=== PATIENT | male | born 1960 | race Caucasian/White ===

== ENCOUNTER 2018-11-17 23:31 | Inpatient (IN) | payer OTHER ==
[2018-11-17] MEDS ORDERED: ONDANSETRON ODT 8 MG TAB.RAPDIS PO STA (23:32)
[2018-11-17] MEDS ORDERED: HYDROmorphone 0.5 MG/0.5 ML SYRINGE IVP STA (23:32)
--- NOTE | 2018-11-17 23:41 | ED ---
Abdominal Pain HPI - General Stated Complaint: abd pain Time Seen by Provider: 11/17/18 23:32 - History of Present Illness Initial Comments: This patient's 58-year-old man brought by to be evaluated for right groin pain. The patient states that it had first come on approximately one week ago when he had also noticed some bulging in the right groin. He states that it became severe starting in the afternoon and he was not able tolerate any movement at all. Patient then came here, by ambulance for evaluation. He denies fever or chills. No change in urination. No vomiting. No change in bowel movements. MD Complaint: abdominal pain Onset/Timin -: week(s) Location: RLQ Radiation: none Severity: severe Quality: aching Consistency: constant Improves With: nothing Worsens With: nothing Associated Symptoms: denies other symptoms - Related Data Home Medications Medication Instructions Recorded Confirmed No Known Home Medications 11/17/18 11/17/18 Allergies Allergy/AdvReac Type Severity Reaction Status Date / Time No Known Allergies Allergy Verified 11/17/18 23:57 Review of Systems ROS Statement: Those systems with pertinent positive or pertinent negative responses have been documented in the HPI. ROS Other: All systems not noted in ROS Statement are negative. Constitutional: Denies: fever, chills Respiratory: Denies: cough, dyspnea Cardiovascular: Denies: chest pain, palpitations, edema Gastrointestinal: Reports: as per HPI, abdominal pain. Denies: vomiting, diarrhea, constipation, melena, hematochezia Genitourinary: Reports: as per HPI, testicular pain, testicular mass. Denies: urgency, dysuria, frequency, hematuria, discharge Musculoskeletal: Denies: back pain Skin: Denies: rash, lesions Neurological: Denies: headache General Exam General appearance: alert, in distress Head exam: Present: atraumatic, normocephalic Eye exam: Present: normal appearance. Absent: scleral icterus, conjunctival injection ENT exam: Present: normal oropharynx Neck exam: Present: normal inspection Respiratory exam: Present: normal lung sounds bilaterally. Absent: respiratory distress, wheezes, rales, rhonchi, stridor Cardiovascular Exam: Present: regular rate, normal rhythm, normal heart sounds. Absent: systolic murmur, diastolic murmur, rubs, gallop GI/Abdominal exam: Present: soft, hernia (There is a right inguinal hernia). Absent: distended, tenderness, guarding, rebound, rigid, mass exam: Present: other (There is an inguinal hernia into the right hemiscrotum.) Extremities exam: Present: normal inspection, normal capillary refill. Absent: pedal edema, calf tenderness Back exam: Present: normal inspection. Absent: CVA tenderness (R), CVA tenderness (L) Neurological exam: Present: alert Skin exam: Present: warm, dry, intact, normal color. Absent: rash Course Vital Signs 11/17/18 11/18/18 23:34 01:36 Temperature 99.2 F Pulse Rate 89 Respiratory 20 Rate Blood Pressure 141/86 O2 Sat by Pulse 100 Oximetry - Reevaluation(s) Reevaluation #1: 11/18/18 01:01 Case is discussed with Dr. Portillo, surgeon on-call. I discussed the history and physical, lab findings, CT result. Medical Decision Making - Medical Decision Making Patient's 58-year-old man presenting with right groin pain and swelling. The patient has obvious inguinal hernia. Case is discussed with Dr. Portillo. His treatment recommendations are incorporated. - Lab Data Result diagrams: 11/17/18 23:45 11/17/18 23:45 Lab Results 11/17/18 11/17/18 11/17/18 Range/Units 23:45 23:45 23:45 WBC 16.1 H (3.8-10.6) k/uL RBC 4.93 (4.30-5.90) m/uL Hgb 14.4 (13.0-17.5) gm/dL Hct 43.1 (39.0-53.0) % MCV 87.4 (80.0-100.0) fL MCH 29.2 (25.0-35.0) pg MCHC 33.4 (31.0-37.0) g/dL RDW 15.0 (11.5-15.5) % Plt Count 280 (150-450) k/uL Neutrophils % 86 % Lymphocytes % 9 % Monocytes % 3 % Eosinophils % 1 % Basophils % 0 % Neutrophils # 13.9 H (1.3-7.7) k/uL Lymphocytes # 1.4 (1.0-4.8) k/uL Monocytes # 0.5 (0-1.0) k/uL Eosinophils # 0.1 (0-0.7) k/uL Basophils # 0.0 (0-0.2) k/uL Sodium 136 L (137-145) mmol/L Potassium 3.5 (3.5-5.1) mmol/L Chloride 104 (98-107) mmol/L Carbon Dioxide 18 L (22-30) mmol/L Anion Gap 14 mmol/L BUN 18 (9-20) mg/dL Creatinine 1.02 (0.66-1.25) mg/dL Est GFR (CKD-EPI)AfAm >90 (>60 ml/min/1.73 sqM) Est GFR (CKD-EPI)NonAf 81 (>60 ml/min/1.73 sqM) Glucose 160 H (74-99) mg/dL Plasma Lactic Acid Melchor 5.8 H* (0.7-2.0) mmol/L Calcium 9.3 (8.4-10.2) mg/dL Total Bilirubin 0.4 (0.2-1.3) mg/dL AST 54 (17-59) U/L ALT 53 (21-72) U/L Alkaline Phosphatase 92 (38-126) U/L Total Protein 7.4 (6.3-8.2) g/dL Albumin 4.3 (3.5-5.0) g/dL Amylase 102 (30-110) U/L Lipase 120 (23-300) U/L Disposition Clinical Impression: Strangulated inguinal hernia Disposition: ADMITTED IP TO THIS [facility] Condition: Critical Is patient prescribed a controlled substance at d/c from ED?: No Referrals: None,Stated [Primary Care Provider] - 1-2 days
[2018-11-18 00:08] LABS: ALT 53 U/L (21-72); AST 54 U/L (17-59); African American GFR (CKD) >90 (>60 ml/min/1.73 sqM); Albumin 4.3 g/dL (3.5-5.0); Alkaline Phosphatase 92 U/L (38-126); Amylase 102 U/L (30-110); Anion Gap 14 mmol/L; Blood Urea Nitrogen 18 mg/dL (9-20); Calcium 9.3 mg/dL (8.4-10.2); Carbon Dioxide 18 mmol/L (22-30); Chloride 104 mmol/L (98-107); Glucose 160 mg/dL (74-99); Lipase 120 U/L (23-300); Potassium 3.5 mmol/L (3.5-5.1); Sodium 136 mmol/L (137-145); Total Bilirubin 0.4 mg/dL (0.2-1.3); Total Protein 7.4 g/dL (6.3-8.2)
[2018-11-18 00:09] LABS: Basophils % (A) 0 %; Eosinophils # (A) 0.1 k/uL (0-0.7); Eosinophils % (A) 1 %; HCT 43.1 % (39.0-53.0); HGB 14.4 gm/dL (13.0-17.5); Lymphocytes # (A) 1.4 k/uL (1.0-4.8); Lymphocytes % (A) 9 %; MCH 29.2 pg (25.0-35.0); MCHC 33.4 g/dL (31.0-37.0); MCV 87.4 fL (80.0-100.0); Mean Platelet Volume 7.4; Monocytes # (A) 0.5 k/uL (0-1.0); Monocytes % (A) 3 %; Neutrophils # (A) 13.9 k/uL (1.3-7.7); Neutrophils % (A) 86 %; Platelet Count 280 k/uL (150-450); RBC 4.93 m/uL (4.30-5.90); WBC 16.1 k/uL (3.8-10.6)
--- NOTE | 2018-11-18 00:53 | CT ---
History: ITS.REASON CT Reason: abdominal pain Exam: CT ABDOMEN + PELVIS With Contrast Technique more: CTDI is 8.6 mGy and DLP is 970.7 mGy-cm. Technique more: This CT exam was performed using one or more of the following dose reduction techniques: automated exposure control, adjustment of the mA and/or kV according to patient size, and/or use of iterative reconstruction technique. Comparison: None available FINDINGS: The lung bases are clear. Abdominal solid organs, gallbladder and abdominal aorta appear within limits. Right renal cyst. Moderate to large right inguinal hernia containing small bowel and fluid with stranding and edema. There is question of decreased to absent appearing enhancement of wall of bowel with in the hernia for example coronal 34 and axial 97 concerning for ischemia, vascular compromise. Short segment of small bowel within the right lower quadrant adjacent to the hernia with segments leading to the hernia mouth with appearance of bowel wall thickening and adjacent mesenteric stranding and edema for example coronal 32 through 41 which may be reactive or due to ischemia. Recommend surgical consult. Retrocecal appendix appears within limits. Diverticulosis. IMPRESSION: Moderate to large right inguinal hernia containing small bowel and fluid with stranding and edema. There is question of decreased to absent appearing enhancement of wall of bowel with in the hernia for example coronal 34 and axial 97 concerning for ischemia, vascular compromise. Short segment of small bowel within the right lower quadrant adjacent to the hernia with segments leading to the hernia mouth with appearance of bowel wall thickening and adjacent mesenteric stranding and edema for example coronal 32 through 41 which may be reactive or due to ischemia. Recommend surgical consult. <MYCVCSECTION> Critical Value Communications 11/18/18 00:53 Call Doctor Regarding Above results, called IMELAD Arredondo on 11/18 00:53 (-04:00)
[2018-11-18] MEDS ORDERED: NALOXONE 0.4 MG/ML 1 ML VIAL IV PRN (01:03)
[2018-11-18] MEDS ORDERED: HYDROmorphone 1 MG/ML 1 ML SYRINGE IVP STA (01:21)
[2018-11-18] MEDS: SODIUM CHLORIDE 0.9% 1,000 ML IV SCH ×3 (01:35→17:18)
[2018-11-18] MEDS ORDERED: SODIUM CHLORIDE 0.9% 1,000 ML IV ONE ×2 (01:45→02:56)
[2018-11-18] MEDS ORDERED: CEFEPIME 2 GM in SODIUM CHLORIDE 0.9% 100 ML IVPB ONE (03:00)
[2018-11-18 03:09] LABS: Appearance,Urine Clear (Clear); Bilirubin,Urine Negative (Negative); Blood,Urine Negative (Negative); Color,Urine Yellow; Glucose,Urine (UA) Negative (Negative); Ketones,Urine Trace (Negative); Leukocyte Esterase,Urine Negative (Negative); Nitrite,Urine Negative (Negative); PH, Urine 6.5 (5.0-8.0); Protein,Urine Negative (Negative); Specific Gravity,Urine 1.039 (1.001-1.035); Urobilinogen,Urine <2.0 mg/dL (<2.0)
[2018-11-18] MEDS: HYDROmorphone 1 MG/ML 1 ML SYRINGE IVP PRN ×4 (06:21→20:53)
[2018-11-18] MEDS: PANTOPRAZOLE 40 MG/10 ML VIAL IV SCH (09:27)
[2018-11-18] MEDS ORDERED: IV FLUID CONTINUATION 300 ML IV ONE (10:37)
[2018-11-18] MEDS ORDERED: ONDANSETRON 4 MG/2 ML VIAL IVP ONE (10:52)
[2018-11-18] MEDS ORDERED: DEXAMETHASONE SOD PHOS (MDV) 100 MG/10 ML VIAL IV ONE (10:53)
--- NOTE | 2018-11-18 11:38 | P.GSHP ---
History of Present Illness H&P Date: 11/18/18 Chief Complaint: Incarcerated right inguinal hernia This is a 58-year-old male who resented to the emergency room last night with right inguinal pain. Patient has a history of a right inguinal hernia for last month. Patient developed increasing pain. Patient had his hernia reduced by the emergency from last night. He states his pain is better. He states the mass in his groin is also improved. Past Medical History Past Medical History: No Reported History History of Any Multi-Drug Resistant Organisms: None Reported Additional Past Surgical History / Comment(s): Pt is unsure but thinks he may have had a colonoscopy many years ago. Past Anesthesia/Blood Transfusion Reactions: No Reported Reaction Smoking Status: Never smoker - Past Family History Father Family Medical History: Cancer, Musculoskeletal Disorder, Neurologic Disorder Additional Family Medical History / Comment(s): Father had melanoma and parkinson's dx. He is . Mother Family Medical History: No Reported History Additional Family Medical History / Comment(s): Mother is healthy Medications and Allergies Home Medications Medication Instructions Recorded Confirmed Type No Known Home Medications 11/17/18 11/17/18 History Allergies Allergy/AdvReac Type Severity Reaction Status Date / Time No Known Allergies Allergy Verified 11/17/18 23:57 Surgical - Exam Vital Signs Pulse Resp BP Pulse Ox 89 20 141/86 100 11/17/18 23:34 11/17/18 23:34 11/17/18 23:34 11/17/18 23:34 - General well developed, well nourished, no distress - Eyes PERRL - ENT normal pinna - Neck no masses - Respiratory normal expansion - Cardiovascular Rhythm: regular - Abdomen Abdomen: soft, non tender Hernia: inguinal (Reducible right inguinal hernia) Results - Labs 11/17/18 23:45 11/17/18 23:45 Abnormal Lab Results - Last 24 Hours (Table) 11/17/18 11/17/18 11/17/18 Range/Units 23:45 23:45 23:45 WBC 16.1 H (3.8-10.6) k/uL Neutrophils # 13.9 H (1.3-7.7) k/uL Sodium 136 L (137-145) mmol/L Carbon Dioxide 18 L (22-30) mmol/L Glucose 160 H (74-99) mg/dL Plasma Lactic Acid Melchor 5.8 H* (0.7-2.0) mmol/L Ur Specific N[place] (1.001-1.035) Urine Ketones (Negative) 11/18/18 Range/Units 03:00 WBC (3.8-10.6) k/uL Neutrophils # (1.3-7.7) k/uL Sodium (137-145) mmol/L Carbon Dioxide (22-30) mmol/L Glucose (74-99) mg/dL Plasma Lactic Acid Melchor (0.7-2.0) mmol/L Ur Specific [place] 1.039 H (1.001-1.035) Urine Ketones Trace H (Negative) Diabetes panel 11/17/18 Range/Units 23:45 Sodium 136 L (137-145) mmol/L Potassium 3.5 (3.5-5.1) mmol/L Chloride 104 (98-107) mmol/L Carbon Dioxide 18 L (22-30) mmol/L BUN 18 (9-20) mg/dL Creatinine 1.02 (0.66-1.25) mg/dL Glucose 160 H (74-99) mg/dL Calcium 9.3 (8.4-10.2) mg/dL AST 54 (17-59) U/L ALT 53 (21-72) U/L Alkaline Phosphatase 92 (38-126) U/L Total Protein 7.4 (6.3-8.2) g/dL Albumin 4.3 (3.5-5.0) g/dL Calcium panel 11/17/18 Range/Units 23:45 Calcium 9.3 (8.4-10.2) mg/dL Albumin 4.3 (3.5-5.0) g/dL Pituitary panel 11/17/18 Range/Units 23:45 Sodium 136 L (137-145) mmol/L Potassium 3.5 (3.5-5.1) mmol/L Chloride 104 (98-107) mmol/L Carbon Dioxide 18 L (22-30) mmol/L BUN 18 (9-20) mg/dL Creatinine 1.02 (0.66-1.25) mg/dL Glucose 160 H (74-99) mg/dL Calcium 9.3 (8.4-10.2) mg/dL Adrenal panel 11/17/18 Range/Units 23:45 Sodium 136 L (137-145) mmol/L Potassium 3.5 (3.5-5.1) mmol/L Chloride 104 (98-107) mmol/L Carbon Dioxide 18 L (22-30) mmol/L BUN 18 (9-20) mg/dL Creatinine 1.02 (0.66-1.25) mg/dL Glucose 160 H (74-99) mg/dL Calcium 9.3 (8.4-10.2) mg/dL Total Bilirubin 0.4 (0.2-1.3) mg/dL AST 54 (17-59) U/L ALT 53 (21-72) U/L Alkaline Phosphatase 92 (38-126) U/L Total Protein 7.4 (6.3-8.2) g/dL Albumin 4.3 (3.5-5.0) g/dL Assessment and Plan Assessment: Right inguinal hernia. Patient will undergo open repair.
[2018-11-18] MEDS ORDERED: ROCURONIUM BROMIDE 10 MG/ML 10 ML VIAL IV ONE (12:01)
[2018-11-18] MEDS ORDERED: GLYCOPYRROLATE 0.2 MG/ML 2 ML VIAL ONE (12:01)
[2018-11-18] MEDS ORDERED: MIDAZOLAM 2 MG/2 ML VIAL ONE (12:01)
[2018-11-18] MEDS ORDERED: LIDOCAINE 1% INJ 10MG/ML (20 ML MDV) ONE (12:01)
[2018-11-18] MEDS ORDERED: PROPOFOL 10 MG/ML 20 ML VIAL IV ONE (12:01)
[2018-11-18] MEDS ORDERED: SUCCINYLCHOLINE CHLORIDE 100 MG/5 ML SYR IV ONE (12:01)
[2018-11-18] MEDS ORDERED: fentaNYL (PF) 50 MCG/ML 2 ML AMP ONE (12:01)
[2018-11-18] MEDS ORDERED: NEOSTIGMINE 1 MG/ML 10 ML VIAL ONE (12:01)
[2018-11-18] MEDS ORDERED: LACTATED RINGERS 1,000 ML IV ONE (12:06)
[2018-11-18] MEDS ORDERED: HEPARIN SODIUM,PORCINE 5,000 UNIT/ML 1 ML VIAL SQ ONE (12:07)
[2018-11-18] MEDS ORDERED: BUPIVACAIN-EPI 0.25%-1:200,000 30 ML VIAL SQ ONE ×3 (12:07→12:48)
[2018-11-18] MEDS ORDERED: SODIUM CHLORIDE 0.9% 100 ML with ceFAZolin 2,000 MG IV ONE ×2 (12:20)
--- NOTE | 2018-11-18 12:59 | P.OP ---
Date of Procedure: 11/18/18 Preoperative Diagnosis: Right inguinal hernia Postoperative Diagnosis: Right inguinal hernia Procedure(s) Performed: (Of right inguinal hernia Anesthesia: NAKIA Surgeon: Florian Portillo Estimated Blood Loss (ml): 5 Pathology: other (Hernia sac) Condition: stable Disposition: PACU Description of Procedure: HDESCRIPTION OF PROCEDURE: The patient was placed in the supine position after receiving adequate anesthesia. Patient's right groin was prepped and draped in the usual sterile fashion. A standard hernia incision was made and the subcutaneous tissues were divided with electrocautery. The fascia of the external oblique was exposed. A ashley the fascia was made with #15 blade. The fascia was then opened with pair of Metzenbaum scissors. A Weitlaner retractor was placed in the wound and the cord structures were grasped and dissected free from the inguinal canal. A rubber Obdulio drain was placed around the cord structures. The hernial sac was seen on the anterior-medial portion of the cord and this was dissected free from the cord. The hernia sac was then invaginated to the peritoneal cavity. Using blunt finger dissection, the preperitoneal space was dissected and then the Prolene hernial mesh plug was placed into the prepared space. The inferior leaf was expanded. The superior leaf was secured to the pubic tubercle using 2-0 Prolene suture. The lateral portion of the superior leaf was incised and cords tied and secured to the transversalis fascia using 2-0 Prolene suture. Fascia of the external oblique was then closed using #0 Vicryl suture. The Nelson drain was removed. The Scarpas fascia was then closed with 3-0 Vicryl suture and skin was closed with enid. The patient tolerated the procedure well.
[2018-11-19] MEDS: SODIUM CHLORIDE 0.9% 1,000 ML IV SCH ×2 (00:20→08:37)
[2018-11-19] MEDS: HYDROmorphone 1 MG/ML 1 ML SYRINGE IVP PRN ×3 (00:20→10:28)
[2018-11-19 05:52] VITALS: BP 103/64; PULSE 75; TEMP 98.3
[2018-11-19] MEDS: PANTOPRAZOLE 40 MG/10 ML VIAL IV SCH (08:36)
--- NOTE | 2018-11-19 10:54 | P.DS ---
Providers Date of admission: 11/18/18 01:03 Expected date of discharge: 11/19/18 Attending physician: Florian Portillo Consults: 11/18/18 13:00 Consult Physician Routine Consulting Provider: Chris Hurtado Consult Reason/Comments: Medical management, new patient Do you want consulting provider notified?: Yes Primary care physician: Stated None Hospital Course: This is a 58-year-old male who was admitted to the hospital for an incarcerated right we'll hernia. Patient underwent open repair. Please see chart for details. On the day of discharge patient is doing well. Patient Condition at Discharge: Critical Plan - Discharge Summary Discharge Rx Participant: No New Discharge Prescriptions: New Docusate [Colace] 100 mg PO BID #20 capsule HYDROcodone/APAP 5-325MG [Southgate 5-325] 1 tab PO Q6HR PRN #10 tab PRN Reason: Pain Discharge Medication List Docusate [Colace] 100 mg PO BID #20 capsule 11/19/18 [Rx] HYDROcodone/APAP 5-325MG [Southgate 5-325] 1 tab PO Q6HR PRN #10 tab 11/19/18 [Rx] Follow up Appointment(s)/Referral(s): None,Stated [Primary Care Provider] - 1-2 days Florian Portillo MD [STAFF PHYSICIAN] - 1 Week
[2018-11-19 11:16] VITALS: RESP 18
[2018-11-20] MEDS ORDERED: PANTOPRAZOLE 40 MG TABLET PO SCH (09:00)
== END 2018-11-19 12:18 | disposition home or self-care (01) | DRG 352 ==
LOC: EC 23:31 → 3NMEDONC 11-18 01:03
PROVIDERS: ADMIT Surgery; ATTEND Surgery
PROC: 0YU50JZ Supplement Right Inguinal Region with Synthetic Substitute, Open Approach (ICD-10-PCS; principal; 2018-11-18 09:45)
DX: K40.30 Unilateral inguinal hernia, with obstruction, without gangrene, not specified as recurrent (principal); Z80.8 Family history of malignant neoplasm of other organs or systems; Z82.0 Family history of epilepsy and other diseases of the nervous system; Z82.69 Family history of other diseases of the musculoskeletal system and connective tissue
CPT/HCPCS: 36415; 74177; 80053; 81003; 82150; 83605; 83690; 85025; 88302; 96361; 96365; 96366; 96374; 96376; 99285

== ENCOUNTER 2022-02-07 11:06 | Inpatient (IN) | payer OTHER ==
--- NOTE | 2022-02-07 13:03 | XR ---
EXAMINATION TYPE: XR KUB DATE OF EXAM: 02/07/2022 COMPARISON: CT abdomen pelvis 11/17/2018. HISTORY: Abdominal pain TECHNIQUE: Single supine KUB image of the abdomen is obtained FINDINGS: Small bowel demonstrates no evidence for dilatation or air fluid levels. Gas and fecal material is seen in non-distended colon. This is most pronounced in the cecum. No convincing evidence for pneumoperitoneum. Pelvic phleboliths. The lung bases are clear. The osseous structures are intact. IMPRESSION: Overall nonobstructive bowel gas pattern.
[2022-02-07] MEDS ORDERED: PANTOPRAZOLE 40 MG/10 ML VIAL IVP STA (13:06)
[2022-02-07] MEDS ORDERED: SODIUM CHLORIDE 0.9% 1,000 ML IV STA ×2 (13:06→15:46)
--- NOTE | 2022-02-07 13:14 | ED ---
General Adult HPI - General Chief complaint: Abdominal Pain Stated complaint: blood in stool Time Seen by Provider: 02/07/22 12:58 Source: patient, family, RN notes reviewed Mode of arrival: ambulatory Limitations: no limitations - History of Present Illness Initial comments: Patient is a pleasant 61-year-old male presenting to the emergency Department with abdominal discomfort and diarrhea. Onset of symptoms was around a week ago. Patient is having around 4 episodes today. There is some blood mixed in with stool. Patient is concerned he has hemorrhoids. Patient has lower abdominal discomfort rated 6/10. No history of similar symptoms previously. Patient does feel somewhat fatigued. No dyspnea. No nausea vomiting. No fever. - Related Data Home Medications Medication Instructions Recorded Confirmed Multivitamins, Thera [Multivitamin 1 tab PO DAILY 02/07/22 02/07/22 (formulary)] Allergies Allergy/AdvReac Type Severity Reaction Status Date / Time No Known Allergies Allergy Verified 02/07/22 14:49 Review of Systems ROS Statement: Those systems with pertinent positive or pertinent negative responses have been documented in the HPI. ROS Other: All systems not noted in ROS Statement are negative. Constitutional: Denies: fever Eyes: Denies: eye pain ENT: Denies: ear pain Respiratory: Denies: cough Cardiovascular: Denies: chest pain Endocrine: Reports: fatigue Gastrointestinal: Reports: abdominal pain, diarrhea, hematochezia. Denies: nausea, vomiting Genitourinary: Denies: dysuria Musculoskeletal: Denies: back pain Skin: Denies: rash Neurological: Denies: weakness Past Medical History Past Medical History: No Reported History History of Any Multi-Drug Resistant Organisms: None Reported Additional Past Surgical History / Comment(s): Pt is unsure but thinks he may have had a colonoscopy many years ago. Past Anesthesia/Blood Transfusion Reactions: No Reported Reaction Past Psychological History: No Psychological Hx Reported Past Alcohol Use History: Rare Past Drug Use History: None Reported - Past Family History Father Family Medical History: Cancer, Musculoskeletal Disorder, Neurologic Disorder Additional Family Medical History / Comment(s): Father had melanoma and parkinson's dx. He is . Mother Family Medical History: No Reported History Additional Family Medical History / Comment(s): Mother is healthy General Exam Limitations: no limitations General appearance: alert, in no apparent distress Head exam: Present: normocephalic Eye exam: Present: normal appearance Neck exam: Present: normal inspection Respiratory exam: Present: normal lung sounds bilaterally Cardiovascular Exam: Present: tachycardia GI/Abdominal exam: Present: soft, tenderness (Mild lower abdominal tenderness to palpation), normal bowel sounds. Absent: distended, guarding, rebound, rigid, pulsatile mass Rectal exam: Present: normal inspection Extremities exam: Present: normal inspection Neurological exam: Present: alert Psychiatric exam: Present: normal affect, normal mood Skin exam: Present: normal color Course Vital Signs 02/07/22 11:27 Temperature 99.1 F Pulse Rate 115 H Respiratory 18 Rate Blood Pressure 91/65 O2 Sat by Pulse 96 Oximetry - Reevaluation(s) Reevaluation #1: 02/07/22 15:50 There is concern for sepsis diagnosed at 1540. Blood culture and lactic acid and IV antibiotics of all been ordered. EKG Findings - EKG Comments: EKG Findings:: Sinus tachycardia 102. CT 120.. 94. QT 378. QTC 436. Left axis. PVC present. Normal QRS. Nonspecific ST-T. Medical Decision Making - Medical Decision Making Patient reevaluated. Patient and family updated. Case was discussed with Dr. Elaine, who will admit covering hospital call. Potassium replaced - Lab Data Result diagrams: 02/07/22 13:08 02/07/22 13:08 Lab Results 02/07/22 02/07/22 02/07/22 Range/Units 13:08 13:08 13:08 WBC 18.6 H (3.8-10.6) k/uL RBC 4.87 (4.30-5.90) m/uL Hgb 13.3 (13.0-17.5) gm/dL Hct 40.6 (39.0-53.0) % MCV 83.4 (80.0-100.0) fL MCH 27.3 (25.0-35.0) pg MCHC 32.7 (31.0-37.0) g/dL RDW 15.0 (11.5-15.5) % Plt Count 699 H (150-450) k/uL MPV 7.3 Neutrophils % (Manual) 79 % Band Neuts % (Manual) 5 % Lymphocytes % (Manual) 11 % Monocytes % (Manual) 5 % Neutrophils # (Manual) 15.60 H (1.3-7.7) k/uL Lymphocytes # (Manual) 2.05 (1.0-4.8) k/uL Monocytes # (Manual) 0.93 (0-1.0) k/uL Nucleated RBCs 0 (0-0) /100 WBC Manual Slide Review Performed Poikilocytosis Slight PT 11.4 (9.0-12.0) sec INR 1.1 (<1.2) APTT 25.5 (22.0-30.0) sec Sodium 134 L (137-145) mmol/L Potassium 2.7 L* (3.5-5.1) mmol/L Chloride 96 L (98-107) mmol/L Carbon Dioxide 22 (22-30) mmol/L Anion Gap 16 mmol/L BUN 13 (9-20) mg/dL Creatinine 1.15 (0.66-1.25) mg/dL Est GFR (CKD-EPI)AfAm 80 (>60 ml/min/1.73 sqM) Est GFR (CKD-EPI)NonAf 69 (>60 ml/min/1.73 sqM) Glucose 127 H (74-99) mg/dL Calcium 7.8 L (8.4-10.2) mg/dL Total Bilirubin 1.0 (0.2-1.3) mg/dL AST 29 (17-59) U/L ALT 21 (4-49) U/L Alkaline Phosphatase 106 (38-126) U/L Total Protein 6.8 (6.3-8.2) g/dL Albumin 3.1 L (3.5-5.0) g/dL Amylase 50 (30-110) U/L Lipase 118 (23-300) U/L Stool Occult Blood (Negative) 02/07/22 Range/Units 13:08 WBC (3.8-10.6) k/uL RBC (4.30-5.90) m/uL Hgb (13.0-17.5) gm/dL Hct (39.0-53.0) % MCV (80.0-100.0) fL MCH (25.0-35.0) pg MCHC (31.0-37.0) g/dL RDW (11.5-15.5) % Plt Count (150-450) k/uL MPV Neutrophils % (Manual) % Band Neuts % (Manual) % Lymphocytes % (Manual) % Monocytes % (Manual) % Neutrophils # (Manual) (1.3-7.7) k/uL Lymphocytes # (Manual) (1.0-4.8) k/uL Monocytes # (Manual) (0-1.0) k/uL Nucleated RBCs (0-0) /100 WBC Manual Slide Review Poikilocytosis PT (9.0-12.0) sec INR (<1.2) APTT (22.0-30.0) sec Sodium (137-145) mmol/L Potassium (3.5-5.1) mmol/L Chloride (98-107) mmol/L Carbon Dioxide (22-30) mmol/L Anion Gap mmol/L BUN (9-20) mg/dL Creatinine (0.66-1.25) mg/dL Est GFR (CKD-EPI)AfAm (>60 ml/min/1.73 sqM) Est GFR (CKD-EPI)NonAf (>60 ml/min/1.73 sqM) Glucose (74-99) mg/dL Calcium (8.4-10.2) mg/dL Total Bilirubin (0.2-1.3) mg/dL AST (17-59) U/L ALT (4-49) U/L Alkaline Phosphatase (38-126) U/L Total Protein (6.3-8.2) g/dL Albumin (3.5-5.0) g/dL Amylase (30-110) U/L Lipase (23-300) U/L Stool Occult Blood Positive (Negative) - Radiology Data Radiology results: report reviewed (Computed tomography scan of the abdomen pelvis shows long segment of wall thickening and inflammation involving sigmoid, descending and transverse colon with diverticulitis not excluded.), image reviewed (KUB reveals no acute process) Critical Care Time Critical Care Time: Yes Total Critical Care Time: 32 Disposition Clinical Impression: Diverticulitis, Acute colitis Disposition: ADMITTED IP TO THIS [facility] Is patient prescribed a controlled substance at d/c from ED?: No Referrals: None,Stated [REFERRING] - 1-2 days Time of Disposition: 15:51
[2022-02-07 13:38] LABS: Albumin 3.1 g/dL (3.5-5.0); Calcium 7.8 mg/dL (8.4-10.2); Total Protein 6.8 g/dL (6.3-8.2)
[2022-02-07 13:41] LABS: HCT 40.6 % (39.0-53.0); HGB 13.3 gm/dL (13.0-17.5); INR 1.1 (<1.2); MCH 27.3 pg (25.0-35.0); MCHC 32.7 g/dL (31.0-37.0); MCV 83.4 fL (80.0-100.0); Mean Platelet Volume 7.3; Partial Thromboplastin Time 25.5 sec (22.0-30.0); Platelet Count 699 k/uL (150-450); Poikilocytosis Slight; Prothrombin Time 11.4 sec (9.0-12.0); RBC 4.87 m/uL (4.30-5.90); WBC 18.6 k/uL (3.8-10.6)
[2022-02-07 13:43] LABS: Potassium 2.7 mmol/L (3.5-5.1)
[2022-02-07] MEDS ORDERED: POTASSIUM CHLORIDE 20 MEQ in WATER FOR INJECTION 1 100ML.BAG IVPB STA (13:47)
[2022-02-07] MEDS ORDERED: POTASSIUM CHLORIDE ER 20 MEQ TAB.ER PO STA (13:47)
[2022-02-07 14:06] LABS: Band Neutrophils % 5 %; Lymphocytes # (M) 2.05 k/uL (1.0-4.8); Monocytes # (M) 0.93 k/uL (0-1.0); Neutrophils % (M) 79 %; Nucleated Red Blood Cells 0 /100 WBC (0-0); Total Cells Counted 100
--- NOTE | 2022-02-07 14:11 | CT ---
EXAMINATION TYPE: CT abdomen pelvis w con CT DLP: 998.2 mGycm, Automated exposure control for dose reduction was used. DATE OF EXAM: 02/07/2022 2:02 PM COMPARISON: CT abdomen pelvis most recent from 11/17/2018 . CLINICAL INDICATION:Male, 61 years old with history of abdominal pain; Left lower abdominal pain TECHNIQUE: Standard CT of the abdomen and pelvis following the administration of 100 cc of Isovue 3 00 IV contrast material. Coronal and sagittal reformats were performed. FINDINGS: LOWER CHEST: Unremarkable ABDOMEN LIVER: Stable subcentimeter scattered hypoattenuating foci which are too small to characterize. GALLBLADDER AND BILE DUCTS: Unremarkable. PANCREAS: Unremarkable. SPLEEN: Unremarkable. ADRENAL GLANDS: Unremarkable. KIDNEYS AND URETERS: No evidence of hydronephrosis or renal calculus. The kidneys enhance symmetrical ly. Stable right renal cyst. PELVIS BLADDER: Unremarkable REPRODUCTIVE: Unremarkable. ABDOMEN & PELVIS STOMACH AND BOWEL: Small hiatal hernia, duodenum is unremarkable. The appendix is within normal limit s. Long segment circumferential wall thickening of the sigmoid, descending, and transverse colon. The re is subtle surrounding inflammatory changes with additional colonic diverticulosis of the sigmoid c olon. No pericolic abscess. No evidence of bowel obstruction. No pneumatosis or portal venous gas. PERITONEUM: No evidence of pneumoperitoneum or free fluid. VASCULATURE: No evidence of aortic aneurysm. MUSCULOSKELETAL: No acute osseous abnormalities LYMPH NODES: A few mildly prominent mesenteric lymph nodes in the in the lower abdomen, likely reacti ve. SOFT TISSUE/ABDOMINAL WALL: Post surgical changes of right inguinal hernia repair. Patulous left ingu inal ring. Small fat filled umbilical hernia. IMPRESSION: Long segment circumferential wall thickening and inflammatory changes involving the sigmoid, descendi ng, and transverse colon with additional diverticulosis of the sigmoid colon. Findings suggest nonspe cific colitis from an infectious/inflammatory process with diverticulitis not excluded. No pericoloni c abscess.
[2022-02-07] MEDS ORDERED: LEVOFLOXACIN 750MG-D5W PMX 750 MG in DEXTROSE/WATER 1 150ML.BAG IVPB STA (15:46)
[2022-02-07] MEDS ORDERED: ACETAMINOPHEN TAB 325 MG TAB PO PRN (15:51)
[2022-02-07] MEDS ORDERED: NALOXONE 0.4 MG/ML 1 ML VIAL IV PRN (15:51)
[2022-02-07] MEDS: metroNIDAZOLE-NS PMX 500 MG in SALINE 1 100ML.BAG IVPB SCH ×2 (17:53→21:06)
[2022-02-07] MEDS: SODIUM CHLORIDE 0.9% 1,000 ML IV SCH (17:53)
[2022-02-07] MEDS: HYDROmorphone 0.5 MG/0.5 ML SYRINGE IVP PRN (21:15)
[2022-02-07] MEDS ORDERED: SODIUM CHLORIDE 0.9% 500 ML 500 ML IV ONE (21:20)
[2022-02-08] MEDS: SODIUM CHLORIDE 0.9% 1,000 ML IV SCH ×2 (00:53→10:59)
--- NOTE | 2022-02-08 03:15 | HP ---
HISTORY AND PHYSICAL CHIEF COMPLAINT: Lower abdominal pain and bleeding. HISTORY OF PRESENT ILLNESS: This 61-year-old gentleman with a past medical history of no significant medical issues. He was living in [place], the patient has recently moved to the area and was supposed to see Dr. Zaldivar. The patient complains of lower abdominal discomfort and bleeding per rectum. Patient had hemorrhoids. CT scan showed large segmental circumferential thickening, inflammatory changes involving the sigmoid, descending and transverse colon, and the patient was admitted for further evaluation treatment. There is no history of any fever, rigors, or chills at this time. PAST MEDICAL HISTORY: No history of any cardiovascular illness. MEDICATIONS: Prior to admission, multivitamins. ALLERGIES: None. FAMILY HISTORY: No history of heart disease or strokes in family. Family history of neurological disorder. SOCIAL HISTORY: No history of smoking. REVIEW OF SYSTEMS: A 14-point review is negative as mentioned earlier. PHYSICAL EXAMINATION: VITAL SIGNS: Pulse is 98, blood pressure 98/62, and respirations 18. HEENT: Conjunctivae normal. NECK: No jugular venous distention. CARDIOVASCULAR: No murmurs. RESPIRATIONS: Diminished at the basis. No rhonchi, no crackles. ABDOMEN: Soft, mild diffuse tenderness in the lower part. LEGS: No edema. NERVOUS SYSTEM: No focal deficits. SKIN: No rash. JOINTS: No active deformity. LABS: WBC 18.2, other labs are noted. ASSESSMENT: 1. Abdominal pain, possible acute colitis. 2. Increased WBC. 3. Rectal bleeding. RECOMMENDATIONS: This 61-year-old gentleman presented with multiple complex medical issues. The patient initiated on empiric antibiotics, Levaquin, Flagyl, and we will obtain Infectious Disease consultations and guarded prognosis. Further recommendations will follow. See orders for details. MMODL / IJN: [id number] /
[2022-02-08] MEDS: metroNIDAZOLE-NS PMX 500 MG in SALINE 1 100ML.BAG IVPB SCH ×4 (04:04→21:38)
[2022-02-08] MEDS: PANTOPRAZOLE 40 MG/10 ML VIAL IV SCH (07:34)
[2022-02-08] MEDS: HYDROmorphone 0.5 MG/0.5 ML SYRINGE IVP PRN ×5 (07:35→21:39)
[2022-02-08 08:54] LABS: HCT 28.5 % (39.6-50.0); MCH 27.9 pg (27.0-32.0); MCHC 35.1 g/dL (32.0-37.0); MCV 79.6 fL (80.0-97.0); Mean Platelet Volume 8.6 fL (9.5-12.2); NRBC Per 100 WBC 0 /100 WBCS (0.0-0.0); Platelet Count 449 X 10*3/uL (140-440); RBC 3.58 X 10*6/uL (4.40-5.60); RDW 15.3 % (11.5-14.5); WBC 12.01 X 10*3/uL (4.50-10.00)
[2022-02-08 09:38] LABS: African American GFR (CKD) 107.2 (60.0-200.0); Anion Gap 10.9 mmol/L (10.00-18.00); BUN/Creat Ratio 11.11 Ratio (12.00-20.00); Calcium 6.8 mg/dL (8.7-10.3); Carbon Dioxide 23.1 mmol/L (20.0-27.5); Non-African American GFR(CKD) 92.5 (60.0-200.0); Potassium 2.6 mmol/L (3.5-5.5)
[2022-02-08] MEDS ORDERED: Potassium Replacement Protocol 1 EACH MISC MISCELLANE PRN ×2 (09:43→15:39)
[2022-02-08] MEDS: POTASSIUM CHLORIDE ER 20 MEQ TAB.ER PO SCH ×6 (09:51→18:41)
[2022-02-08 10:09] LABS: Basophils # (A) 0.07 X 10*3/uL (0.00-0.10); Basophils % (A) 0.6 %; Eosinophils # (A) 0.07 X 10*3/uL (0.04-0.35); Eosinophils % (A) 0.6 %; Immature Grans, Automated 1.2 %; Lymphocytes # (A) 1.23 X 10*3/uL (0.90-5.00); Lymphocytes % (A) 10.2 %; Monocytes # (A) 1.17 X 10*3/uL (0.20-1.00); Monocytes % (A) 9.7 %; Neutrophils # (A) 9.32 X 10*3/uL (1.80-7.70); Neutrophils % (A) 77.7 %
--- NOTE | 2022-02-08 15:33 | P.PN ---
Subjective Progress Note Date: 02/08/22 This is a 61-year-old male who was recently admitted with abdominal pain and bleeding per rectum with a history of hemorrhoids although CT was done showing a large segmental circumferential thickening with inflammatory changes involving the sigmoid, descending and transverse colon and is being closely monitored. Infectious disease and general surgery consulted and patient was maintained on Flagyl and Levaquin and is being transitioned to IV ceftriaxone along with Flagyl and IV hydration. Patient continues with elevated WBC of 12.01 and hemoglobin is stable at 10.0. Sodium is 134 and potassium critically low at 2.6 today. Will replace per protocol and will also add potassium to the IV. C. dif f testing was negative. Patient being treated for colitis and is maintained on clear liquids. Patient reports he continues to have diarrhea and multiple episodes although less frequent today. Stool cultures also ordered and pending at this time. Recommend follow-up potassium level in the evening and we'll continue to replace. Patient is currently afebrile denies chest pain or shortness of breath. Patient denies nausea or vomiting and is tolerating the clear liquids. Patient reports anything he eats is passing through him within the next few hours. Review of systems: Constitutional: No reports of fatigue, fever, or chills Cardiovascular: No reports of chest pain or palpitations Respiratory: No reports of shortness of breath or cough GI: No reports of nausea, no reports of of vomiting, reports continued diarrhea and loose stools : No reports of dysuria or retention Neurovascular: No reports of generalized weakness All medications have been reviewed Active Medications Acetaminophen (Acetaminophen Tab 325 Mg Tab) 650 mg PO Q6HR PRN PRN Reason: Mild Pain or Fever > 100.5 Hydromorphone HCl (Hydromorphone 1 Mg/Ml 1 Ml Syringe) 1 mg IVP Q3HR PRN PRN Reason: Severe Pain (Scale 7 to 10) Hydromorphone HCl (Hydromorphone 0.5 Mg/0.5 Ml Syringe) 0.5 mg IVP Q3HR PRN PRN Reason: Moderate Pain (Scale 4 to 6) Last Admin: 02/08/22 14:27 Dose: 0.5 mg Metronidazole 500 mg/ IV (Solution) 100 mls @ 100 mls/hr IVPB Q6H [facility]; Protocol Last Admin: 02/08/22 09:45 Dose: 100 mls/hr Potassium Chloride/Sodium Chloride (Ns-Kcl 20 Meq/L Iv Solution) 1,000 mls @ 130 mls/hr IV .[id number] [facility] Ceftriaxone Sodium 2 gm/ (Sodium Chloride) 50 mls @ 100 mls/hr IVPB Q24HR [facility]; Protocol Miscellaneous Information (Potassium Replacement Protocol 1 Each Misc) 1 each MISCELLANE DAILY PRN; Protocol PRN Reason: Per Protocol Naloxone HCl (Naloxone 0.4 Mg/Ml 1 Ml Vial) 0.2 mg IV Q2M PRN PRN Reason: Opioid Reversal Pantoprazole Sodium (Pantoprazole 40 Mg/10 Ml Vial) 40 mg IV DAILY [facility] Last Admin: 02/08/22 07:34 Dose: 40 mg PHYSICAL EXAMINATION: GENERAL: The patient is alert and oriented x4, Well developed, well nourished. HEENT: Pupils are round and equally reacting to light. EOMI. no scleral icterus. No conjunctival pallor. Normocephalic, atraumatic. No pharyngeal erythema. No thyromegaly. CARDIOVASCULAR: S1 and S2 muffled PULMONARY: diminished breath sounds bilaterally with no wheezing or rhonchi noted. ABDOMEN: soft. Mildly tender on exam. obese. non-distended, normoactive bowel sounds. No palpable organomegaly. MUSCULOSKELETAL: No joint swelling or deformity. EXTREMITIES: No cyanosis, clubbing, or pedal edema. NEUROLOGICAL: Gross neurological examination did not reveal any focal deficits. SKIN: No rashes. Assessment: Abdominal pain with diarrhea, acute colitis Leukocytosis secondary to above Rectal bleeding secondary to hemorrhoids and continued diarrhea GI prophylaxis DVT prophylaxis Full code Plan: Recommend continue with IV hydration and clear liquids Patient is maintained on IV antibiotics and being transitioned to ceftriaxone and will continue Flagyl with infectious disease following Stool culture ordered and pending at this time Potassium critically low at 2.6 and being replaced per protocol and will add potassium to the IV fluids and follow-up with evening labs General surgery consulted and pending Recommend repeat labs in the a.m. The impression and plan of care has been dictated by Razia Myrick, nurse practitioner as directed. Dr. Clemencia MD I have performed a history and examination and MDM of this patient, discussed the same with the dictator, and agree with the dictator's assessment and plan as written ,documented as a scribe. Based on total visit time, I have performed more than 50% of the visit. Any additional findings or plans will be noted. Objective - Vital Signs Vital signs: Vital Signs Temp 99.3 F 02/08/22 04:18 Pulse 92 02/08/22 04:18 Resp 15 02/08/22 04:18 BP 132/78 02/08/22 04:18 Pulse Ox 94 L 02/08/22 04:18 FiO2 Intake & Output 02/07/22 02/08/22 02/08/22 18:59 06:59 18:59 Weight 90.718 kg Other: Voiding Method Toilet # Voids 1 - Labs CBC & Chem 7: 02/08/22 05:59 02/08/22 05:59 Labs: Abnormal Lab Results - Last 24 Hours (Table) 02/07/22 02/07/22 02/07/22 Range/Units 13:08 13:08 16:00 WBC 18.6 H (3.8-10.6) k/uL RBC (4.40-5.60) X 10*6/uL Hgb (13.0-17.0) g/dL Hct (39.6-50.0) % MCV (80.0-97.0) fL RDW (11.5-14.5) % Plt Count 699 H (150-450) k/uL MPV (9.5-12.2) fL Neutrophils # (Manual) 15.60 H (1.3-7.7) k/uL Sodium 134 L (137-145) mmol/L Potassium 2.7 L* (3.5-5.1) mmol/L Chloride 96 L (98-107) mmol/L BUN/Creatinine Ratio (12.00-20.00) Ratio Glucose 127 H (74-99) mg/dL Plasma Lactic Acid Melchor 2.5 H* (0.7-2.0) mmol/L Calcium 7.8 L (8.4-10.2) mg/dL Albumin 3.1 L (3.5-5.0) g/dL 02/07/22 02/08/22 02/08/22 Range/Units 19:32 05:59 05:59 WBC 12.01 H (3.8-10.6) k/uL RBC 3.58 L (4.40-5.60) X 10*6/uL Hgb 10.0 L (13.0-17.0) g/dL Hct 28.5 L (39.6-50.0) % MCV 79.6 L (80.0-97.0) fL RDW 15.3 H (11.5-14.5) % Plt Count 449 H (150-450) k/uL MPV 8.6 L (9.5-12.2) fL Neutrophils # (Manual) (1.3-7.7) k/uL Sodium 134 L (137-145) mmol/L Potassium 2.6 L* (3.5-5.1) mmol/L Chloride (98-107) mmol/L BUN/Creatinine Ratio 11.11 L (12.00-20.00) Ratio Glucose 114 H (74-99) mg/dL Plasma Lactic Acid Melchor 2.7 H* (0.7-2.0) mmol/L Calcium 6.8 L (8.4-10.2) mg/dL Albumin (3.5-5.0) g/dL
[2022-02-08] MEDS ORDERED: LEVOFLOXACIN 750MG-D5W PMX 750 MG in DEXTROSE/WATER 1 150ML.BAG IVPB SCH (16:00)
--- NOTE | 2022-02-08 16:02 | P.GSCN ---
History of Present Illness Consult date: 02/08/22 Reason for Consult: Colitis History of present illness: 61-year-old male presents to the ER with GI bleed and crampy abdominal pain. CAT scan shows colitis extending from the hepatic flexure to the rectum. No history of similar events. Last colonoscopy 4 years ago. Patient says he has had hemorrhoidal bleeding with a small area of soreness in the perianal region for the last week or 2. And over the last 2-3 days says he noticed mucousy stools with diarrhea and somewhat darker-colored blood. No history of known colitis. No recent travel. No recent antibiotics. C. diff is negative. Stool cultures are pending. Lactic acid has been slightly elevated. White blood cell count was elevated along with bandemia. White blood cell count today 12 from 18. Review of Systems The patient denies any acute changes in vision or hearing, no dysphagia or odynophagia, no chest pain or shortness of breath, no dysuria or hematuria, no headache, no runny nose, no melena, no unexplained weight loss Past Medical History Past Medical History: No Reported History History of Any Multi-Drug Resistant Organisms: None Reported Past Surgical History: Hernia Repair Additional Past Surgical History / Comment(s): Pt is unsure but thinks he may have had a colonoscopy many years ago. Past Anesthesia/Blood Transfusion Reactions: No Reported Reaction Past Psychological History: No Psychological Hx Reported Additional Psychological History / Comment(s): Pt resides with his significant other. He is independent. Smoking Status: Never smoker Past Alcohol Use History: Rare Past Drug Use History: None Reported - Past Family History Father Family Medical History: Cancer, Musculoskeletal Disorder, Neurologic Disorder Additional Family Medical History / Comment(s): Father had melanoma and parkinson's dx. He is . Mother Family Medical History: No Reported History Additional Family Medical History / Comment(s): Mother is healthy Medications and Allergies Home Medications Medication Instructions Recorded Confirmed Type Multivitamins, Thera [Multivitamin 1 tab PO DAILY 02/07/22 02/07/22 History (formulary)] Allergies Allergy/AdvReac Type Severity Reaction Status Date / Time No Known Allergies Allergy Verified 02/07/22 14:49 Surgical - Exam Vital Signs Temp Pulse Resp BP Pulse Ox 99.1 F 115 H 18 91/65 96 02/07/22 11:27 02/07/22 11:27 02/07/22 11:27 02/07/22 11:27 02/07/22 11:27 Physical exam: General: Well-developed, well-nourished HEENT: Normocephalic, sclerae nonicteric Abdomen: Mild left lower quadrant tenderness, nondistended Extremities: No edema Neuro: Alert and oriented Results - Labs 02/08/22 05:59 02/08/22 14:57 Abnormal Lab Results - Last 24 Hours (Table) 02/07/22 02/07/22 02/08/22 Range/Units 16:00 19:32 05:59 WBC 12.01 H (4.50-10.00) X 10*3/uL RBC 3.58 L (4.40-5.60) X 10*6/uL Hgb 10.0 L (13.0-17.0) g/dL Hct 28.5 L (39.6-50.0) % MCV 79.6 L (80.0-97.0) fL RDW 15.3 H (11.5-14.5) % Plt Count 449 H (140-440) X 10*3/uL Plt Count Comment INCREASED A MPV 8.6 L (9.5-12.2) fL Immature Gran # 0.15 H (0.00-0.04) X 10*3/uL Neutrophils # 9.32 H (1.80-7.70) X 10*3/uL Monocytes # 1.17 H (0.20-1.00) X 10*3/uL Sodium (135-145) mmol/L Potassium (3.5-5.5) mmol/L BUN/Creatinine Ratio (12.00-20.00) Ratio Glucose (70-110) mg/dL Plasma Lactic Acid Melchor 2.5 H* 2.7 H* (0.7-2.0) mmol/L Calcium (8.7-10.3) mg/dL 02/08/22 02/08/22 Range/Units 05:59 14:57 WBC (4.50-10.00) X 10*3/uL RBC (4.40-5.60) X 10*6/uL Hgb (13.0-17.0) g/dL Hct (39.6-50.0) % MCV (80.0-97.0) fL RDW (11.5-14.5) % Plt Count (140-440) X 10*3/uL Plt Count Comment MPV (9.5-12.2) fL Immature Gran # (0.00-0.04) X 10*3/uL Neutrophils # (1.80-7.70) X 10*3/uL Monocytes # (0.20-1.00) X 10*3/uL Sodium 134 L (135-145) mmol/L Potassium 2.6 L* 2.4 L* (3.5-5.5) mmol/L BUN/Creatinine Ratio 11.11 L (12.00-20.00) Ratio Glucose 114 H (70-110) mg/dL Plasma Lactic Acid Melchor (0.7-2.0) mmol/L Calcium 6.8 L (8.7-10.3) mg/dL Diabetes panel 02/08/22 02/08/22 Range/Units 05:59 14:57 Sodium 134 L (135-145) mmol/L Potassium 2.6 L* 2.4 L* (3.5-5.5) mmol/L Chloride 100 (96-109) mmol/L Carbon Dioxide 23.1 (20.0-27.5) mmol/L BUN 10.0 (9.0-27.0) mg/dL Creatinine 0.9 (0.6-1.5) mg/dL Glucose 114 H (70-110) mg/dL Calcium 6.8 L (8.7-10.3) mg/dL Calcium panel 02/08/22 Range/Units 05:59 Calcium 6.8 L (8.7-10.3) mg/dL Pituitary panel 02/08/22 02/08/22 Range/Units 05:59 14:57 Sodium 134 L (135-145) mmol/L Potassium 2.6 L* 2.4 L* (3.5-5.5) mmol/L Chloride 100 (96-109) mmol/L Carbon Dioxide 23.1 (20.0-27.5) mmol/L BUN 10.0 (9.0-27.0) mg/dL Creatinine 0.9 (0.6-1.5) mg/dL Glucose 114 H (70-110) mg/dL Calcium 6.8 L (8.7-10.3) mg/dL Adrenal panel 02/08/22 02/08/22 Range/Units 05:59 14:57 Sodium 134 L (135-145) mmol/L Potassium 2.6 L* 2.4 L* (3.5-5.5) mmol/L Chloride 100 (96-109) mmol/L Carbon Dioxide 23.1 (20.0-27.5) mmol/L BUN 10.0 (9.0-27.0) mg/dL Creatinine 0.9 (0.6-1.5) mg/dL Glucose 114 H (70-110) mg/dL Calcium 6.8 L (8.7-10.3) mg/dL Assessment and Plan (1) Acute colitis Narrative/Plan: 61-year-old male with diffuse colitis. CAT scan findings are not consistent with diverticulitis nor is the patient's history. Continue antibiotics. Await stool cultures. Patient will require colonoscopy possibly performed as outpatient. Continue clear liquids for now. Will follow. Current Visit: Yes Status: Acute Code(s): K52.9 - NONINFECTIVE GASTROENTERITIS AND COLITIS, UNSPECIFIED SNOMED Code(s): 84802349
[2022-02-08] MEDS: 0.9% NACL WITH KCL 20 MEQ/L 1,000 ML IV SCH ×2 (16:18→23:28)
--- NOTE | 2022-02-08 23:08 | P.CONS ---
History of Present Illness - Reason for Consult Consult date: 02/08/22 Colitis Requesting physician: Johnson Elaine - Chief Complaint Diarrhea 1 week - History of Present Illness Patient is a 61-year-old male with no significant past medical history presenting to the hospital with diarrhea and crampy abdominal pain in this patient symptom has been going on for about a week however has regular worse over the last 1 day patient apparently did have a chronic constipation and has been using high-fiber diet recently however no other change in his bowel habits or dietary habits patient denies having any fever or any chills however he did have a low-grade fever on presentation to the hospital and the patient did have a white count of 18.6 with a left shift kidney function was normal lactate was mildly elevated amylase and lipase were normal stool for occult blood was positive stool for C. difficile was negative patient did have a CT of abdominal pelvis Long segment wall thickening and inflammatory changes involving the sigmoid descending and transverse colon nonspecific colitis patient was started on Levaquin and Flagyl infectious disease was consulted for further management of antibiotic therapy Review of Systems Positive point has been mentioned in the HPI rest of the systems are negative Past Medical History Past Medical History: No Reported History History of Any Multi-Drug Resistant Organisms: None Reported Past Surgical History: Hernia Repair Additional Past Surgical History / Comment(s): Pt is unsure but thinks he may have had a colonoscopy many years ago. Past Anesthesia/Blood Transfusion Reactions: No Reported Reaction Past Psychological History: No Psychological Hx Reported Additional Psychological History / Comment(s): Pt resides with his significant other. He is independent. Smoking Status: Never smoker Past Alcohol Use History: Rare Past Drug Use History: None Reported - Past Family History Father Family Medical History: Cancer, Musculoskeletal Disorder, Neurologic Disorder Additional Family Medical History / Comment(s): Father had melanoma and parkinson's dx. He is . Mother Family Medical History: No Reported History Additional Family Medical History / Comment(s): Mother is healthy Medications and Allergies Home Medications Medication Instructions Recorded Confirmed Type Multivitamins, Thera [Multivitamin 1 tab PO DAILY 02/07/22 02/07/22 History (formulary)] Allergies Allergy/AdvReac Type Severity Reaction Status Date / Time No Known Allergies Allergy Verified 02/07/22 14:49 Physical Exam Vitals: Vital Signs Temp Pulse Pulse Resp BP BP Pulse Ox 02/08/22 04:18 99.3 F 92 15 132/78 94 L 02/07/22 19:07 98.4 F 105 H 15 143/86 99 02/07/22 17:56 99.3 F 112 H 17 136/84 99 02/07/22 17:00 98 18 98/64 98 Intake and Output 02/07/22 02/08/22 02/08/22 22:59 06:59 14:59 Other: Voiding Method Toilet # Voids 1 Weight 90.718 kg GENERAL DESCRIPTION: Middle-aged male lying in bed, no distress. No tachypnea or accessory muscle of respiration use. HEENT: Shows Pallor , no scleral icterus. Oral mucous membrane is dry. No pharyngeal erythema or thrush NECK: Trachea central, no thyromegaly. LUNGS: Unlabored breathing. Clear to auscultation anteriorly. No wheeze or crackle. HEART: S1, S2, regular rate and rhythm. No loud murmur ABDOMEN: Soft, mildly abdominal distention and tenderness , no guarding or rigidity, no organomegaly EXTREMITIES: No edema of feet. SKIN: No rash, no masses palpable. NEUROLOGICAL: The patient is awake, alert, oriented x3, mood and affect normal. Results CBC & Chem 7: 02/08/22 05:59 02/08/22 14:57 Labs: Abnormal Lab Results - Last 24 Hours (Table) 02/07/22 02/07/22 02/07/22 Range/Units 13:08 13:08 16:00 WBC 18.6 H (3.8-10.6) k/uL RBC (4.40-5.60) X 10*6/uL Hgb (13.0-17.0) g/dL Hct (39.6-50.0) % MCV (80.0-97.0) fL RDW (11.5-14.5) % Plt Count 699 H (150-450) k/uL Plt Count Comment MPV (9.5-12.2) fL Immature Gran # (0.00-0.04) X 10*3/uL Neutrophils # (1.80-7.70) X 10*3/uL Neutrophils # (Manual) 15.60 H (1.3-7.7) k/uL Monocytes # (0.20-1.00) X 10*3/uL Sodium 134 L (137-145) mmol/L Potassium 2.7 L* (3.5-5.1) mmol/L Chloride 96 L (98-107) mmol/L BUN/Creatinine Ratio (12.00-20.00) Ratio Glucose 127 H (74-99) mg/dL Plasma Lactic Acid Melchor 2.5 H* (0.7-2.0) mmol/L Calcium 7.8 L (8.4-10.2) mg/dL Albumin 3.1 L (3.5-5.0) g/dL 02/07/22 02/08/22 02/08/22 Range/Units 19:32 05:59 05:59 WBC 12.01 H (3.8-10.6) k/uL RBC 3.58 L (4.40-5.60) X 10*6/uL Hgb 10.0 L (13.0-17.0) g/dL Hct 28.5 L (39.6-50.0) % MCV 79.6 L (80.0-97.0) fL RDW 15.3 H (11.5-14.5) % Plt Count 449 H (150-450) k/uL Plt Count Comment INCREASED A MPV 8.6 L (9.5-12.2) fL Immature Gran # 0.15 H (0.00-0.04) X 10*3/uL Neutrophils # 9.32 H (1.80-7.70) X 10*3/uL Neutrophils # (Manual) (1.3-7.7) k/uL Monocytes # 1.17 H (0.20-1.00) X 10*3/uL Sodium 134 L (137-145) mmol/L Potassium 2.6 L* (3.5-5.1) mmol/L Chloride (98-107) mmol/L BUN/Creatinine Ratio 11.11 L (12.00-20.00) Ratio Glucose 114 H (74-99) mg/dL Plasma Lactic Acid Melchor 2.7 H* (0.7-2.0) mmol/L Calcium 6.8 L (8.4-10.2) mg/dL Albumin (3.5-5.0) g/dL Assessment and Plan (1) Acute colitis Current Visit: Yes Status: Acute Code(s): K52.9 - NONINFECTIVE GASTROENTERITIS AND COLITIS, UNSPECIFIED SNOMED Code(s): 62563443 Plan: 1patient presented to hospital with diarrhea and crampy abdominal pain in this patient with a low-grade fever also have elevated white count with a CT abdominal pelvis suggestive of a long segment of colitis with a question of infectious versus noninfectious etiology patient did not have any recent antibiotic exposure and stool for C. difficile negative. 2we will check a stool culture. 3we will discontinue Levaquin start the patient on Rocephin continue with the Flagyl. 4avoid antimotility agents may need Questran if diarrhea persist. We will follow on clinical condition and cultures to further adjust medication if needed Thank you for this consultation will follow this patient along with you Time with Patient: Greater than 30
[2022-02-09] MEDS: HYDROmorphone 0.5 MG/0.5 ML SYRINGE IVP PRN ×6 (01:53→19:45)
[2022-02-09] MEDS: metroNIDAZOLE-NS PMX 500 MG in SALINE 1 100ML.BAG IVPB SCH ×4 (03:39→22:40)
[2022-02-09] MEDS: PANTOPRAZOLE 40 MG/10 ML VIAL IV SCH (08:41)
[2022-02-09 08:50] LABS: African American GFR (CKD) >90 (>60 ml/min/1.73 sqM); Anion Gap 7 mmol/L; Blood Urea Nitrogen 8 mg/dL (9-20); Calcium 6.6 mg/dL (8.4-10.2); Carbon Dioxide 23 mmol/L (22-30); Chloride 104 mmol/L (98-107); Glucose 99 mg/dL (74-99); Magnesium 1.8 mg/dL (1.6-2.3); Non-African American GFR(CKD) >90 (>60 ml/min/1.73 sqM); Potassium 3.4 mmol/L (3.5-5.1); Sodium 134 mmol/L (137-145)
[2022-02-09] MEDS ORDERED: POTASSIUM CHLORIDE ER 20 MEQ TAB.ER PO STA (10:14)
[2022-02-09] MEDS ORDERED: Magnesium Replacement Protocol 1 EACH MISC MISCELLANE PRN (10:14)
--- NOTE | 2022-02-09 10:17 | P.PN ---
Subjective Progress Note Date: 02/09/22 This is a 61-year-old male who was recently admitted with abdominal pain and bleeding per rectum with a history of hemorrhoids although CT was done showing a large segmental circumferential thickening with inflammatory changes involving the sigmoid, descending and transverse colon and is being closely monitored. Infectious disease and general surgery consulted and patient was maintained on Flagyl and Levaquin and is being transitioned to IV ceftriaxone along with Flagyl and IV hydration. Patient continues with elevated WBC of 12.01 and hemoglobin is stable at 10.0. Sodium is 134 and potassium critically low at 2.6 today. Will replace per protocol and will also add potassium to the IV. C. diff testing was negative. Patient being treated for colitis and is maintained on clear liquids. Patient reports he continues to have diarrhea and multiple episodes although less frequent today. Stool cultures also ordered and pending at this time. Recommend follow-up potassium level in the evening and we'll continue to replace. Patient is currently afebrile denies chest pain or shortness of breath. Patient denies nausea or vomiting and is tolerating the clear liquids. Patient reports anything he eats is passing through him within the next few hours. 02/09/2022 Patient is evaluated today resting in bed. He reports 2 episode of bright red rectal bleeding this morning with stool mixed in. He has some lower abdominal cramping today. He does have hemorrhoids. General surgery is following and recommending colonoscopy pending clinical course possibly outpatient. Patient is also being followed by infectious disease he continues on antibiotics in the form of IV ceftriaxone and IV metronidazole. Labs today showing sodium at 134, potassium 3.4, BUN 8, creatinine 0.85, calcium 6.6, magnesium 1.8. C.Dif is negative. He will receive electrolyte replacement. Blood pressure stable today 137/87. Review of systems: Constitutional: No reports of fatigue, fever, or chills Cardiovascular: No reports of chest pain or palpitations Respiratory: No reports of shortness of breath or cough GI: No reports of nausea, no reports of of vomiting, reports continued diarrhea and loose stools : No reports of dysuria or retention Neurovascular: No reports of generalized weakness All medications have been reviewed PHYSICAL EXAMINATION: GENERAL: The patient is alert and oriented x4, Well developed, well nourished. HEENT: Pupils are round and equally reacting to light. EOMI. no scleral icterus. No conjunctival pallor. Normocephalic, atraumatic. No pharyngeal erythema. No thyromegaly. CARDIOVASCULAR: S1 and S2 muffled PULMONARY: diminished breath sounds bilaterally with no wheezing or rhonchi noted. ABDOMEN: soft. Mildly tender on exam. obese. non-distended, normoactive bowel sounds. No palpable organomegaly. MUSCULOSKELETAL: No joint swelling or deformity. EXTREMITIES: No cyanosis, clubbing, or pedal edema. NEUROLOGICAL: Gross neurological examination did not reveal any focal deficits. SKIN: No rashes. Assessment: Abdominal pain with diarrhea, acute colitis Leukocytosis secondary to above Rectal bleeding secondary to hemorrhoids and continued diarrhea Hypokalemia from continued diarrhea Hypomagnesemia from continued diarrhea Hyponatremia from poor oral intake GI prophylaxis DVT prophylaxis Full code Plan: Continue clear liquid diet Continue IV ceftriaxone, IV metronidazole with infectious disease consultation Stool culture ordered and pending at this time Potassium has improved to 3.4 will continue IV fluids and also replace electrolytes today General surgery consulted Repeat labs in AM The impression and plan of care has been dictated by Melyssa Wood, Nurse Practitioner as directed. Dr. Clemencia MD I have performed a history and physical examination and medical decision making of this patient, discussed the same with the dictator, and agree with the dictators assessment and plan as written, documented as a scribe. Based on total visit time, I have performed more than 50% of this visit. Objective - Vital Signs Vital signs: Vital Signs Temp 98.0 F 02/09/22 05:00 Pulse 92 02/09/22 05:00 Resp 20 02/09/22 05:00 BP 137/87 02/09/22 05:00 Pulse Ox 95 02/09/22 05:00 FiO2 Intake & Output 02/08/22 02/09/22 02/09/22 18:59 06:59 18:59 Intake Total 1560 Balance 1560 Intake: Intake, IV Titration 1560 Amount Sodium Chloride 0.9% 1, 1560 000 ml @ 130 mls/hr IV . Q7H42M [facility] Rx#:[id number] Other: Voiding Method Toilet # Voids 2 2 1 # Bowel Movements 2 - Labs CBC & Chem 7: 02/08/22 05:59 02/09/22 07:03 Labs: Abnormal Lab Results - Last 24 Hours (Table) 09/07/3102/08/22 02/08/22 Range/Units 05:59 14:57 23:08 Plt Count Comment INCREASED A Immature Gran # 0.15 H (0.00-0.04) X 10*3/uL Neutrophils # 9.32 H (1.80-7.70) X 10*3/uL Monocytes # 1.17 H (0.20-1.00) X 10*3/uL Sodium (137-145) mmol/L Potassium 2.4 L* 3.2 L (3.5-5.1) mmol/L BUN (9-20) mg/dL Calcium (8.4-10.2) mg/dL 02/09/22 Range/Units 07:03 Plt Count Comment Immature Gran # (0.00-0.04) X 10*3/uL Neutrophils # (1.80-7.70) X 10*3/uL Monocytes # (0.20-1.00) X 10*3/uL Sodium 134 L (137-145) mmol/L Potassium 3.4 L (3.5-5.1) mmol/L BUN 8 L (9-20) mg/dL Calcium 6.6 L (8.4-10.2) mg/dL Microbiology - Last 24 Hours (Table) 02/08/22 13:35 Stool Culture - Preliminary Stool 02/07/22 16:22 Blood Culture - Preliminary Blood No Growth after 24 hours 02/07/22 16:00 Blood Culture - Preliminary Blood No Growth after 24 hours Assessment and Plan Time with Patient: Less than 30
[2022-02-09] MEDS: 0.9% NACL WITH KCL 20 MEQ/L 1,000 ML IV SCH ×3 (11:07→18:13)
[2022-02-09] MEDS: MAGNESIUM SULFATE-D5W PMX 1 GM in DEXTROSE/WATER 1 100ML.BAG IVPB SCH ×2 (11:11→12:42)
[2022-02-09] MEDS ORDERED: POTASSIUM CHLORIDE ER 20 MEQ TAB.ER PO ONE (11:30)
--- NOTE | 2022-02-09 11:42 | P.PN ---
Subjective Progress Note Date: 02/09/22 Principal diagnosis: Colitis Patient had some loose bloody stools overnight. Mild crampy pain at times. Morning labs are pending at this time. Cultures are negative thus far. He is afebrile. Vitals are stable. Objective - Vital Signs Vital signs: Vital Signs Temp 98.0 F 02/09/22 05:00 Pulse 92 02/09/22 05:00 Resp 20 02/09/22 05:00 BP 137/87 02/09/22 05:00 Pulse Ox 95 02/09/22 05:00 FiO2 Intake & Output 02/08/22 02/09/22 02/09/22 18:59 06:59 18:59 Intake Total 1560 Balance 1560 Intake: Intake, IV Titration 1560 Amount Sodium Chloride 0.9% 1, 1560 000 ml @ 130 mls/hr IV . Q7H42M [facility] Rx#:[id number] Other: Voiding Method Toilet # Voids 2 2 1 # Bowel Movements 2 - Exam Abdomen: Soft, nondistended, mild tenderness - Labs CBC & Chem 7: 02/08/22 05:59 02/09/22 07:03 Labs: Abnormal Lab Results - Last 24 Hours (Table) 02/08/22 02/08/22 02/09/22 Range/Units 14:57 23:08 07:03 Sodium 134 L (137-145) mmol/L Potassium 2.4 L* 3.2 L 3.4 L (3.5-5.1) mmol/L BUN 8 L (9-20) mg/dL Calcium 6.6 L (8.4-10.2) mg/dL Microbiology - Last 24 Hours (Table) 02/08/22 13:35 Stool Culture - Preliminary Stool 02/07/22 16:22 Blood Culture - Preliminary Blood No Growth after 24 hours 02/07/22 16:00 Blood Culture - Preliminary Blood No Growth after 24 hours Assessment and Plan (1) Acute colitis Narrative/Plan: Patient is seems to be doing about the same. Continue clear liquid diet. Follow stool cultures. Continue antibiotics. Check morning labs. Current Visit: Yes Status: Acute Code(s): K52.9 - NONINFECTIVE GASTROENTERITIS AND COLITIS, UNSPECIFIED SNOMED Code(s): 48076589
[2022-02-09 11:45] LABS: HCT 29.4 % (39.6-50.0); HGB 9.7 g/dL (13.0-17.0); MCH 27.4 pg (27.0-32.0); MCV 83.1 fL (80.0-97.0); Mean Platelet Volume 8.5 fL (9.5-12.2); NRBC Per 100 WBC 0 /100 WBCS (0.0-0.0); Platelet Count 462 X 10*3/uL (140-440); RBC 3.54 X 10*6/uL (4.40-5.60); WBC 13.54 X 10*3/uL (4.50-10.00)
[2022-02-09 12:18] LABS: Acanthocytes 2+; Basophils % (A) 0.7 %; Eosinophils # (A) 0.12 X 10*3/uL (0.04-0.35); Eosinophils % (A) 0.9 %; Lymphocytes # (A) 1.06 X 10*3/uL (0.90-5.00); Lymphocytes % (A) 7.8 %; Monocytes # (A) 0.98 X 10*3/uL (0.20-1.00); Monocytes % (A) 7.2 %; Neutrophils # (A) 11.14 X 10*3/uL (1.80-7.70); Neutrophils % (A) 82.4 %; Rouleaux PRESENT
[2022-02-09] MEDS: HYDROmorphone 1 MG/ML 1 ML SYRINGE IVP PRN (22:41)
[2022-02-10] MEDS: HYDROmorphone 1 MG/ML 1 ML SYRINGE IVP PRN ×7 (01:47→23:38)
[2022-02-10] MEDS: 0.9% NACL WITH KCL 20 MEQ/L 1,000 ML IV SCH ×3 (01:58→20:36)
[2022-02-10] MEDS: metroNIDAZOLE-NS PMX 500 MG in SALINE 1 100ML.BAG IVPB SCH ×4 (03:56→21:42)
[2022-02-10] MEDS: PANTOPRAZOLE 40 MG/10 ML VIAL IV SCH (08:59)
[2022-02-10 09:18] LABS: HCT 27.9 % (39.6-50.0); HGB 9.2 g/dL (13.0-17.0); MCH 27.7 pg (27.0-32.0); Mean Platelet Volume 8.8 fL (9.5-12.2); NRBC Per 100 WBC 0 /100 WBCS (0.0-0.0); Platelet Count 461 X 10*3/uL (140-440); RBC 3.32 X 10*6/uL (4.40-5.60); RDW 16.7 % (11.5-14.5); WBC 11.27 X 10*3/uL (4.50-10.00)
--- NOTE | 2022-02-10 09:58 | P.PN ---
Subjective Progress Note Date: 02/10/22 Principal diagnosis: Colitis Patient heals somewhat better today. Less abdominal cramps. Has had 5 bowel movements since yesterday that were slightly bloody-appearing. Hemoglobin is stable at 9.2 and white blood cell count is improved 11.2. Mild tachycardia earlier this morning. No fevers. Objective - Vital Signs Vital signs: Vital Signs Temp 98.5 F 02/10/22 04:30 Pulse 107 H 02/10/22 04:30 Resp 20 02/10/22 04:30 BP 134/82 02/10/22 04:30 Pulse Ox 95 02/10/22 04:30 FiO2 Intake & Output 02/09/22 02/10/22 02/10/22 18:59 06:59 18:59 Intake Total 1560 Balance 1560 Intake: Intake, IV Titration 1560 Amount 0.9% NaCl with KCl 20 Meq 1560 /l 1,000 ml @ 130 mls/hr IV .Q7H42M ON LICENSE OF [facility] Rx#: [id number] Other: Voiding Method Toilet Toilet # Voids 2 2 - Exam Abdomen: Soft, nondistended, mild tenderness - Labs CBC & Chem 7: 02/10/22 05:32 02/09/22 07:03 Labs: Abnormal Lab Results - Last 24 Hours (Table) 02/09/22 02/10/22 Range/Units 07:03 05:32 WBC 13.54 H 11.27 H (4.50-10.00) X 10*3/uL RBC 3.54 L 3.32 L (4.40-5.60) X 10*6/uL Hgb 9.7 L 9.2 L (13.0-17.0) g/dL Hct 29.4 L 27.9 L (39.6-50.0) % RDW 16.0 H 16.7 H (11.5-14.5) % Plt Count 462 H 461 H (140-440) X 10*3/uL Plt Count Comment INCREASED A MPV 8.5 L 8.8 L (9.5-12.2) fL Immature Gran # 0.14 H (0.00-0.04) X 10*3/uL Neutrophils # 11.14 H (1.80-7.70) X 10*3/uL Microbiology - Last 24 Hours (Table) 02/07/22 16:00 Blood Culture - Preliminary Blood No Growth after 48 hours 02/07/22 16:22 Blood Culture - Preliminary Blood No Growth after 48 hours Assessment and Plan (1) Acute colitis Narrative/Plan: Overall patient slowly improving. Continue antibiotics. Follow stool cultures which are still negative. If symptoms do not improve Will plan colonoscopy. Current Visit: Yes Status: Acute Code(s): K52.9 - NONINFECTIVE GASTROENTERITIS AND COLITIS, UNSPECIFIED SNOMED Code(s): 64617486
[2022-02-10 10:54] LABS: Basophils # (M) 0 X 10*3/uL (0.00-0.10); Eosinophils # (M) 0.23 X 10*3/uL (0.04-0.35); Lymphocytes # (M) 1.01 X 10*3/uL (0.90-5.00); Metamyelocytes % 1 % (0-0); Monocytes # (M) 0.45 X 10*3/uL (0.20-1.00); Neutrophils # (M) 9.47 X 10*3/uL (2.00-8.90); Neutrophils % (M) 84 %
[2022-02-10 12:29] LABS: Magnesium 2.3 mg/dL (1.5-2.4)
[2022-02-10 13:14] LABS: African American GFR (CKD) 106.2 (60.0-200.0); Albumin/Globulin Ratio 0.83 (1.60-3.17); Anion Gap 7.6 mmol/L (10.00-18.00); BUN/Creat Ratio 8.64 Ratio (12.00-20.00); Blood Urea Nitrogen 7.8 mg/dL (9.0-27.0); Calcium 6.9 mg/dL (8.7-10.3); Carbon Dioxide 21.8 mmol/L (20.0-27.5); Globulin 2.4 g/dL (1.6-3.3); Non-African American GFR(CKD) 91.6 (60.0-200.0); Total Bilirubin 0.3 mg/dL (0.30-1.20); Total Protein 4.4 g/dL (6.2-8.2)
--- NOTE | 2022-02-10 21:19 | P.PN ---
Subjective Progress Note Date: 02/09/22 Principal diagnosis: Diarrhea/colitis Patient is a 61-year-old male presenting to the hospital with diarrhea and crampy abdominal pain symptoms have been going on for about a week before presentation hospital [facility] abdominal pannus with a long segment wall thickening and inflammatory changes concerning for colitis stool for C. diff was negative. On today's evaluation that is 02/09/2022, the patient denies having any fever or any chills patient is complaining of crampy abdominal pain and diarrhea and did have some blood stained stool no joaquina bleeding. Denies having any chest pain shortness of breath or cough Objective - Vital Signs Vital signs: Vital Signs Temp 98.3 F 02/09/22 11:54 Pulse 96 02/09/22 11:54 Resp 20 02/09/22 11:54 BP 125/80 02/09/22 11:54 Pulse Ox 95 02/09/22 11:54 FiO2 Intake & Output 02/08/22 02/09/22 02/09/22 18:59 06:59 18:59 Intake Total 1560 Balance 1560 Intake: Intake, IV Titration 1560 Amount Sodium Chloride 0.9% 1, 1560 000 ml @ 130 mls/hr IV . Q7H42M [facility] Rx#:[id number] Other: Voiding Method Toilet Toilet # Voids 2 2 1 # Bowel Movements 2 - Exam GENERAL DESCRIPTION: An elderly male lying in bed in no distress RESPIRATORY SYSTEM: Unlabored breathing , decreased breath sounds at bases HEART: S1 S2 regular rate and rhythm , ABDOMEN: Soft , mild distention and tenderness EXTREMITIES: No edema feet - Labs CBC & Chem 7: 02/10/22 05:32 02/10/22 05:32 Labs: Abnormal Lab Results - Last 24 Hours (Table) 02/08/22 02/08/22 02/09/22 Range/Units 14:57 23:08 07:03 WBC 13.54 H (4.50-10.00) X 10*3/uL RBC 3.54 L (4.40-5.60) X 10*6/uL Hgb 9.7 L (13.0-17.0) g/dL Hct 29.4 L (39.6-50.0) % RDW 16.0 H (11.5-14.5) % Plt Count 462 H (140-440) X 10*3/uL Plt Count Comment INCREASED A MPV 8.5 L (9.5-12.2) fL Immature Gran # 0.14 H (0.00-0.04) X 10*3/uL Neutrophils # 11.14 H (1.80-7.70) X 10*3/uL Sodium (137-145) mmol/L Potassium 2.4 L* 3.2 L (3.5-5.1) mmol/L BUN (9-20) mg/dL Calcium (8.4-10.2) mg/dL 02/09/22 Range/Units 07:03 WBC (4.50-10.00) X 10*3/uL RBC (4.40-5.60) X 10*6/uL Hgb (13.0-17.0) g/dL Hct (39.6-50.0) % RDW (11.5-14.5) % Plt Count (140-440) X 10*3/uL Plt Count Comment MPV (9.5-12.2) fL Immature Gran # (0.00-0.04) X 10*3/uL Neutrophils # (1.80-7.70) X 10*3/uL Sodium 134 L (137-145) mmol/L Potassium 3.4 L (3.5-5.1) mmol/L BUN 8 L (9-20) mg/dL Calcium 6.6 L (8.4-10.2) mg/dL Microbiology - Last 24 Hours (Table) 02/08/22 13:35 Stool Culture - Preliminary Stool 02/07/22 16:22 Blood Culture - Preliminary Blood No Growth after 24 hours 02/07/22 16:00 Blood Culture - Preliminary Blood No Growth after 24 hours Assessment and Plan (1) Acute colitis Current Visit: Yes Status: Acute Code(s): K52.9 - NONINFECTIVE GASTROENTERITIS AND COLITIS, UNSPECIFIED SNOMED Code(s): 35314246 Plan: 1patient presented to hospital with diarrhea and crampy abdominal pain in this patient with a low-grade fever also have elevated white count with a CT a bdominal pelvis suggestive of a long segment of colitis with a question of infectious versus noninfectious etiology patient did not have any recent antibiotic exposure and stool for C. difficile negative. 2 stool culture are currently pending. 3patient to continue with Rocephin and Flagyl. Time with Patient: Less than 30
--- NOTE | 2022-02-10 21:21 | P.PN ---
Subjective Progress Note Date: 02/10/22 Principal diagnosis: Diarrhea/colitis Patient is a 61-year-old male presenting to the hospital with diarrhea and crampy abdominal pain symptoms have been going on for about a week before presentation hospital cedar abdominal pannus with a long segment wall thickening and inflammatory changes concerning for colitis stool for C. diff was negative. On today's evaluation that is 02/10/2022, the patient remains to be afebrile, patient has been complaining of crampy abdominal pain and diarrhea which are blood stained and has about 5-6 episodes per day, patient denies having any nausea vomiting, the patient denies having any chest pain shortness of breath or cough Objective - Vital Signs Vital signs: Vital Signs Temp 98.6 F 02/10/22 11:22 Pulse 100 02/10/22 11:22 Resp 18 02/10/22 11:22 BP 118/76 02/10/22 11:22 Pulse Ox 94 L 02/10/22 11:22 FiO2 Intake & Output 02/09/22 02/10/22 02/10/22 18:59 06:59 18:59 Intake Total 1560 1710 Balance 1560 1710 Intake: Intake, IV Titration 1560 1710 Amount 0.9% NaCl with KCl 20 Meq 1560 1560 /l 1,000 ml @ 130 mls/hr IV .Q7H42M [facility] Rx#: [id number] cefTRIAXone 2 gm In 50 Sodium Chloride 0.9% 50 ml @ 100 mls/hr IVPB Q24HR [facility] Rx#:[id number] metroNIDAZOLE-NS PMX 500 100 mg In Saline 1 100ml.bag @ 100 mls/hr IVPB Q6H [facility] Rx#:[id number] Other: Voiding Method Toilet Toilet # Voids 2 2 - Exam GENERAL DESCRIPTION: An elderly male lying in bed in no distress RESPIRATORY SYSTEM: Unlabored breathing , decreased breath sounds at bases HEART: S1 S2 regular rate and rhythm , ABDOMEN: Soft , mild distention and tenderness EXTREMITIES: No edema feet - Labs CBC & Chem 7: 02/10/22 05:32 02/10/22 05:32 Labs: Abnormal Lab Results - Last 24 Hours (Table) 02/10/22 02/10/22 Range/Units 05:32 05:32 WBC 11.27 H (4.50-10.00) X 10*3/uL RBC 3.32 L (4.40-5.60) X 10*6/uL Hgb 9.2 L (13.0-17.0) g/dL Hct 27.9 L (39.6-50.0) % RDW 16.7 H (11.5-14.5) % Plt Count 461 H (140-440) X 10*3/uL Plt Count Comment INCREASED A MPV 8.8 L (9.5-12.2) fL Metamyelocytes % 1 H (0-0) % Neutrophils # (Manual) 9.47 H (2.00-8.90) X 10*3/uL Anion Gap 7.60 L (10.00-18.00) mmol/L BUN 7.8 L (9.0-27.0) mg/dL BUN/Creatinine Ratio 8.64 L (12.00-20.00) Ratio Glucose 113 H (70-110) mg/dL Calcium 6.9 L (8.7-10.3) mg/dL Total Protein 4.4 L (6.2-8.2) g/dL Albumin 2.0 L (3.8-4.9) g/dL Albumin/Globulin Ratio 0.83 L (1.60-3.17) g/dL Microbiology - Last 24 Hours (Table) 02/07/22 16:00 Blood Culture - Preliminary Blood No Growth after 48 hours 02/07/22 16:22 Blood Culture - Preliminary Blood No Growth after 48 hours Assessment and Plan (1) Acute colitis Current Visit: Yes Status: Acute Code(s): K52.9 - NONINFECTIVE GASTROENTERITIS AND COLITIS, UNSPECIFIED SNOMED Code(s): 66106120 Plan: 1patient presented to hospital with diarrhea and crampy abdominal pain in this patient with a low-grade fever also have elevated white count with a CT abdominal pelvis suggestive of a long segment of colitis with a question of infectious versus noninfectious etiology patient did not have any recent antibiotic exposure and stool for C. difficile negative. 2 stool culture are still pending as of 02/10/2022 3patient to continue with Rocephin and Flagyl , will add Questran for symptomatic relief and may benefit from colonoscopy will discuss with the surgery. Time with Patient: Less than 30
[2022-02-10] MEDS: CHOLESTYRAMINE (WITH SUGAR) 4 GM PACKET PO SCH (21:42)
--- NOTE | 2022-02-10 22:45 | P.PN ---
Subjective Progress Note Date: 02/10/22 This is a 61-year-old male who was recently admitted with abdominal pain and bleeding per rectum with a history of hemorrhoids although CT was done showing a large segmental circumferential thickening with inflammatory changes involving the sigmoid, descending and transverse colon and is being closely monitored. Infectious disease and general surgery consulted and patient was maintained on Flagyl and Levaquin and is being transitioned to IV ceftriaxone along with Flagyl and IV hydration. Patient continues with elevated WBC of 12.01 and hemoglobin is stable at 10.0. Sodium is 134 and potassium critically low at 2.6 today. Will replace per protocol and will also add potassium to the IV. C. diff testing was negative. Patient being treated for colitis and is maintained on clear liquids. Patient reports he continues to have diarrhea and multiple episodes although less frequent today. Stool cultures also ordered and pending at this time. Recommend follow-up potassium level in the evening and we'll continue to replace. Patient is currently afebrile denies chest pain or shortness of breath. Patient denies nausea or vomiting and is tolerating the clear liquids. Patient reports anything he eats is passing through him within the next few hours. 02/09/2022 Patient is evaluated today resting in bed. He reports 2 episode of bright red rectal bleeding this morning with stool mixed in. He has some lower abdominal cramping today. He does have hemorrhoids. General surgery is following and recommending colonoscopy pending clinical course possibly outpatient. Patient is also being followed by infectious disease he continues on antibiotics in the form of IV ceftriaxone and IV metronidazole. Labs today showing sodium at 134, potassium 3.4, BUN 8, creatinine 0.85, calcium 6.6, magnesium 1.8. C.Dif is negative. He will receive electrolyte replacement. Blood pressure stable today 137/87. 02/10/2022 Patient is resting in bed today. He reports being up to the bathroom every 2 hours last night, mainly he did not want to have any stool incontinence. He remains on clear liquid diet, and IV hydration with normal saline/20 meq potassium at 130 mls per hour. He reports mostly clear stool mixed with bright red blood. He denies abdominal pain but does have some cramping prior to having a BM. Continues on IV ceftriaxone and also IV metronidazole. Blood culture remains negative, stool culture is currently pending. White count today 11.27, hgb 9.2. Labs have improved today sodium is 137, potassium 4.0, magnesium 2.3, calcium 6.9 corrected to 8.5. Afebrile, mild tachycardia low 100s, blood pressurue 118/79. General surgery and infectious disease are following. Possible colonoscopy pending clinical course. Review of systems: Constitutional: No reports of fatigue, fever, or chills Cardiovascular: No reports of chest pain or palpitations Respiratory: No reports of shortness of breath or cough GI: No reports of nausea, no reports of of vomiting, reports continued diarrhea and loose stools/bloody looking : No reports of dysuria or retention Neurovascular: No reports of generalized weakness All medications have been reviewed PHYSICAL EXAMINATION: GENERAL: The patient is alert and oriented x4, Well developed, well nourished. HEENT: Pupils are round and equally reacting to light. EOMI. no scleral icterus. No conjunctival pallor. Normocephalic, atraumatic. No pharyngeal erythema. No thyromegaly. CARDIOVASCULAR: S1 and S2 muffled PULMONARY: diminished breath sounds bilaterally with no wheezing or rhonchi noted. ABDOMEN: soft. Mildly tender on exam. obese. non-distended, normoactive bowel sounds. No palpable organomegaly. MUSCULOSKELETAL: No joint swelling or deformity. EXTREMITIES: No cyanosis, clubbing, or pedal edema. NEUROLOGICAL: Gross neurological examination did not reveal any focal deficits. SKIN: No rashes. Assessment: Abdominal pain with diarrhea, acute colitis Leukocytosis secondary to above Rectal bleeding secondary to hemorrhoids and continued diarrhea Rule out GI bleed Hypokalemia from continued diarrhea, improved Hypomagnesemia from continued diarrhea, improved Hyponatremia from poor oral intake, improved with IV fluids GI prophylaxis DVT prophylaxis Full code Plan: Continue clear liquid diet Continue IV ceftriaxone, IV metronidazole with infectious disease consultation Stool culture ordered and pending at this time Monitor electrolytes and continue with IV fluids General surgery consulted possible colonoscopy pending clinical course The impression and plan of care has been dictated by Melyssa Wood Nurse Practitioner as directed. Dr. Clemencia MD I have performed a history and physical examination and medical decision making of this patient, discussed the same with the dictator, and agree with the dictators assessment and plan as written, documented as a scribe. Based on total visit time, I have performed more than 50% of this visit. Objective - Vital Signs Vital signs: Vital Signs Temp 98.4 F 02/10/22 18:01 Pulse 108 H 02/10/22 18:01 Resp 18 02/10/22 18:01 BP 131/84 02/10/22 18:01 Pulse Ox 96 02/10/22 18:01 FiO2 Intake & Output 02/10/22 02/10/22 02/11/22 06:59 18:59 06:59 Intake Total 1560 1710 Balance 1560 1710 Intake: Intake, IV Titration 1560 1710 Amount 0.9% NaCl with KCl 20 Meq 1560 1560 /l 1,000 ml @ 130 mls/hr IV .Q7H42M [facility] Rx#: [id number] cefTRIAXone 2 gm In 50 Sodium Chloride 0.9% 50 ml @ 100 mls/hr IVPB Q24HR [facility] Rx#:[id number] metroNIDAZOLE-NS PMX 500 100 mg In Saline 1 100ml.bag @ 100 mls/hr IVPB Q6H [facility] Rx#:[id number] Other: Voiding Method Toilet Toilet # Voids 2 - Labs CBC & Chem 7: 02/10/22 05:32 02/10/22 05:32 Labs: Abnormal Lab Results - Last 24 Hours (Table) 02/10/22 02/10/22 Range/Units 05:32 05:32 WBC 11.27 H (4.50-10.00) X 10*3/uL RBC 3.32 L (4.40-5.60) X 10*6/uL Hgb 9.2 L (13.0-17.0) g/dL Hct 27.9 L (39.6-50.0) % RDW 16.7 H (11.5-14.5) % Plt Count 461 H (140-440) X 10*3/uL Plt Count Comment INCREASED A MPV 8.8 L (9.5-12.2) fL Metamyelocytes % 1 H (0-0) % Neutrophils # (Manual) 9.47 H (2.00-8.90) X 10*3/uL Anion Gap 7.60 L (10.00-18.00) mmol/L BUN 7.8 L (9.0-27.0) mg/dL BUN/Creatinine Ratio 8.64 L (12.00-20.00) Ratio Glucose 113 H (70-110) mg/dL Calcium 6.9 L (8.7-10.3) mg/dL Total Protein 4.4 L (6.2-8.2) g/dL Albumin 2.0 L (3.8-4.9) g/dL Albumin/Globulin Ratio 0.83 L (1.60-3.17) g/dL Microbiology - Last 24 Hours (Table) 02/07/22 16:22 Blood Culture - Preliminary Blood No Growth after 72 hours 02/07/22 16:00 Blood Culture - Preliminary Blood No Growth after 72 hours Assessment and Plan Time with Patient: Less than 30
[2022-02-11] MEDS: HYDROmorphone 1 MG/ML 1 ML SYRINGE IVP PRN ×7 (02:25→23:13)
[2022-02-11] MEDS: metroNIDAZOLE-NS PMX 500 MG in SALINE 1 100ML.BAG IVPB SCH ×4 (04:03→21:41)
[2022-02-11] MEDS: 0.9% NACL WITH KCL 20 MEQ/L 1,000 ML IV SCH ×2 (04:04→10:19)
[2022-02-11] MEDS ORDERED: PEG 3350 (236 GM/BTL) + LYTES 4,000 ML BOTTLE PO ONE (10:18)
[2022-02-11] MEDS: CHOLESTYRAMINE (WITH SUGAR) 4 GM PACKET PO SCH ×2 (10:19→20:05)
[2022-02-11] MEDS: PANTOPRAZOLE 40 MG/10 ML VIAL IV SCH (10:19)
--- NOTE | 2022-02-11 10:20 | P.PN ---
Subjective Progress Note Date: 02/11/22 Principal diagnosis: Colitis Patient was mildly tachycardic last night. Still having some bloody stools. Abdominal cramps and better. Hemoglobin 9.2. Cultures are negative still thus far. Objective - Vital Signs Vital signs: Vital Signs Temp 98.5 F 02/11/22 04:49 Pulse 101 H 02/11/22 04:49 Resp 18 02/11/22 04:49 BP 121/82 02/11/22 04:49 Pulse Ox 92 L 02/11/22 04:49 FiO2 Intake & Output 02/10/22 02/11/22 02/11/22 18:59 06:59 18:59 Intake Total 1710 1560 Balance 1710 1560 Intake: Intake, IV Titration 1710 1560 Amount 0.9% NaCl with KCl 20 Meq 1560 1560 /l 1,000 ml @ 130 mls/hr IV .Q7H42M [facility] Rx#: [id number] cefTRIAXone 2 gm In 50 Sodium Chloride 0.9% 50 ml @ 100 mls/hr IVPB Q24HR [facility] Rx#:[id number] metroNIDAZOLE-NS PMX 500 100 mg In Saline 1 100ml.bag @ 100 mls/hr IVPB Q6H [facility] Rx#:[id number] Other: Voiding Method Toilet - Exam Abdomen: Soft, mild distention, mild diffuse tenderness - Labs CBC & Chem 7: 02/10/22 05:32 02/10/22 05:32 Labs: Abnormal Lab Results - Last 24 Hours (Table) 02/10/22 02/10/22 Range/Units 05:32 05:32 Plt Count Comment INCREASED A Metamyelocytes % 1 H (0-0) % Neutrophils # (Manual) 9.47 H (2.00-8.90) X 10*3/uL Anion Gap 7.60 L (10.00-18.00) mmol/L BUN 7.8 L (9.0-27.0) mg/dL BUN/Creatinine Ratio 8.64 L (12.00-20.00) Ratio Glucose 113 H (70-110) mg/dL Calcium 6.9 L (8.7-10.3) mg/dL Total Protein 4.4 L (6.2-8.2) g/dL Albumin 2.0 L (3.8-4.9) g/dL Albumin/Globulin Ratio 0.83 L (1.60-3.17) g/dL Microbiology - Last 24 Hours (Table) 02/08/22 13:35 Stool Culture - Preliminary Stool 02/07/22 16:22 Blood Culture - Preliminary Blood No Growth after 72 hours 02/07/22 16:00 Blood Culture - Preliminary Blood No Growth after 72 hours Assessment and Plan (1) Acute colitis Narrative/Plan: Patient slowly improving. Still having bloody stools. Given the persistent bleeding Will proceed with colonoscopy to obtain biopsies tomorrow. Patient is agreeable. Continue antibiotics. Current Visit: Yes Status: Acute Code(s): K52.9 - NONINFECTIVE GASTR OENTERITIS AND COLITIS, UNSPECIFIED SNOMED Code(s): 50854773
--- NOTE | 2022-02-11 10:56 | XR ---
EXAMINATION TYPE: XR chest 2V DATE OF EXAM: 02/11/2022 10:00 AM COMPARISON: KUB 02/07/2022 TECHNIQUE: XR chest 2V Frontal and lateral views of the chest. CLINICAL INDICATION:Male, 61 years old with history of hypoxia; FINDINGS: Lungs/Pleura: No pneumothorax. Left lower lobe patchy airspace opacities. Possible small left pleural effusion. Pulmonary vascularity: Unremarkable. Heart/mediastinum: Cardiomediastinal silhouette is unremarkable. Musculoskeletal: No acute osseous pathology. IMPRESSION: 1. Left lower lobe patchy airspace opacities which may represent atelectasis versus pneumonia. 2. Possible small left pleural effusion.
[2022-02-11] MEDS: AMPICILLIN-SULBACTAM 3 GM in SODIUM CHLORIDE 0.9% 100 ML IVPB SCH ×3 (12:46→23:13)
--- NOTE | 2022-02-11 14:38 | P.PN ---
Subjective Progress Note Date: 02/11/22 This is a 61-year-old male who was recently admitted with abdominal pain and bleeding per rectum with a history of hemorrhoids although CT was done showing a large segmental circumferential thickening with inflammatory changes involving the sigmoid, descending and transverse colon and is being closely monitored. Infectious disease and general surgery consulted and patient was maintained on Flagyl and Levaquin and is being transitioned to IV ceftriaxone along with Flagyl and IV hydration. Patient continues with elevated WBC of 12.01 and hemoglobin is stable at 10.0. Sodium is 134 and potassium critically low at 2.6 today. Will replace per protocol and will also add potassium to the IV. C. diff testing was negative. Patient being treated for colitis and is maintained on clear liquids. Patient reports he continues to have diarrhea and multiple episodes although less frequent today. Stool cultures also ordered and pending at this time. Recommend follow-up potassium level in the evening and we'll continue to replace. Patient is currently afebrile denies chest pain or shortness of breath. Patient denies nausea or vomiting and is tolerating the clear liquids. Patient reports anything he eats is passing through him within the next few hours. 02/09/2022 Patient is evaluated today resting in bed. He reports 2 episode of bright red rectal bleeding this morning with stool mixed in. He has some lower abdominal cramping today. He does have hemorrhoids. General surgery is following and recommending colonoscopy pending clinical course possibly outpatient. Patient is also being followed by infectious disease he continues on antibiotics in the form of IV ceftriaxone and IV metronidazole. Labs today showing sodium at 134, potassium 3.4, BUN 8, creatinine 0.85, calcium 6.6, magnesium 1.8. C.Dif is negative. He will receive electrolyte replacement. Blood pressure stable today 137/87. 02/10/2022 Patient is resting in bed today. He reports being up to the bathroom every 2 hours last night, mainly he did not want to have any stool incontinence. He remains on clear liquid diet, and IV hydration with normal saline/20 meq potassium at 130 mls per hour. He reports mostly clear stool mixed with bright red blood. He denies abdominal pain but does have some cramping prior to having a BM. Continues on IV ceftriaxone and also IV metronidazole. Blood culture remains negative, stool culture is currently pending. White count today 11.27, hgb 9.2. Labs have improved today sodium is 137, potassium 4.0, magnesium 2.3, calcium 6.9 corrected to 8.5. Afebrile, mild tachycardia low 100s, blood pressurue 118/79. General surgery and infectious disease are following. Possible colonoscopy pending clinical course. 02/11/2022 Patient is evaluated today resting in bed, he continues to report bloody bowel movements. He does state that they have slowed down some though. He continues on IV antibiotics with infectious disease following. General Surgery is planning for EGD tomorrow. Patient does have fluids running at 130 mls per hour, oxygen saturation today is 92% with chest xray showing left lower lobe patchy airspace opacities atelectasis versus pneumonia. Possible small left pleural effusion. Incentive spirometer at bedside and discussed with patient he needs to sit up and increase acitivity level. Review of systems: Constitutional: Reports fatigue, no fever, or chills Cardiovascular: No reports of chest pain or palpitations Respiratory: No reports of shortness of breath or cough GI: No reports of nausea, no reports of of vomiting, reports continued diarrhea and loose stools/bloody looking : No reports of dysuria or retention Neurovascular: Does have some generalized weakness All medications have been reviewed PHYSICAL EXAMINATION: GENERAL: The patient is alert and oriented x4, Well developed, well nourished. HEENT: Pupils are round and equally reacting to light. EOMI. no scleral icterus. No conjunctival pallor. Normocephalic, atraumatic. No pharyngeal erythema. No thyromegaly. CARDIOVASCULAR: S1 and S2 muffled PULMONARY: diminished breath sounds bilaterally with no wheezing or rhonchi noted. ABDOMEN: soft. Mildly tender on exam. obese. non-distended, normoactive bowel sounds. No palpable organomegaly. MUSCULOSKELETAL: No joint swelling or deformity. EXTREMITIES: No cyanosis, clubbing, or pedal edema. NEUROLOGICAL: Gross neurological examination did not reveal any focal deficits. SKIN: No rashes. Assessment: Abdominal pain with diarrhea, acute colitis Leukocytosis secondary to above Rectal bleeding secondary to hemorrhoids and continued diarrhea Rule out GI bleed Atelectasis patient is not moving much mostly bedrest Hypokalemia from continued diarrhea, improved Hypomagnesemia from continued diarrhea, improved Hyponatremia from poor oral intake, improved with IV fluids GI prophylaxis DVT prophylaxis Full code Plan: Continue clear liquid diet Prepping for EGD which planned for tomorrow Continue IV ceftriaxone, IV metronidazole with infectious disease consultation Stool culture ordered and pending at this time Monitor electrolytes and continue with IV fluids Encourage activity level and incentive spirometry General surgery consulted possible colonoscopy pending clinical course The impression and plan of care has been dictated by Melyssa Wood Nurse Practitioner as directed. Dr. Clemencia MD I have performed a history and physical examination and medical decision making of this patient, discussed the same with the dictator, and agree with the dictators assessment and plan as written, documented as a scribe. Based on total visit time, I have performed more than 50% of this visit. Objective - Vital Signs Vital signs: Vital Signs Temp 98.3 F 02/11/22 11:12 Pulse 104 H 02/11/22 11:12 Resp 18 02/11/22 11:12 BP 111/75 02/11/22 11:12 Pulse Ox 95 02/11/22 11:12 FiO2 Intake & Output 02/10/22 02/11/22 02/11/22 18:59 06:59 18:59 Intake Total 1710 1560 Balance 1710 1560 Intake: Intake, IV Titration 1710 1560 Amount 0.9% NaCl with KCl 20 Meq 1560 1560 /l 1,000 ml @ 130 mls/hr IV .Q7H42M [facility] Rx#: [id number] cefTRIAXone 2 gm In 50 Sodium Chloride 0.9% 50 ml @ 100 mls/hr IVPB Q24HR [facility] Rx#:[id number] metroNIDAZOLE-NS PMX 500 100 mg In Saline 1 100ml.bag @ 100 mls/hr IVPB Q6H [facility] Rx#:[id number] Other: Voiding Method Toilet - Labs CBC & Chem 7: 02/10/22 05:32 02/10/22 05:32 Labs: Microbiology - Last 24 Hours (Table) 02/08/22 13:35 Stool Culture - Preliminary Stool 02/07/22 16:22 Blood Culture - Preliminary Blood No Growth after 72 hours 02/07/22 16:00 Blood Culture - Preliminary Blood No Growth after 72 hours Assessment and Plan Time with Patient: Less than 30
[2022-02-11] MEDS: METOPROLOL TARTRATE 12.5 MG TAB PO SCH (18:32)
[2022-02-12] MEDS: HYDROmorphone 1 MG/ML 1 ML SYRINGE IVP PRN ×5 (02:17→20:50)
[2022-02-12] MEDS: metroNIDAZOLE-NS PMX 500 MG in SALINE 1 100ML.BAG IVPB SCH ×4 (04:01→20:46)
[2022-02-12] MEDS: AMPICILLIN-SULBACTAM 3 GM in SODIUM CHLORIDE 0.9% 100 ML IVPB SCH ×4 (05:22→23:52)
[2022-02-12] MEDS: PANTOPRAZOLE 40 MG/10 ML VIAL IV SCH (07:34)
[2022-02-12] MEDS: METOPROLOL TARTRATE 12.5 MG TAB PO SCH (07:34)
[2022-02-12] MEDS ORDERED: PROPOFOL 10 MG/ML 20 ML VIAL IV ONE (08:49)
[2022-02-12] MEDS ORDERED: IV FLUID CONTINUATION 1,000 ML IV ONE ×2 (08:54)
--- NOTE | 2022-02-12 09:26 | P.PCN ---
Date of Procedure: 02/12/22 Procedure(s) Performed: PREOPERATIVE DIAGNOSIS: Colitis POSTOPERATIVE DIAGNOSIS: Colitis PROCEDURE: Colonoscopy with random colonic biopsy ANESTHESIA: MAC SURGEON: Zechariah Cardozo M.D. SPECIMENS: Colitis ENDOSCOPIC PROCEDURE: The patient was placed on the endoscopy table in the left decubitus position. The Olympus colonoscope was inserted into the anus and passed under direct visualization to the distal aspect of the transverse colon. The patient had tortuosity limiting the passage of the scope more proximal. From the anus all the way to the midtransverse colon there was fairly impressive changes consistent with colitis. There was erosions, ulcerations, small amount of fresh bleeding, and some areas had a somewhat ischemic appearance. Random biopsies of the colon took place. No definite diverticulosis is noted. Inflammatory changes were circumferential and there were no skip regions. The patient had evidence of internal and external hemorrhoids at the anus. These did not appear inflamed currently. The patient was taken to the recovery room in stable condition per anesthesia guidelines. RECOMMENDATIONS: Await biopsy results. Will begin IV steroids at this time. Continue antibiotics. Stool cultures noted this morning as being negative on final reporting.
[2022-02-12] MEDS: CHOLESTYRAMINE (WITH SUGAR) 4 GM PACKET PO SCH ×2 (10:22→20:44)
[2022-02-12] MEDS: methylPREDNISolone SOD SUCCI 125 MG/2 ML VIAL IV SCH ×3 (10:22→23:51)
[2022-02-12 11:13] LABS: African American GFR (CKD) 107.2 (60.0-200.0); Anion Gap 10.4 mmol/L (10.00-18.00); BUN/Creat Ratio 11.56 Ratio (12.00-20.00); Blood Urea Nitrogen 10.4 mg/dL (9.0-27.0); Calcium 6.9 mg/dL (8.7-10.3); Carbon Dioxide 20.6 mmol/L (20.0-27.5); Non-African American GFR(CKD) 92.5 (60.0-200.0); Potassium 3.7 mmol/L (3.5-5.5)
[2022-02-12 11:47] LABS: Acanthocytes 2+; Basophils # (A) 0.01 X 10*3/uL (0.00-0.10); Basophils % (A) 0.1 %; Eosinophils # (A) 0.07 X 10*3/uL (0.04-0.35); Eosinophils % (A) 0.5 %; HGB 7.7 g/dL (13.0-17.0); Lymphocytes # (A) 1.59 X 10*3/uL (0.90-5.00); Lymphocytes % (A) 10.9 %; MCH 27.4 pg (27.0-32.0); MCHC 32.1 g/dL (32.0-37.0); MCV 85.4 fL (80.0-97.0); Monocytes # (A) 0.81 X 10*3/uL (0.20-1.00); Monocytes % (A) 5.6 %; NRBC Per 100 WBC 0.3 /100 WBCS (0.0-0.0); Neutrophils # (A) 11.52 X 10*3/uL (1.80-7.70); Neutrophils % (A) 78.9 %; Platelet Count 481 X 10*3/uL (140-440); RBC 2.81 X 10*6/uL (4.40-5.60); RDW 17.3 % (11.5-14.5); WBC 14.59 X 10*3/uL (4.50-10.00)
[2022-02-12 12:47] VITALS: BMI 29.5
[2022-02-13] MEDS: metroNIDAZOLE-NS PMX 500 MG in SALINE 1 100ML.BAG IVPB SCH ×4 (03:43→22:46)
[2022-02-13] MEDS: HYDROmorphone 1 MG/ML 1 ML SYRINGE IVP PRN ×4 (03:44→15:41)
[2022-02-13] MEDS: AMPICILLIN-SULBACTAM 3 GM in SODIUM CHLORIDE 0.9% 100 ML IVPB SCH ×3 (05:33→18:10)
--- NOTE | 2022-02-13 06:39 | P.PN ---
Subjective Progress Note Date: 02/12/22 This is a 61-year-old male who was recently admitted with abdominal pain and bleeding per rectum with a history of hemorrhoids although CT was done showing a large segmental circumferential thickening with inflammatory changes involving the sigmoid, descending and transverse colon and is being closely monitored. Infectious disease and general surgery consulted and patient was maintained on Flagyl and Levaquin and is being transitioned to IV ceftriaxone along with Flagyl and IV hydration. Patient continues with elevated WBC of 12.01 and hemoglobin is stable at 10.0. Sodium is 134 and potassium critically low at 2.6 today. Will replace per protocol and will also add potassium to the IV. C. dif f testing was negative. Patient being treated for colitis and is maintained on clear liquids. Patient reports he continues to have diarrhea and multiple episodes although less frequent today. Stool cultures also ordered and pending at this time. Recommend follow-up potassium level in the evening and we'll continue to replace. Patient is currently afebrile denies chest pain or shortness of breath. Patient denies nausea or vomiting and is tolerating the clear liquids. Patient reports anything he eats is passing through him within the next few hours. 02/09/2022 Patient is evaluated today resting in bed. He reports 2 episode of bright red rectal bleeding this morning with stool mixed in. He has some lower abdominal cramping today. He does have hemorrhoids. General surgery is following and recommending colonoscopy pending clinical course possibly outpatient. Patient is also being followed by infectious disease he continues on antibiotics in the form of IV ceftriaxone and IV metronidazole. Labs today showing sodium at 134, potassium 3.4, BUN 8, creatinine 0.85, calcium 6.6, magnesium 1.8. C.Dif is negative. He will receive electrolyte replacement. Blood pressure stable today 137/87. 02/10/2022 Patient is resting in bed today. He reports being up to the bathroom every 2 hours last night, mainly he did not want to have any stool incontinence. He remains on clear liquid diet, and IV hydration with normal saline/20 meq potassium at 130 mls per hour. He reports mostly clear stool mixed with bright red blood. He denies abdominal pain but does have some cramping prior to having a BM. Continues on IV ceftriaxone and also IV metronidazole. Blood culture remains negative, stool culture is currently pending. White count today 11.27, hgb 9.2. Labs have improved today sodium is 137, potassium 4.0, magnesium 2.3, calcium 6.9 corrected to 8.5. Afebrile, mild tachycardia low 100s, blood pressurue 118/79. General surgery and infectious disease are following. Possible colonoscopy pending clinical course. 02/11/2022 Patient is evaluated today resting in bed, he continues to report bloody bowel movements. He does state that they have slowed down some though. He continues on IV antibiotics with infectious disease following. General Surgery is planning for EGD tomorrow. Patient does have fluids running at 130 mls per hour, oxygen saturation today is 92% with chest xray showing left lower lobe patchy airspace opacities atelectasis versus pneumonia. Possible small left pleural effusion. Incentive spirometer at bedside and discussed with patient he needs to sit up and increase acitivity level. Chest xray has been reviewed and felt there are vascular markings for possible fluid overload, would recommend discontinuing IV fluids for now and monitoring patient. If he becomes hypoxic consider IV lasix x1 dose. holding off lasix for now as patient is denying shortness of breath and clinically not in respiratory distress. His lungs are diminished. He is currently prepping for EGD. 02/12/2022 Patient is seen and evaluated in follow-up this morning and is scheduled for colonoscopy with Dr. Cardozo today. Patient completed the bowel prep and reports improvement in the rectal bleeding. Currently NPO. Hemoglobin is 7.7 and recommend repeat labs. Follow up on colonoscopy report. Continue abx for now. Patient is afebrile and denies chest pain or shortness of breath. BMP reviewed and within normal limits. Review of systems: Constitutional: No reports of fatigue, fever, or chills Cardiovascular: No reports of chest pain or palpitations Respiratory: No reports of shortness of breath or cough GI: No reports of nausea, no reports of of vomiting, reports improvement in the rectal bleeding since doing the colon prep : No reports of dysuria or retention Neurovascular: No reports of generalized weakness All medications have been reviewed PHYSICAL EXAMINATION: GENERAL: The patient is alert and oriented x4, Well developed, well nourished. HEENT: Pupils are round and equally reacting to light. EOMI. no scleral icterus. No conjunctival pallor. Normocephalic, atraumatic. No pharyngeal erythema. No thyromegaly. CARDIOVASCULAR: S1 and S2 muffled PULMONARY: diminished breath sounds bilaterally with no wheezing or rhonchi noted. ABDOMEN: soft. Mildly tender on exam. obese. non-distended, normoactive bowel sounds. No palpable organomegaly. MUSCULOSKELETAL: No joint swelling or deformity. EXTREMITIES: No cyanosis, clubbing, or pedal edema. NEUROLOGICAL: Gross neurological examination did not reveal any focal deficits. SKIN: No rashes. Assessment: Abdominal pain with diarrhea, acute colitis Leukocytosis secondary to above Rectal bleeding secondary to hemorrhoids and continued diarrhea Rule out GI bleed Atelectasis patient is not moving much mostly bedrest Hypokalemia from continued diarrhea, improved Hypomagnesemia from continued diarrhea, improved Hyponatremia from poor oral intake, improved with IV fluids GI prophylaxis DVT prophylaxis Full code Plan: Continue clear liquid diet, NPO now for colonoscopy today Continue IV ceftriaxone, IV metronidazole with infectious disease following Stool culture pending at this time Monitor electrolytes and continue with IV fluids Encourage activity level and incentive spirometry General surgery following and will undergo colonoscopy today and await report The impression and plan of care has been dictated by Razia Myrick, nurse practitioner as directed. Dr. Rolando MD I have performed a history and examination and MDM of this patient, discussed the same with the dictator, and agree with the dictator's assessment and plan as written ,documented as a scribe. Based on total visit time, I have performed more than 50% of the visit. Any additional findings or plans will be noted. Objective - Vital Signs Vital signs: Vital Signs Temp 98.6 F 02/12/22 12:08 Pulse 105 H 02/12/22 12:08 Resp 16 02/12/22 12:08 BP 124/83 02/12/22 12:08 Pulse Ox 93 L 02/12/22 12:08 FiO2 Intake & Output 02/11/22 02/12/22 02/12/22 18:59 06:59 18:59 Intake Total 1550 300 100 Balance 1550 300 100 Intake: IV 100 Intake, IV Titration 1550 300 Amount 0.9% NaCl with KCl 20 Meq 1300 /l 1,000 ml @ 130 mls/hr IV .Q7H42M [facility] Rx#: [id number] Ampicillin-Sulbactam 3 gm 100 In Sodium Chloride 0.9% 100 ml @ 200 mls/hr IVPB Q6HR [facility] Rx#:[id number] cefTRIAXone 2 gm In 50 Sodium Chloride 0.9% 50 ml @ 100 mls/hr IVPB Q24HR [facility] Rx#:[id number] metroNIDAZOLE-NS PMX 500 200 200 mg In Saline 1 100ml.bag @ 100 mls/hr IVPB Q6H [facility] Rx#:[id number] Other: Voiding Method Toilet # Voids 3 # Bowel Movements 3 - Labs CBC & Chem 7: 02/12/22 07:28 02/12/22 07:28 Labs: Abnormal Lab Results - Last 24 Hours (Table) 02/12/22 02/12/22 Range/Units 07:28 07:28 WBC 14.59 H (4.50-10.00) X 10*3/uL RBC 2.81 L (4.40-5.60) X 10*6/uL Hgb 7.7 L (13.0-17.0) g/dL Hct 24.0 L (39.6-50.0) % RDW 17.3 H (11.5-14.5) % Plt Count 481 H (140-440) X 10*3/uL Plt Count Comment INCREASED A MPV 9.0 L (9.5-12.2) fL Absolute Nucleated RBC 0.05 H (0.00-0.00) X 10*3/uL Immature Gran # 0.59 H (0.00-0.04) X 10*3/uL Neutrophils # 11.52 H (1.80-7.70) X 10*3/uL NRBC/100 WBC Diff 0.3 H (0.0-0.0) /100 WBCS BUN/Creatinine Ratio 11.56 L (12.00-20.00) Ratio Calcium 6.9 L (8.7-10.3) mg/dL Microbiology - Last 24 Hours (Table) 02/08/22 13:35 Stool Culture - Final Stool 02/07/22 16:22 Blood Culture - Preliminary Blood No Growth after 96 hours 02/07/22 16:00 Blood Culture - Preliminary Blood No Growth after 96 hours
[2022-02-13] MEDS: methylPREDNISolone SOD SUCCI 125 MG/2 ML VIAL IV SCH ×2 (09:28→15:41)
[2022-02-13] MEDS: PANTOPRAZOLE 40 MG/10 ML VIAL IV SCH (09:29)
[2022-02-13] MEDS: METOPROLOL TARTRATE 12.5 MG TAB PO SCH (09:30)
[2022-02-13 09:35] LABS: African American GFR (CKD) >90 (>60 ml/min/1.73 sqM); Anion Gap 10 mmol/L; Blood Urea Nitrogen 13 mg/dL (9-20); Carbon Dioxide 22 mmol/L (22-30); Chloride 103 mmol/L (98-107); Glucose 182 mg/dL (74-99); Non-African American GFR(CKD) >90 (>60 ml/min/1.73 sqM); Potassium 3.5 mmol/L (3.5-5.1); Sodium 135 mmol/L (137-145)
[2022-02-13 09:36] LABS: Anisocytosis Slight; HCT 26.8 % (39.0-53.0); HGB 8.5 gm/dL (13.0-17.5); Hypochromasia Slight; MCH 27.7 pg (25.0-35.0); MCHC 31.6 g/dL (31.0-37.0); MCV 87.7 fL (80.0-100.0); Mean Platelet Volume 7.2; Platelet Count 598 k/uL (150-450); Poikilocytosis Slight; RBC 3.05 m/uL (4.30-5.90); RDW 16.7 % (11.5-15.5)
[2022-02-13] MEDS: CHOLESTYRAMINE (WITH SUGAR) 4 GM PACKET PO SCH ×2 (09:48→22:09)
--- NOTE | 2022-02-13 14:02 | P.PN ---
Subjective Progress Note Date: 02/13/22 CHIEF COMPLAINT: Colitis HISTORY OF PRESENT ILLNESS: Patient is status post colonoscopy with biopsy carol bronson evidence of colitis. There were erosions, ulcerations and small amount of fresh bleeding and some areas were ischemic in appearance. Patient did have evidence of internal and external hemorrhoids of the anus. There were not inflamed. Patient was started on IV steroids and is continuing antibiotics. Patient had 3 bloody movements this morning. He is short of breath after walking from the bathroom. He is pale. He wrote reports that his abdominal pain is 5 out of 10. He was rating his pain about 6 out of 10 yesterday. Hemoglobin this morning was 8.5. He has had mild episodes of tachycardia. Currently on a full liquid diet. PHYSICAL EXAM: VITAL SIGNS: Reviewed. GENERAL: pale HEENT: No sclera icterus. Extraocular movements grossly intact. Moist buccal mucosa. Head is atraumatic, normocephalic. ABDOMEN: Soft. Mild distention. Mild diffuse tenderness. NEUROLOGIC: Alert and oriented. Cranial nerves II through XII grossly intact. ASSESSMENT: 1. Acute Colitis status post colonoscopy PLAN: -Repeat CBC this afternoon -Continue to monitor hemoglobin -Continue monitoring signs or symptoms of bleeding -Continue IV steroids -Continue antibiotics -Continue full liquid diet -Follow-up on biopsy result Physician Public Health Technician note has been reviewed by physician. Signing provider agrees with the documented findings, assessment, and plan of care. Objective - Vital Signs Vital signs: Vital Signs Temp 97.9 F 02/13/22 11:10 Pulse 97 02/13/22 11:10 Resp 18 02/13/22 11:10 BP 129/79 02/13/22 11:10 Pulse Ox 94 L 02/13/22 11:10 FiO2 Intake & Output 02/12/22 02/13/22 02/13/22 18:59 06:59 18:59 Intake Total 100 200 120 Balance 100 200 120 Weight 90.718 kg Intake: IV 100 Intake, IV Titration 200 Amount Ampicillin-Sulbactam 3 gm 200 In Sodium Chloride 0.9% 100 ml @ 200 mls/hr IVPB Q6HR [facility] Rx#:[id number] Oral 120 Other: Voiding Method Toilet # Bowel Movements 2 1 - Labs CBC & Chem 7: 02/13/22 08:28 02/13/22 08:28 Labs: Abnormal Lab Results - Last 24 Hours (Table) 02/13/22 02/13/22 Range/Units 08:28 08:28 WBC 15.3 H (3.8-10.6) k/uL RBC 3.05 L (4.30-5.90) m/uL Hgb 8.5 L D (13.0-17.5) gm/dL Hct 26.8 L (39.0-53.0) % RDW 16.7 H (11.5-15.5) % Plt Count 598 H (150-450) k/uL Sodium 135 L (137-145) mmol/L Glucose 182 H (74-99) mg/dL Calcium 7.0 L (8.4-10.2) mg/dL Microbiology - Last 24 Hours (Table) 02/07/22 16:00 Blood Culture - Preliminary Blood No Growth after 120 hours 02/07/22 16:22 Blood Culture - Preliminary Blood No Growth after 120 hours
[2022-02-13 14:41] LABS: Band Neutrophils % 3 %; Metamyelocytes # (M) 0.15 k/uL (0); Metamyelocytes % 1 %; Myelocytes % 2 %; Neutrophils % (M) 77 %; Nucleated Red Blood Cells 3 /100 WBC (0-0); Total Cells Counted 200
[2022-02-13 14:42] LABS: Lymphocytes # (M) 2.24 k/uL (1.0-4.8); WBC 14.9 k/uL (3.8-10.6)
[2022-02-13 14:43] LABS: Polychromasia Present
--- NOTE | 2022-02-13 16:22 | P.PN ---
Subjective Progress Note Date: 02/13/22 This is a 61-year-old male who was recently admitted with abdominal pain and bleeding per rectum with a history of hemorrhoids although CT was done showing a large segmental circumferential thickening with inflammatory changes involving the sigmoid, descending and transverse colon and is being closely monitored. Infectious disease and general surgery consulted and patient was maintained on Flagyl and Levaquin and is being transitioned to IV ceftriaxone along with Flagyl and IV hydration. Patient continues with elevated WBC of 12.01 and hemoglobin is stable at 10.0. Sodium is 134 and potassium critically low at 2.6 today. Will replace per protocol and will also add potassium to the IV. C. dif f testing was negative. Patient being treated for colitis and is maintained on clear liquids. Patient reports he continues to have diarrhea and multiple episodes although less frequent today. Stool cultures also ordered and pending at this time. Recommend follow-up potassium level in the evening and we'll continue to replace. Patient is currently afebrile denies chest pain or shortness of breath. Patient denies nausea or vomiting and is tolerating the clear liquids. Patient reports anything he eats is passing through him within the next few hours. 02/09/2022 Patient is evaluated today resting in bed. He reports 2 episode of bright red rectal bleeding this morning with stool mixed in. He has some lower abdominal cramping today. He does have hemorrhoids. General surgery is following and recommending colonoscopy pending clinical course possibly outpatient. Patient is also being followed by infectious disease he continues on antibiotics in the form of IV ceftriaxone and IV metronidazole. Labs today showing sodium at 134, potassium 3.4, BUN 8, creatinine 0.85, calcium 6.6, magnesium 1.8. C.Dif is negative. He will receive electrolyte replacement. Blood pressure stable today 137/87. 02/10/2022 Patient is resting in bed today. He reports being up to the bathroom every 2 hours last night, mainly he did not want to have any stool incontinence. He remains on clear liquid diet, and IV hydration with normal saline/20 meq potassium at 130 mls per hour. He reports mostly clear stool mixed with bright red blood. He denies abdominal pain but does have some cramping prior to having a BM. Continues on IV ceftriaxone and also IV metronidazole. Blood culture remains negative, stool culture is currently pending. White count today 11.27, hgb 9.2. Labs have improved today sodium is 137, potassium 4.0, magnesium 2.3, calcium 6.9 corrected to 8.5. Afebrile, mild tachycardia low 100s, blood pressurue 118/79. General surgery and infectious disease are following. Possible colonoscopy pending clinical course. 02/11/2022 Patient is evaluated today resting in bed, he continues to report bloody bowel movements. He does state that they have slowed down some though. He continues on IV antibiotics with infectious disease following. General Surgery is planning for EGD tomorrow. Patient does have fluids running at 130 mls per hour, oxygen saturation today is 92% with chest xray showing left lower lobe patchy airspace opacities atelectasis versus pneumonia. Possible small left pleural effusion. Incentive spirometer at bedside and discussed with patient he needs to sit up and increase acitivity level. Chest xray has been reviewed and felt there are vascular markings for possible fluid overload, would recommend discontinuing IV fluids for now and monitoring patient. If he becomes hypoxic consider IV lasix x1 dose. holding off lasix for now as patient is denying shortness of breath and clinically not in respiratory distress. His lungs are diminished. He is currently prepping for EGD. 02/12/2022 Patient is seen and evaluated in follow-up this morning and is scheduled for colonoscopy with Dr. Cardozo today. Patient completed the bowel prep and reports improvement in the rectal bleeding. Currently NPO. Hemoglobin is 7.7 and recommend repeat labs. Follow up on colonoscopy report. Continue abx for now. Patient is afebrile and denies chest pain or shortness of breath. BMP reviewed and within normal limits. 02/13/2022 Patient is seen in follow-up this morning having continued pain in his postop colonoscopy with general surgery following closely. Patient has been started on IV steroids and will continue. Per nursing staff patient had a bowel movement that was strictly blood and no stool. Hemoglobin is currently stable at 8.5. Patient reports increased abdominal pain and continues to receive IV Dilaudid. BMP reviewed potassium is stable at 3.5 with a sodium of 135. Creatinine is stable. Vital signs are stable and patient is afebrile. Patient is 94% on room air. Patient was started on full liquid diet and will continue and awaiting biopsy results and recommending continuing on antibiotics. Review of systems: Constitutional: No reports of fatigue, fever, or chills Cardiovascular: No reports of chest pain or palpitations Respiratory: No reports of shortness of breath or cough GI: No reports of nausea, no reports of of vomiting, reports bloody bowel movements : No reports of dysuria or retention Neurovascular: reports of generalized weakness and increased pain of the abdomen All medications have been reviewed PHYSICAL EXAMINATION: GENERAL: The patient is alert and oriented x4, Well developed, well nourished. HEENT: Pupils are round and equally reacting to light. EOMI. no scleral icterus. No conjunctival pallor. Normocephalic, atraumatic. No pharyngeal erythema. No thyromegaly. CARDIOVASCULAR: S1 and S2 muffled PULMONARY: diminished breath sounds bilaterally with no wheezing or rhonchi noted. ABDOMEN: soft. Mildly tender on exam. obese. non-distended, normoactive bowel sounds. No palpable organomegaly. MUSCULOSKELETAL: No joint swelling or deformity. EXTREMITIES: No cyanosis, clubbing, or pedal edema. NEUROLOGICAL: Gross neurological examination did not reveal any focal deficits. SKIN: No rashes. Assessment: Abdominal pain with diarrhea, acute colitis Leukocytosis secondary to above Rectal bleeding secondary to hemorrhoids and continued diarrhea Rule out GI bleed Atelectasis patient is not moving much mostly bedrest Hypokalemia from continued diarrhea, improved Hypomagnesemia from continued diarrhea, improved Hyponatremia from poor oral intake, improved with IV fluids GI prophylaxis DVT prophylaxis Full code Plan: Continue full liquid diet, post colonoscopy showing consistent with colitis with erosions and ulcerations and small amount of fresh bleeding and some areas that had a somewhat ischemic appearance with multiple biopsies taken no evidence of diverticulosis noted along with evidence of internal and external hemorrhoids as well. Patient is being started on high-dose IV steroids and will continue Continue IV ceftriaxone, IV metronidazole with infectious disease following Stool culture pending at this time Monitor electrolytes and continue with IV fluids, potassium is 3.5 today and will repeat labs with possible replacement as needed Encourage activity level and incentive spirometry General surgery following and recommending close monitoring of hemoglobin with CBC ordered for later today. Recommend to transfuse if hemoglobin is 7 or less. The impression and plan of care has been dictated by Razia Myrick, nurse practitioner as directed. Dr. Rolando MD I have performed a history and examination and MDM of this patient, discussed the same with the dictator, and agree with the dictator's assessment and plan as written ,documented as a scribe. Based on total visit time, I have performed more than 50% of the visit. Any additional findings or plans will be noted. Objective - Vital Signs Vital signs: Vital Signs Temp 97.9 F 02/13/22 11:10 Pulse 97 02/13/22 11:10 Resp 18 02/13/22 11:10 BP 129/79 02/13/22 11:10 Pulse Ox 94 L 02/13/22 11:10 FiO2 Intake & Output 02/12/22 02/13/22 02/13/22 18:59 06:59 18:59 Intake Total 100 200 240 Balance 100 200 240 Weight 90.718 kg Intake: IV 100 Intake, IV Titration 200 Amount Ampicillin-Sulbactam 3 gm 200 In Sodium Chloride 0.9% 100 ml @ 200 mls/hr IVPB Q6HR ANUSHKA Rx#:[id number] Oral 240 Other: Voiding Method Toilet # Bowel Movements 2 1 - Labs CBC & Chem 7: 02/13/22 08:28 02/13/22 08:28 Labs: Abnormal Lab Results - Last 24 Hours (Table) 02/13/22 02/13/22 Range/Units 08:28 08:28 WBC 14.9 H (3.8-10.6) k/uL RBC 3.05 L (4.30-5.90) m/uL Hgb 8.5 L D (13.0-17.5) gm/dL Hct 26.8 L (39.0-53.0) % RDW 16.7 H (11.5-15.5) % Plt Count 598 H (150-450) k/uL Neutrophils # (Manual) 11.90 H (1.3-7.7) k/uL Metamyelocytes # (Man) 0.15 H (0) k/uL Myelocytes # (Manual) 0.30 H (0) k/uL Nucleated RBCs 3 H (0-0) /100 WBC Sodium 135 L (137-145) mmol/L Glucose 182 H (74-99) mg/dL Calcium 7.0 L (8.4-10.2) mg/dL Microbiology - Last 24 Hours (Table) 02/07/22 16:00 Blood Culture - Preliminary Blood No Growth after 120 hours 02/07/22 16:22 Blood Culture - Preliminary Blood No Growth after 120 hours
[2022-02-13] MEDS: HYDROmorphone 0.5 MG/0.5 ML SYRINGE IVP PRN ×2 (18:41→22:09)
[2022-02-14] MEDS: methylPREDNISolone SOD SUCCI 125 MG/2 ML VIAL IV SCH ×4 (00:24→23:53)
[2022-02-14] MEDS: AMPICILLIN-SULBACTAM 3 GM in SODIUM CHLORIDE 0.9% 100 ML IVPB SCH ×5 (00:24→23:52)
[2022-02-14] MEDS: HYDROmorphone 1 MG/ML 1 ML SYRINGE IVP PRN ×6 (01:20→20:23)
[2022-02-14] MEDS: metroNIDAZOLE-NS PMX 500 MG in SALINE 1 100ML.BAG IVPB SCH ×4 (03:43→23:53)
[2022-02-14] MEDS: PANTOPRAZOLE 40 MG/10 ML VIAL IV SCH (08:45)
[2022-02-14] MEDS: METOPROLOL TARTRATE 12.5 MG TAB PO SCH (08:45)
[2022-02-14] MEDS: CHOLESTYRAMINE (WITH SUGAR) 4 GM PACKET PO SCH ×2 (10:18→22:07)
[2022-02-14 11:43] LABS: HCT 20.2 % (39.6-50.0); HGB 6.6 g/dL (13.0-17.0); MCH 28.1 pg (27.0-32.0); MCHC 32.7 g/dL (32.0-37.0); Mean Platelet Volume 9.2 fL (9.5-12.2); NRBC Per 100 WBC 0.5 /100 WBCS (0.0-0.0); Platelet Count 425 X 10*3/uL (140-440); RBC 2.35 X 10*6/uL (4.40-5.60); RDW 17.7 % (11.5-14.5); WBC 13.66 X 10*3/uL (4.50-10.00)
--- NOTE | 2022-02-14 13:24 | P.PN ---
Subjective Progress Note Date: 02/14/22 CHIEF COMPLAINT: Colitis HISTORY OF PRESENT ILLNESS: Patient is status post colonoscopy with biopsy. Bio psy results showing chronic active colitis with mucosal ulceration. Negative for dysplasia. Patient had 2 bloody bowel movements this morning. The movements are starting to have more stool present and less blood noted. No blood clots. He does report left lower and right lower abdominal pain. He denies any nausea or vomiting. Did rate his pain about 6 out of 10. Pain was about 4 out of 10 yesterday. He's had mild tachycardia. Afebrile. WBC is 13.66 hemoglobin has dropped from 8.5-6.6 platelets 425 PHYSICAL EXAM: VITAL SIGNS: Reviewed. GENERAL: pale HEENT: No sclera icterus. Extraocular movements grossly intact. Moist buccal mucosa. Head is atraumatic, normocephalic. ABDOMEN: Soft. Mild distention. tenderness with palpation of lower abdomen more in the RLQ and lower mid abdomen NEUROLOGIC: Alert and oriented. Cranial nerves II through XII grossly intact. ASSESSMENT: 1. Acute Ulcerative Colitis status post colonoscopy 2. Acute blood loss anemia PLAN: -We'll transfuse 1 unit of blood for hemoglobin of 6.6 -Continue to monitor hemoglobin -Continue monitoring signs or symptoms of bleeding -Continue IV steroids -Continue antibiotics -Continue full liquid diet Physician [facility] note has been reviewed by physician. Signing provider agrees with the documented findings, assessment, and plan of care. I have personally seen and examined the patient, reviewed the [employer] [facility]PAs history, exam and MDM and agree with the assessment and plan as written. Based on total v isit time, I have performed more than 50% of the visit. As above: Patient says his pain today about the same as it was yesterday. Clinically his bleeding has improved as he has had multiple loose brown colored stools today. Unfortunately his abdominal discomfort has not improved with the initiation of IV steroids. Pathology results reviewed with patient and do appear to be more consistent with inflammatory bowel disease. Patient complaining of some bloating. On exam the patient is mildly distended. Encourage patient to increase ambulation. Repeat abdominal x-rays tomorrow. Continue antibiotics. Objective - Vital Signs Vital signs: Vital Signs Temp 98.0 F 02/14/22 11:30 Pulse 101 H 02/14/22 11:30 Resp 18 02/14/22 11:30 BP 125/88 02/14/22 11:30 Pulse Ox 92 L 02/14/22 11:30 FiO2 Intake & Output 02/13/22 02/14/22 02/14/22 18:59 06:59 18:59 Intake Total 240 Balance 240 Intake: Oral 240 Other: Voiding Method Toilet Toilet # Voids 2 2 # Bowel Movements 1 2 - Labs CBC & Chem 7: 02/14/22 06:45 02/13/22 08:28 Labs: Abnormal Lab Results - Last 24 Hours (Table) 02/13/22 02/14/22 Range/Units 08:28 06:45 WBC 14.9 H 13.66 H (3.8-10.6) k/uL RBC 2.35 L (4.40-5.60) X 10*6/uL Hgb 6.6 L* (13.0-17.0) g/dL Hct 20.2 L (39.6-50.0) % RDW 17.7 H (11.5-14.5) % MPV 9.2 L (9.5-12.2) fL Absolute Nucleated RBC 0.07 H (0.00-0.00) X 10*3/uL Neutrophils # (Manual) 11.90 H (1.3-7.7) k/uL Metamyelocytes # (Man) 0.15 H (0) k/uL Myelocytes # (Manual) 0.30 H (0) k/uL Nucleated RBCs 3 H (0-0) /100 WBC NRBC/100 WBC Diff 0.5 H (0.0-0.0) /100 WBCS Microbiology - Last 24 Hours (Table) 02/07/22 16:22 Blood Culture - Final Blood No Growth after 144 hours 02/07/22 16:00 Blood Culture - Final Blood No Growth after 144 hours
--- NOTE | 2022-02-14 23:15 | P.PN ---
Subjective Progress Note Date: 02/14/22 This is a 61-year-old male who was recently admitted with abdominal pain and bleeding per rectum with a history of hemorrhoids although CT was done showing a large segmental circumferential thickening with inflammatory changes involving the sigmoid, descending and transverse colon and is being closely monitored. Infectious disease and general surgery consulted and patient was maintained on Flagyl and Levaquin and is being transitioned to IV ceftriaxone along with Flagyl and IV hydration. Patient continues with elevated WBC of 12.01 and hemoglobin is stable at 10.0. Sodium is 134 and potassium critically low at 2.6 today. Will replace per protocol and will also add potassium to the IV. C. dif f testing was negative. Patient being treated for colitis and is maintained on clear liquids. Patient reports he continues to have diarrhea and multiple episodes although less frequent today. Stool cultures also ordered and pending at this time. Recommend follow-up potassium level in the evening and we'll continue to replace. Patient is currently afebrile denies chest pain or shortness of breath. Patient denies nausea or vomiting and is tolerating the clear liquids. Patient reports anything he eats is passing through him within the next few hours. 02/09/2022 Patient is evaluated today resting in bed. He reports 2 episode of bright red rectal bleeding this morning with stool mixed in. He has some lower abdominal cramping today. He does have hemorrhoids. General surgery is following and recommending colonoscopy pending clinical course possibly outpatient. Patient is also being followed by infectious disease he continues on antibiotics in the form of IV ceftriaxone and IV metronidazole. Labs today showing sodium at 134, potassium 3.4, BUN 8, creatinine 0.85, calcium 6.6, magnesium 1.8. C.Dif is negative. He will receive electrolyte replacement. Blood pressure stable today 137/87. 02/10/2022 Patient is resting in bed today. He reports being up to the bathroom every 2 hours last night, mainly he did not want to have any stool incontinence. He remains on clear liquid diet, and IV hydration with normal saline/20 meq potassium at 130 mls per hour. He reports mostly clear stool mixed with bright red blood. He denies abdominal pain but does have some cramping prior to having a BM. Continues on IV ceftriaxone and also IV metronidazole. Blood culture remains negative, stool culture is currently pending. White count today 11.27, hgb 9.2. Labs have improved today sodium is 137, potassium 4.0, magnesium 2.3, calcium 6.9 corrected to 8.5. Afebrile, mild tachycardia low 100s, blood pressurue 118/79. General surgery and infectious disease are following. Possible colonoscopy pending clinical course. 02/11/2022 Patient is evaluated today resting in bed, he continues to report bloody bowel movements. He does state that they have slowed down some though. He continues on IV antibiotics with infectious disease following. General Surgery is planning for EGD tomorrow. Patient does have fluids running at 130 mls per hour, oxygen saturation today is 92% with chest xray showing left lower lobe patchy airspace opacities atelectasis versus pneumonia. Possible small left pleural effusion. Incentive spirometer at bedside and discussed with patient he needs to sit up and increase acitivity level. Chest xray has been reviewed and felt there are vascular markings for possible fluid overload, would recommend discontinuing IV fluids for now and monitoring patient. If he becomes hypoxic consider IV lasix x1 dose. holding off lasix for now as patient is denying shortness of breath and clinically not in respiratory distress. His lungs are diminished. He is currently prepping for EGD. 02/12/2022 Patient is seen and evaluated in follow-up this morning and is scheduled for colonoscopy with Dr. Cardozo today. Patient completed the bowel prep and reports improvement in the rectal bleeding. Currently NPO. Hemoglobin is 7.7 and recommend repeat labs. Follow up on colonoscopy report. Continue abx for now. Patient is afebrile and denies chest pain or shortness of breath. BMP reviewed and within normal limits. 02/13/2022 Patient is seen in follow-up this morning having continued pain in his postop colonoscopy with general surgery following closely. Patient has been started on IV steroids and will continue. Per nursing staff patient had a bowel movement that was strictly blood and no stool. Hemoglobin is currently stable at 8.5. Patient reports increased abdominal pain and continues to receive IV Dilaudid. BMP reviewed potassium is stable at 3.5 with a sodium of 135. Creatinine is stable. Vital signs are stable and patient is afebrile. Patient is 94% on room air. Patient was started on full liquid diet and will continue and awaiting biopsy results and recommending continuing on antibiotics. 02/14/2022 Patient is seen this morning and awaiting repeat cbc as patient did have multiple episodes of loose bloody bowel movements yesterday. Patient is pale on exam. Recommend to transfuse if less than 7. Surgery following and patient is continued on IV abx and also IV steroids. ID following. Patient reports to loose stools today but becoming less bloody and more stool noted. Patient is afebrile and denies chest pain or shortness of breath. Patient reports continued abdominal pain and some bloating. Encourage more frequent ambulation. Recommend to continue with incentive spirometer. Continue full liquid diet. Review of systems: Constitutional: No reports of fatigue, fever, or chills Cardiovascular: No reports of chest pain or palpitations Respiratory: No reports of shortness of breath or cough GI: No reports of nausea, no reports of of vomiting, reports more brown now loose bowel movements with no clots noted : No reports of dysuria or retention Neurovascular: reports of generalized weakness and continued pain of the abdomen All medications have been reviewed PHYSICAL EXAMINATION: GENERAL: The patient is alert and oriented x4, Well developed, well nourished. HEENT: Pupils are round and equally reacting to light. EOMI. no scleral icterus. No conjunctival pallor. Normocephalic, atraumatic. No pharyngeal erythema. No thyromegaly. CARDIOVASCULAR: S1 and S2 muffled PULMONARY: diminished breath sounds bilaterally with no wheezing or rhonchi noted. ABDOMEN: soft. Mildly tender on exam. obese. slightly-distended, normoactive bowel sounds. No palpable organomegaly. MUSCULOSKELETAL: No joint swelling or deformity. EXTREMITIES: No cyanosis, clubbing, or pedal edema. NEUROLOGICAL: Gross neurological examination did not reveal any focal deficits. SKIN: No rashes. Pale Assessment: Abdominal pain with diarrhea, acute colitis acute blood loss anemia secondary to above Leukocytosis secondary to above Rectal bleeding secondary to hemorrhoids and continued diarrhea Rule out GI bleed Atelectasis patient is not moving much mostly bedrest Hypokalemia from continued diarrhea, improved Hypomagnesemia from continued diarrhea, improved Hyponatremia from poor oral intake, improved with IV fluids GI prophylaxis DVT prophylaxis Full code Plan: Continue full liquid diet, post colonoscopy showing consistent with colitis with erosions and ulcerations and small amount of fresh bleeding and some areas that had a somewhat ischemic appearance with multiple biopsies taken no evidence of diverticulitis noted along with evidence of internal and external hemorrhoids as well. Patient is being continued on high-dose IV steroids and will continue Continue IV ceftriaxone, IV metronidazole with infectious disease following Stool culture pending at this time Monitor electrolytes and continue with IV fluids, potassium is 3.5 today and will repeat labs with possible replacement as needed Patient had multiple episodes of bloody bowel movements yesterday and hemoglobin dropped to 6.6 and a unit of blood is ordered. Patient reports some more brown stools noted today with less bleeding. Encourage activity level and incentive spirometry General surgery following and recommending close monitoring of hemoglobin with f ollow up labs ordered.. Recommend to transfuse if hemoglobin is 7 or less. The impression and plan of care has been dictated by Razia Myrick, nurse practitioner as directed. Dr. Rolando MD I have performed a history and examination and MDM of this patient, discussed the same with the dictator, and agree with the dictator's assessment and plan as written ,documented as a scribe. Based on total visit time, I have performed more than 50% of the visit. Any additional findings or plans will be noted. Objective - Vital Signs Vital signs: Vital Signs Temp 97.6 F 02/14/22 05:00 Pulse 107 H 02/14/22 05:00 Resp 16 02/14/22 05:00 BP 138/94 02/14/22 05:00 Pulse Ox 95 02/14/22 05:00 FiO2 Intake & Output 02/13/22 02/14/22 02/14/22 18:59 06:59 18:59 Intake Total 240 Balance 240 Intake: Oral 240 Other: Voiding Method Toilet Toilet # Voids 2 2 # Bowel Movements 1 2 - Labs CBC & Chem 7: 02/14/22 06:45 02/13/22 08:28 Labs: Abnormal Lab Results - Last 24 Hours (Table) 02/13/22 Range/Units 08:28 WBC 14.9 H (3.8-10.6) k/uL Neutrophils # (Manual) 11.90 H (1.3-7.7) k/uL Metamyelocytes # (Man) 0.15 H (0) k/uL Myelocytes # (Manual) 0.30 H (0) k/uL Nucleated RBCs 3 H (0-0) /100 WBC Microbiology - Last 24 Hours (Table) 02/07/22 16:22 Blood Culture - Final Blood No Growth after 144 hours 02/07/22 16:00 Blood Culture - Final Blood No Growth after 144 hours
[2022-02-14] MEDS: HYDROmorphone 0.5 MG/0.5 ML SYRINGE IVP PRN (23:52)
[2022-02-15] MEDS: metroNIDAZOLE-NS PMX 500 MG in SALINE 1 100ML.BAG IVPB SCH ×4 (03:08→21:05)
[2022-02-15] MEDS: HYDROmorphone 1 MG/ML 1 ML SYRINGE IVP PRN ×6 (03:08→21:03)
[2022-02-15] MEDS: AMPICILLIN-SULBACTAM 3 GM in SODIUM CHLORIDE 0.9% 100 ML IVPB SCH ×3 (05:10→17:12)
[2022-02-15] MEDS: PANTOPRAZOLE 40 MG/10 ML VIAL IV SCH (07:53)
[2022-02-15] MEDS: METOPROLOL TARTRATE 12.5 MG TAB PO SCH (07:54)
[2022-02-15] MEDS: methylPREDNISolone SOD SUCCI 125 MG/2 ML VIAL IV SCH ×2 (07:54→16:06)
--- NOTE | 2022-02-15 07:54 | XR ---
EXAMINATION TYPE: XR abdomen 2V DATE OF EXAM: 02/15/2022 CLINICAL DATA: 61-year-old male follow-up colitis, [facility] COMPARISON: 02/07/2022 FINDINGS: There appears to be small left pleural effusion with left basilar opacity. No evidence for free intraperitoneal air. As compared to 02/07/2022, there has been development of diffuse dilatation of the right side of the co león and transverse colon. Distention up to 9.2 cm and air-fluid levels. Platelets in the right side o f the pelvis. No dilated small bowel loops. IMPRESSION: 1. Suspect worsening and progression to severe pancolitis. Given the new dilatation up to 9.2 cm, cor relation can be made to exclude secondary toxic megacolon. 2. New small left pleural effusion with patchy left basilar atelectasis/infiltrate.
--- NOTE | 2022-02-15 08:14 | P.PN ---
Subjective Progress Note Date: 02/11/22 Principal diagnosis: Diarrhea/colitis Patient is a 61-year-old male presenting to the hospital with diarrhea and crampy abdominal pain symptoms have been going on for about a week before presentation hospital cedar abdominal pannus with a long segment wall thickening and inflammatory changes concerning for colitis stool for C. diff was negative. On today's evaluation that is 02/11/2022, the patient continue to be afebrile, patient still complaining of crampy abdominal pain and diarrhea which are blood stained , patient denies having any nausea vomiting, the patient denies having any chest pain shortness of breath or cough, no new symptoms Objective - Vital Signs Vital signs: Vital Signs Temp 98.5 F 02/11/22 04:49 Pulse 101 H 02/11/22 04:49 Resp 18 02/11/22 04:49 BP 121/82 02/11/22 04:49 Pulse Ox 92 L 02/11/22 04:49 FiO2 Intake & Output 02/10/22 02/11/22 02/11/22 18:59 06:59 18:59 Intake Total 1710 1560 Balance 1710 1560 Intake: Intake, IV Titration 1710 1560 Amount 0.9% NaCl with KCl 20 Meq 1560 1560 /l 1,000 ml @ 130 mls/hr IV .[id number] [facility] Rx#: [id number] cefTRIAXone 2 gm In 50 Sodium Chloride 0.9% 50 ml @ 100 mls/hr IVPB Q24HR [facility] Rx#:[id number] metroNIDAZOLE-NS PMX 500 100 mg In Saline 1 100ml.bag @ 100 mls/hr IVPB Q6H [facility] Rx#:[id number] Other: Voiding Method Toilet - Exam GENERAL DESCRIPTION: An elderly male lying in bed in no distress RESPIRATORY SYSTEM: Unlabored breathing , decreased breath sounds at bases HEART: S1 S2 regular rate and rhythm , ABDOMEN: Soft , mild distention and tenderness EXTREMITIES: No edema feet - Labs CBC & Chem 7: 02/14/22 06:45 02/13/22 08:28 Labs: Abnormal Lab Results - Last 24 Hours (Table) 02/10/22 02/10/22 Range/Units 05:32 05:32 Plt Count Comment INCREASED A Metamyelocytes % 1 H (0-0) % Neutrophils # (Manual) 9.47 H (2.00-8.90) X 10*3/uL Anion Gap 7.60 L (10.00-18.00) mmol/L BUN 7.8 L (9.0-27.0) mg/dL BUN/Creatinine Ratio 8.64 L (12.00-20.00) Ratio Glucose 113 H (70-110) mg/dL Calcium 6.9 L (8.7-10.3) mg/dL Total Protein 4.4 L (6.2-8.2) g/dL Albumin 2.0 L (3.8-4.9) g/dL Albumin/Globulin Ratio 0.83 L (1.60-3.17) g/dL Microbiology - Last 24 Hours (Table) 02/08/22 13:35 Stool Culture - Preliminary Stool 02/07/22 16:22 Blood Culture - Preliminary Blood No Growth after 72 hours 02/07/22 16:00 Blood Culture - Preliminary Blood No Growth after 72 hours Assessment and Plan (1) Acute colitis Current Visit: Yes Status: Acute Code(s): K52.9 - NONINFECTIVE GASTROENTERITIS AND COLITIS, UNSPECIFIED SNOMED Code(s): 11030224 Plan: 1patient presented to hospital with diarrhea and crampy abdominal pain in this patient with a low-grade fever also have elevated white count with a CT abdominal pelvis suggestive of a long segment of colitis with a question of infectious versus noninfectious etiology patient did not have any recent antibiotic exposure and stool for C. difficile negative. 2 stool culture are still pending as of 02/10/2022 3patient will be switched to Unasyn continue with Questran for symptomatic relief and possible colonoscopy in the a.m. per surgery Time with Patient: Less than 30
--- NOTE | 2022-02-15 08:16 | P.PN ---
Subjective Progress Note Date: 02/12/22 Principal diagnosis: Diarrhea/colitis Patient is a 61-year-old male presenting to the hospital with diarrhea and crampy abdominal pain symptoms have been going on for about a week before presentation hospital cedar abdominal pannus with a long segment wall thickening and inflammatory changes concerning for colitis stool for C. diff was negative. Patient is status post colonoscopy completed 02/12/2022 with evidence of colitis biopsies has been obtained which are currently pending On today's evaluation that is 02/12/2022, the patient remains to be afebrile, patient abdominal pain slightly decreased in intensity diarrhea has slowed, still has slight blood in it denies any chest pain shortness of breath or cough Objective - Vital Signs Vital signs: Vital Signs Temp 98.6 F 02/12/22 12:08 Pulse 105 H 02/12/22 12:08 Resp 16 02/12/22 12:08 BP 124/83 02/12/22 12:08 Pulse Ox 93 L 02/12/22 12:08 FiO2 Intake & Output 02/12/22 02/12/22 02/13/22 06:59 18:59 06:59 Intake Total 300 100 Balance 300 100 Weight 90.718 kg Intake: IV 100 Intake, IV Titration 300 Amount Ampicillin-Sulbactam 3 gm 100 In Sodium Chloride 0.9% 100 ml @ 200 mls/hr IVPB Q6HR [facility] Rx#:[id number] metroNIDAZOLE-NS PMX 500 200 mg In Saline 1 100ml.bag @ 100 mls/hr IVPB Q6H [facility] Rx#:[id number] Other: Voiding Method Toilet # Voids 3 # Bowel Movements 3 - Exam GENERAL DESCRIPTION: An elderly male lying in bed in no distress RESPIRATORY SYSTEM: Unlabored breathing , decreased breath sounds at bases HEART: S1 S2 regular rate and rhythm , ABDOMEN: Soft , mild distention and tenderness EXTREMITIES: No edema feet - Labs CBC & Chem 7: 02/14/22 06:45 02/13/22 08:28 Labs: Abnormal Lab Results - Last 24 Hours (Table) 02/12/22 02/12/22 Range/Units 07:28 07:28 WBC 14.59 H (4.50-10.00) X 10*3/uL RBC 2.81 L (4.40-5.60) X 10*6/uL Hgb 7.7 L (13.0-17.0) g/dL Hct 24.0 L (39.6-50.0) % RDW 17.3 H (11.5-14.5) % Plt Count 481 H (140-440) X 10*3/uL Plt Count Comment INCREASED A MPV 9.0 L (9.5-12.2) fL Absolute Nucleated RBC 0.05 H (0.00-0.00) X 10*3/uL Immature Gran # 0.59 H (0.00-0.04) X 10*3/uL Neutrophils # 11.52 H (1.80-7.70) X 10*3/uL NRBC/100 WBC Diff 0.3 H (0.0-0.0) /100 WBCS BUN/Creatinine Ratio 11.56 L (12.00-20.00) Ratio Calcium 6.9 L (8.7-10.3) mg/dL Microbiology - Last 24 Hours (Table) 02/07/22 16:00 Blood Culture - Preliminary Blood No Growth after 120 hours 02/07/22 16:22 Blood Culture - Preliminary Blood No Growth after 120 hours 02/08/22 13:35 Stool Culture - Final Stool Assessment and Plan (1) Acute colitis Current Visit: Yes Status: Acute Code(s): K52.9 - NONINFECTIVE GASTROENTERITIS AND COLITIS, UNSPECIFIED SNOMED Code(s): 55857868 Plan: 1patient presented to hospital with diarrhea and crampy abdominal pain in this patient with a low-grade fever also have elevated white count with a CT abdominal pelvis suggestive of a long segment of colitis with a question of infectious versus noninfectious etiology patient did not have any recent antibiotic exposure and stool for C. difficile negative. 2 stool culture has been negative,colon Biopsy reports are currently pending 3patient has been started on steroids to continue along with the Unasyn and monitor clinical course closely Time with Patient: Less than 30
--- NOTE | 2022-02-15 08:18 | P.PN ---
Subjective Progress Note Date: 02/13/22 Principal diagnosis: Diarrhea/colitis Patient is a 61-year-old male presenting to the hospital with diarrhea and crampy abdominal pain symptoms have been going on for about a week before presentation hospital cedar abdominal pannus with a long segment wall thickening and inflammatory changes concerning for colitis stool for C. diff was negative. Patient is status post colonoscopy completed 02/12/2022 with evidence of colitis biopsies has been obtained which are currently pending On today's evaluation that is 02/13/2022, the patient is afebrile, patient abdominal pain as slightly decreased in intensity, the patient diarrhea has slowed down however still has slight blood in it, the patient denies any chest pain shortness of breath or cough Objective - Vital Signs Vital signs: Vital Signs Temp 97.9 F 02/13/22 11:10 Pulse 97 02/13/22 11:10 Resp 18 02/13/22 11:10 BP 129/79 02/13/22 11:10 Pulse Ox 94 L 02/13/22 11:10 FiO2 Intake & Output 02/12/22 02/13/22 02/13/22 18:59 06:59 18:59 Intake Total 100 200 240 Balance 100 200 240 Weight 90.718 kg Intake: IV 100 Intake, IV Titration 200 Amount Ampicillin-Sulbactam 3 gm 200 In Sodium Chloride 0.9% 100 ml @ 200 mls/hr IVPB Q6HR [facility] Rx#:[id number] Oral 240 Other: Voiding Method Toilet # Bowel Movements 2 1 - Exam GENERAL DESCRIPTION: An elderly male lying in bed in no distress RESPIRATORY SYSTEM: Unlabored breathing , decreased breath sounds at bases HEART: S1 S2 regular rate and rhythm , ABDOMEN: Soft , mild distention and tenderness EXTREMITIES: No edema feet - Labs CBC & Chem 7: 02/14/22 06:45 02/13/22 08:28 Labs: Abnormal Lab Results - Last 24 Hours (Table) 02/13/22 02/13/22 Range/Units 08:28 08:28 WBC 15.3 H (3.8-10.6) k/uL RBC 3.05 L (4.30-5.90) m/uL Hgb 8.5 L D (13.0-17.5) gm/dL Hct 26.8 L (39.0-53.0) % RDW 16.7 H (11.5-15.5) % Plt Count 598 H (150-450) k/uL Sodium 135 L (137-145) mmol/L Glucose 182 H (74-99) mg/dL Calcium 7.0 L (8.4-10.2) mg/dL Microbiology - Last 24 Hours (Table) 02/07/22 16:00 Blood Culture - Preliminary Blood No Growth after 120 hours 02/07/22 16:22 Blood Culture - Preliminary Blood No Growth after 120 hours Assessment and Plan (1) Acute colitis Current Visit: Yes Status: Acute Code(s): K52.9 - NONINFECTIVE GASTROENTERITIS AND COLITIS, UNSPECIFIED SNOMED Code(s): 29712971 Plan: 1patient presented to hospital with diarrhea and crampy abdominal pain in this patient with a low-grade fever also have elevated white count with a CT abdominal pelvis suggestive of a long segment of colitis with a question of infectious versus noninfectious etiology patient did not have any recent antibiotic exposure and stool for C. difficile negative. 2 stool culture has been negative,colon Biopsy reports are currently pending 3patient seemed to showing some clinical improvement and will continue with steroids along with the Unasyn and monitor clinical course closely Time with Patient: Less than 30
--- NOTE | 2022-02-15 08:19 | P.PN ---
Subjective Progress Note Date: 02/14/22 Principal diagnosis: Diarrhea/colitis Patient is a 61-year-old male presenting to the hospital with diarrhea and crampy abdominal pain symptoms have been going on for about a week before presentation hospital cedar abdominal pannus with a long segment wall thickening and inflammatory changes concerning for colitis stool for C. diff was negative. Patient is status post colonoscopy completed 02/12/2022 with evidence of colitis biopsies has been obtained which are currently pending On today's evaluation that is 02/14/2022, the patient denies any fever or any chills, patient abdominal pain has decreased in intensity, the patient diarrhea has slowed down and no significant blood in it, the patient denies any chest pain shortness of breath or cough Objective - Vital Signs Vital signs: Vital Signs Temp 98.0 F 02/14/22 11:30 Pulse 101 H 02/14/22 11:30 Resp 18 02/14/22 11:30 BP 125/88 02/14/22 11:30 Pulse Ox 92 L 02/14/22 11:30 FiO2 Intake & Output 02/13/22 02/14/22 02/14/22 18:59 06:59 18:59 Intake Total 240 Balance 240 Intake: Oral 240 Other: Voiding Method Toilet Toilet Toilet # Voids 2 2 # Bowel Movements 1 2 - Exam GENERAL DESCRIPTION: An elderly male lying in bed in no distress RESPIRATORY SYSTEM: Unlabored breathing , decreased breath sounds at bases HEART: S1 S2 regular rate and rhythm , ABDOMEN: Soft , mild distention and tenderness EXTREMITIES: No edema feet - Labs CBC & Chem 7: 02/14/22 06:45 02/13/22 08:28 Labs: Abnormal Lab Results - Last 24 Hours (Table) 02/13/22 02/14/22 Range/Units 08:28 06:45 WBC 14.9 H 13.66 H (3.8-10.6) k/uL RBC 2.35 L (4.40-5.60) X 10*6/uL Hgb 6.6 L* (13.0-17.0) g/dL Hct 20.2 L (39.6-50.0) % RDW 17.7 H (11.5-14.5) % MPV 9.2 L (9.5-12.2) fL Absolute Nucleated RBC 0.07 H (0.00-0.00) X 10*3/uL Neutrophils # (Manual) 11.90 H (1.3-7.7) k/uL Metamyelocytes # (Man) 0.15 H (0) k/uL Myelocytes # (Manual) 0.30 H (0) k/uL Nucleated RBCs 3 H (0-0) /100 WBC NRBC/100 WBC Diff 0.5 H (0.0-0.0) /100 WBCS Microbiology - Last 24 Hours (Table) 02/07/22 16:22 Blood Culture - Final Blood No Growth after 144 hours 02/07/22 16:00 Blood Culture - Final Blood No Growth after 144 hours Assessment and Plan (1) Acute colitis Current Visit: Yes Status: Acute Code(s): K52.9 - NONINFECTIVE GASTROENTERITIS AND COLITIS, UNSPECIFIED SNOMED Code(s): 82523066 Plan: 1patient presented to hospital with diarrhea and crampy abdominal pain in this patient with a low-grade fever also have elevated white count with a CT abdominal pelvis suggestive of a long segment of colitis with a question of infectious versus noninfectious etiology patient did not have any recent antibiotic exposure and stool for C. difficile negative. 2 stool culture has been negative,colon Biopsy reported as chronic active colitis 3patient has shown some clinical improvement and will continue with steroids along with the Unasyn and continue with supportive care Time with Patient: Less than 30
[2022-02-15 09:04] LABS: HGB 7.3 g/dL (13.0-17.0); MCH 28.4 pg (27.0-32.0); MCHC 33.2 g/dL (32.0-37.0); MCV 85.6 fL (80.0-97.0); NRBC Per 100 WBC 1.5 /100 WBCS (0.0-0.0); Platelet Count 397 X 10*3/uL (140-440); RBC 2.57 X 10*6/uL (4.40-5.60); RDW 17.7 % (11.5-14.5); WBC 14.92 X 10*3/uL (4.50-10.00)
[2022-02-15 09:47] LABS: Basophils # (M) 0 X 10*3/uL (0.00-0.10); Eosinophils # (M) 0 X 10*3/uL (0.04-0.35); Metamyelocytes % 1 % (0-0); Neutrophils # (M) 13.88 X 10*3/uL (2.00-8.90); Neutrophils % (M) 93 %
[2022-02-15] MEDS: HYDROCORTISONE SUCCINATE 100 MG/2 ML VIAL IV SCH ×3 (09:54→21:03)
[2022-02-15] MEDS: CHOLESTYRAMINE (WITH SUGAR) 4 GM PACKET PO SCH ×2 (09:56→19:57)
--- NOTE | 2022-02-15 12:13 | P.PN ---
Subjective Progress Note Date: 02/15/22 CHIEF COMPLAINT: Colitis HISTORY OF PRESENT ILLNESS: Patient is status post colonoscopy with biopsy. Bio psy results showing chronic active colitis with mucosal ulceration. Negative for dysplasia. Patient reports no further bloody bowel movements. He is having brown stools. He is reporting abdominal distention and some tenderness. He is afebrile. Mildly tachycardic. Abdominal x-ray this morning shows worsening and progression of severe pancolitis. Given the new dilatation up to 9.2 cm correla tion can be made to exclude secondary toxic megacolon. Patient seen and examined with Dr. Cardozo. Discussed option of being transferred to the patient could be evaluated by a GI specialist. There is no GI specialist available at this hospital this week. Patient is agreeable to transfer. Patient did receive 1 unit of blood for hemoglobin of 6.6. Hemoglobin did come up to 7.3. WBC is 14.92. Patient's shortness of breath is better today PHYSICAL EXAM: VITAL SIGNS: Reviewed. GENERAL: Patient not as pale HEENT: No sclera icterus. Extraocular movements grossly intact. Moist buccal mucosa. Head is atraumatic, normocephalic. ABDOMEN: Soft. Mild distention. Diffuse tenderness NEUROLOGIC: Alert and oriented. Cranial nerves II through XII grossly intact. ASSESSMENT: 1. Acute Ulcerative Colitis status post colonoscopy 2. Acute blood loss anemia requiring blood transfusion PLAN: -Recommend transfer to tertiary care level to be evaluated by GI service and progression of patient's colitis on imaging with concerns for developing toxic megacolon even with treatment -Solu-Cortef added for IV steroids -Continue to monitor hemoglobin -Continue monitoring signs or symptoms of bleeding -Continue antibiotics -Continue full liquid diet Physician Technical Aid note has been reviewed by physician. Signing provider agrees with the documented findings, assessment, and plan of care. I have personally seen and examined the patient, reviewed the ELECTRICAL/INSTRUMENT TECHNICIAN /PAs history, exam and MDM and agree with the assessment and plan as written. Based on total visit time, I have performed more than 50% of the visit. As above: The patient says he feels better than he did yesterday afternoon. Still feels bloated. He says his pain is improved. Still having loose stools on a regular basis that are nonbloody. Today's white blood cell count slightly elevated from yesterday and hemoglobin improved at 7.3. Abdominal x-rays show transverse colon dilation 9 cm with loss of haustral markings. Clinical scenario concerning for toxic megacolon. Discussed options with the patient and his family. Recommend tertiary care evaluation for GI input on this complicated case. Currently the patient does require surgical intervention and he does seem somewhat improved from yesterday. The patient and his family discussed the options together and also with the medical service. Apparently they have agreed for transfer. Objective - Vital Signs Vital signs: Vital Signs Temp 98.1 F 02/15/22 04:36 Pulse 97 02/15/22 04:36 Resp 18 02/15/22 04:36 BP 126/85 02/15/22 04:36 Pulse Ox 94 L 02/15/22 04:36 FiO2 Intake & Output 02/14/22 02/15/22 02/15/22 18:59 06:59 18:59 Intake Total 400 406 Balance 400 406 Intake: Intake, IV Titration 400 Amount Ampicillin-Sulbactam 3 gm 200 In Sodium Chloride 0.9% 100 ml @ 200 mls/hr IVPB Q6HR [facility] Rx#:[id number] metroNIDAZOLE-NS PMX 500 200 mg In Saline 1 100ml.bag @ 100 mls/hr IVPB Q6H [facility] Rx#:[id number] Oral 120 Blood Product 286 Rc Pheresis As-3 Unit 286 [id number] Other: Voiding Method Toilet Toilet # Voids 1 # Bowel Movements 4 4 - Labs CBC & Chem 7: 02/15/22 05:32 02/13/22 08:28 Labs: Abnormal Lab Results - Last 24 Hours (Table) 02/14/22 02/14/22 02/15/22 Range/Units 06:45 12:55 05:32 WBC 13.66 H 14.92 H (4.50-10.00) X 10*3/uL RBC 2.35 L 2.57 L (4.40-5.60) X 10*6/uL Hgb 6.6 L* 7.3 L (13.0-17.0) g/dL Hct 20.2 L 22.0 L (39.6-50.0) % RDW 17.7 H 17.7 H (11.5-14.5) % MPV 9.2 L 9.0 L (9.5-12.2) fL Absolute Nucleated RBC 0.07 H 0.23 H (0.00-0.00) X 10*3/uL Metamyelocytes % 1 H (0-0) % Neutrophils # (Manual) 13.88 H (2.00-8.90) X 10*3/uL Lymphocytes # (Manual) 0.60 L (0.90-5.00) X 10*3/uL Eosinophils # (Manual) 0 L (0.04-0.35) X 10*3/uL NRBC/100 WBC Diff 0.5 H 1.5 H (0.0-0.0) /100 WBCS Crossmatch See Detail
--- NOTE | 2022-02-15 14:36 | P.PN ---
Subjective Progress Note Date: 02/15/22 This is a 61-year-old male who was recently admitted with abdominal pain and bleeding per rectum with a history of hemorrhoids although CT was done showing a large segmental circumferential thickening with inflammatory changes involving the sigmoid, descending and transverse colon and is being closely monitored. Infectious disease and general surgery consulted and patient was maintained on Flagyl and Levaquin and is being transitioned to IV ceftriaxone along with Flagyl and IV hydration. Patient continues with elevated WBC of 12.01 and hemoglobin is stable at 10.0. Sodium is 134 and potassium critically low at 2.6 today. Will replace per protocol and will also add potassium to the IV. C. dif f testing was negative. Patient being treated for colitis and is maintained on clear liquids. Patient reports he continues to have diarrhea and multiple episodes although less frequent today. Stool cultures also ordered and pending at this time. Recommend follow-up potassium level in the evening and we'll continue to replace. Patient is currently afebrile denies chest pain or shortness of breath. Patient denies nausea or vomiting and is tolerating the clear liquids. Patient reports anything he eats is passing through him within the next few hours. 02/09/2022 Patient is evaluated today resting in bed. He reports 2 episode of bright red rectal bleeding this morning with stool mixed in. He has some lower abdominal cramping today. He does have hemorrhoids. General surgery is following and recommending colonoscopy pending clinical course possibly outpatient. Patient is also being followed by infectious disease he continues on antibiotics in the form of IV ceftriaxone and IV metronidazole. Labs today showing sodium at 134, potassium 3.4, BUN 8, creatinine 0.85, calcium 6.6, magnesium 1.8. C.Dif is negative. He will receive electrolyte replacement. Blood pressure stable today 137/87. 02/10/2022 Patient is resting in bed today. He reports being up to the bathroom every 2 hours last night, mainly he did not want to have any stool incontinence. He remains on clear liquid diet, and IV hydration with normal saline/20 meq potassium at 130 mls per hour. He reports mostly clear stool mixed with bright red blood. He denies abdominal pain but does have some cramping prior to having a BM. Continues on IV ceftriaxone and also IV metronidazole. Blood culture remains negative, stool culture is currently pending. White count today 11.27, hgb 9.2. Labs have improved today sodium is 137, potassium 4.0, magnesium 2.3, calcium 6.9 corrected to 8.5. Afebrile, mild tachycardia low 100s, blood pressurue 118/79. General surgery and infectious disease are following. Possible colonoscopy pending clinical course. 02/11/2022 Patient is evaluated today resting in bed, he continues to report bloody bowel movements. He does state that they have slowed down some though. He continues on IV antibiotics with infectious disease following. General Surgery is planning for EGD tomorrow. Patient does have fluids running at 130 mls per hour, oxygen saturation today is 92% with chest xray showing left lower lobe patchy airspace opacities atelectasis versus pneumonia. Possible small left pleural effusion. Incentive spirometer at bedside and discussed with patient he needs to sit up and increase acitivity level. Chest xray has been reviewed and felt there are vascular markings for possible fluid overload, would recommend discontinuing IV fluids for now and monitoring patient. If he becomes hypoxic consider IV lasix x1 dose. holding off lasix for now as patient is denying shortness of breath and clinically not in respiratory distress. His lungs are diminished. He is currently prepping for EGD. 02/12/2022 Patient is seen and evaluated in follow-up this morning and is scheduled for colonoscopy with Dr. Cardozo today. Patient completed the bowel prep and reports improvement in the rectal bleeding. Currently NPO. Hemoglobin is 7.7 and recommend repeat labs. Follow up on colonoscopy report. Continue abx for now. Patient is afebrile and denies chest pain or shortness of breath. BMP reviewed and within normal limits. 02/13/2022 Patient is seen in follow-up this morning having continued pain in his postop colonoscopy with general surgery following closely. Patient has been started on IV steroids and will continue. Per nursing staff patient had a bowel movement that was strictly blood and no stool. Hemoglobin is currently stable at 8.5. Patient reports increased abdominal pain and continues to receive IV Dilaudid. BMP reviewed potassium is stable at 3.5 with a sodium of 135. Creatinine is stable. Vital signs are stable and patient is afebrile. Patient is 94% on room air. Patient was started on full liquid diet and will continue and awaiting biopsy results and recommending continuing on antibiotics. 02/14/2022 Patient is seen this morning and awaiting repeat cbc as patient did have multiple episodes of loose bloody bowel movements yesterday. Patient is pale on exam. Recommend to transfuse if less than 7. Surgery following and patient is continued on IV abx and also IV steroids. ID following. Patient reports to loose stools today but becoming less bloody and more stool noted. Patient is afebrile and denies chest pain or shortness of breath. Patient reports continued abdominal pain and some bloating. Encourage more frequent ambulation. Recommend to continue with incentive spirometer. Continue full liquid diet. 02/15/2022 Patient is seen in follow-up this morning and reports he is feeling slightly better than yesterday although appears to be continued in critical condition. Repeat abdominal x-ray today shows worsening progression to severe pancolitis with new dilatation of 9.2 cm and difficult to exclude toxic megacolon with new small left pleural effusion with patchy left basilar atelectasis, infiltrate. Patient is maintained on IV antibiotics with general surgery and ID following and recommending transfer to tertiary treatment center for GI services and possible colorectal intervention. Multiple tertiary [facility] centers contacted and all full and have [facility] Dr. Corbett admitting hospitalist along with surgeon Dr. Ramirez and has accepted the patient in transfer team is working on a bed assignment. Of note patient has reported an increase in bloody bowel movements again that started this morning. Hemoglobin was found to be 7.3 after 1 unit of PRBC transfusion. Will repeat CBC this afte rnoon and transfuse as needed. Patient is not Covid vaccinated and Covid testing was negative today. Patient and partner at the bedside are agreeable to the transfer and aware we are waiting a bed assignment. Patient is continued on full liquid diet although not eating much as patient does have abdominal distention and continued abdominal pain. Will continue to monitor closely as prognosis is extremely guarded. Review of systems: Constitutional: No reports of fatigue, fever, or chills, reports some anxiety Cardiovascular: No reports of chest pain or palpitations Respiratory: No reports of shortness of breath or cough GI: No reports of nausea, no reports of of vomiting, reports bloody loose bowel movements and started again : No reports of dysuria or retention Neurovascular: reports of generalized weakness and continued pain of the abdomen All medications have been reviewed PHYSICAL EXAMINATION: GENERAL: The patient is alert and oriented x4, Well developed, well nourished. Anxious HEENT: Pupils are round and equally reacting to light. EOMI. no scleral icterus. No conjunctival pallor. Normocephalic, atraumatic. No pharyngeal erythema. No thyromegaly. CARDIOVASCULAR: S1 and S2 muffled PULMONARY: diminished breath sounds bilaterally with no wheezing or rhonchi no tiesha. ABDOMEN: soft. Mildly tender on exam. obese. slightly more-distended, normoactive bowel sounds. No palpable organomegaly. MUSCULOSKELETAL: No joint swelling or deformity. EXTREMITIES: No cyanosis, clubbing, or pedal edema. NEUROLOGICAL: Gross neurological examination did not reveal any focal deficits. SKIN: No rashes. Pale Assessment: Abdominal pain with diarrhea, acute ulcerative colitis acute blood loss anemia secondary to above Concern for possible toxic megacolon as noted on x-ray findings Leukocytosis secondary to above Rectal bleeding secondary to hemorrhoids and continued diarrhea Rule out GI bleed Atelectasis patient is not moving much mostly bedrest Hypokalemia from continued diarrhea, improved Hypomagnesemia from continued diarrhea, improved Hyponatremia from poor oral intake, improved with IV fluids GI prophylaxis DVT prophylaxis Full code Plan: Continue full liquid diet, post colonoscopy showing consistent with ulcerative colitis with erosions and ulcerations and small amount of fresh bleeding and some areas that had a somewhat ischemic appearance with multiple biopsies taken no evidence of diverticulitis noted along with evidence of internal and external hemorrhoids as well. Patient is being continued on high-dose IV steroids and will continue, IV dose steroids changed to Solu-Cortef with no significant improvement and repeat abdominal x-ray this morning's concerns for developing toxic megacolon with dilatation of 9 cm and surgery recommending transfer to tertiary treatment center for GI services and surgery evaluation for possible colectomy Continue IV ceftriaxone, IV metronidazole with infectious disease following Stool culture pending at this time Monitor electrolytes and continue with IV fluids, potassium is 3.5 today and will repeat labs with possible replacement as needed Patient is having episodes of bloody bowel movements today again and hemoglobin is 7.2 after 1 unit of PRBC and will repeat CBC this afternoon and transfuse if less than 7. Encourage activity level and incentive spirometry General surgery following and recommending close monitoring of hemoglobin with follow up labs ordered.. Recommend to transfuse if hemoglobin is 7 or less. Patient has been accepted by Dr. corbett along with surgeon Dr. Hess from [facility] for transfer to tertiary treatment center and awaiting on a bed assignment and will call the unit once available Prognosis is extremely guarded at this time. The impression and plan of care has been dictated by Razia Myrick, nurse practitioner as directed. Dr. Rolando MD I have performed a history and examination and MDM of this patient, discussed the same with the dictator, and agree with the dictator's assessment and plan as written ,documented as a scribe. Based on total visit time, I have performed more than 50% of the visit. Any additional findings or plans will be noted. Objective - Vital Signs Vital signs: Vital Signs Temp 98.1 F 02/15/22 04:36 Pulse 97 02/15/22 04:36 Resp 18 02/15/22 04:36 BP 126/85 02/15/22 04:36 Pulse Ox 94 L 02/15/22 04:36 FiO2 Intake & Output 02/14/22 02/15/22 02/15/22 18:59 06:59 18:59 Intake Total 400 406 Balance 400 406 Intake: Intake, IV Titration 400 Amount Ampicillin-Sulbactam 3 gm 200 In Sodium Chloride 0.9% 100 ml @ 200 mls/hr IVPB Q6HR [facility] Rx#:[id number] metroNIDAZOLE-NS PMX 500 200 mg In Saline 1 100ml.bag @ 100 mls/hr IVPB Q6H [facility] Rx#:[id number] Oral 120 Blood Product 286 Rc Pheresis As-3 Unit 286 [id number] Other: Voiding Method Toilet Toilet # Voids 1 # Bowel Movements 4 4 - Labs CBC & Chem 7: 02/15/22 05:32 02/13/22 08:28 Labs: Abnormal Lab Results - Last 24 Hours (Table) 02/14/22 02/14/22 02/15/22 Range/Units 06:45 12:55 05:32 WBC 13.66 H 14.92 H (4.50-10.00) X 10*3/uL RBC 2.35 L 2.57 L (4.40-5.60) X 10*6/uL Hgb 6.6 L* 7.3 L (13.0-17.0) g/dL Hct 20.2 L 22.0 L (39.6-50.0) % RDW 17.7 H 17.7 H (11.5-14.5) % MPV 9.2 L 9.0 L (9.5-12.2) fL Absolute Nucleated RBC 0.07 H 0.23 H (0.00-0.00) X 10*3/uL NRBC/100 WBC Diff 0.5 H 1.5 H (0.0-0.0) /100 WBCS Crossmatch See Detail
--- NOTE | 2022-02-15 14:52 | P.DS ---
Providers Date of admission: 02/07/22 15:53 Expected date of discharge: 02/15/22 Attending physician: Johnson Elaine Consults: 02/07/22 15:51 Consult Physician Urgent Consulting Provider: Zechariah Cardozo Consult Reason/Comments: Colitis, diverticular Do you want consulting provider notified?: Yes 02/07/22 17:29 Consult Physician Routine Consulting Provider: Beny Collier Consult Reason/Comments: COLITIS Do you want consulting provider notified?: Yes Primary care physician: Destiny Zaldivar Hospital Course: Final diagnosis Abdominal pain with diarrhea, acute ulcerative colitis acute blood loss anemia secondary to above Concern for possible toxic megacolon as noted on x-ray findings Leukocytosis secondary to above Rectal bleeding secondary to hemorrhoids and continued diarrhea Rule out GI bleed Atelectasis patient is not moving much mostly bedrest Hypokalemia from continued diarrhea, improved Hypomagnesemia from continued diarrhea, improved Hyponatremia from poor oral intake, improved with IV fluids GI prophylaxis DVT prophylaxis Full code Discharge disposition Patient is being transferred in a stable condition with guarded prognosis to [facility] for further GI and colorectal specialist surgery consultation. Patient has been accepted by Dr. Cross as well as surgeon Dr. Hess and awaiting a bed assignment currently. Recommend patient to continue on Unasyn and Flagyl and also continue with IV Solu-Medrol at this time. Total time taken is greater than 35 minutes. Hospital course This is a 61-year-old male who was recently admitted with abdominal pain and rectal bleeding with no significant medical history although patient does have hemorrhoids and was being closely monitored. CT showed large segmental circumferential thickening with inflammatory changes involving the sigmoid, descending, transverse colon with general surgery and ID following. Patient was started on IV antibiotics and surgery following recommending colonoscopy which showed ulcerative colitis with extreme inflammation and multiple biopsies obtained. Patient continued to have bloody loose bowel movements and recommende d repeat imaging this morning of the x-ray of the abdomen which shows increased progression and worsening and concern for toxic megacolon measuring approximately 9.2 cm. Recommending transfer to [facility] for GI services as we have known here and also possible surgical intervention with possible colectomy. Patient did have acute blood loss anemia requiring 1 unit of PRBCs. Repeat hemoglobin today is 7.2 and we'll repeat this afternoon as patient is now continuing to have bloody bowel movements again. Patient having some increasing abdominal distention and continued pain and has been maintained on IV steroids with no significant improvement. Patient has been accepted by [facility] physicians and awaiting a bed assignment. Patient is not covid vaccinated and Covid testing was negative today. Currently no reports of chest pain, shortness of breath, or palpitations. Patient is afebrile. No reports of nausea or vomiting and patient is tolerating diet. Patient will be transferred to [facility] once a bed is available today. Prognosis is guarded. Physical exam: Gen: This is a 61-year-old male awake, alert and oriented 3, well-developed, well-nourished, anxious. HEENT: Head is atraumatic, normocephalic. Pupils equal, round. Sclerae is anicteric. NECK: Supple. No JVD. No lymphadenopathy. No thyromegaly. LUNGS: Diminished breath sounds bilaterally with no wheezing or rhonchi noted. No intercostal retractions. HEART: Regular rate and rhythm. No murmur. ABDOMEN: Soft. Distended and tender on palpation Bowel sounds are present. No masses. No tenderness. EXTREMITIES: No pedal edema. No calf tenderness. NEUROLOGICAL: Patient is awake, alert and oriented x3. Cranial nerves 2 through 12 are grossly intact. Please refer to medication reconciliation sheet for a list of medications. The impression and plan of care has been dictated by Razia Myrick, Nurse Practitioner as directed. Dr. Rolando MD I have performed a history and examination and MDM of this patient, discussed the same with the dictator, and agree with the dictator's assessment and plan as written ,documented as a scribe. Based on total visit time, I have performed more than 50% of the visit. Patient Condition at Discharge: Fair Plan - Discharge Summary Discharge Rx Participant: No New Discharge Prescriptions: No Action Multivitamins, Thera [Multivitamin (formulary)] 1 tab PO DAILY Discharge Medication List Multivitamins, Thera [Multivitamin (formulary)] 1 tab PO DAILY 02/07/22 [History] Follow up Appointment(s)/Referral(s): None,Stated [REFERRING] - 1-2 days Activity/Diet/Wound Care/Special Instructions: Patient is being transferred to [facility] for GI, surgical, colorectal services once a bed is available Discharge Disposition: OTHER INSTITUTION NOT DEFINED
--- NOTE | 2022-02-15 16:53 | P.PN ---
Subjective Progress Note Date: 02/15/22 Principal diagnosis: Diarrhea/colitis Patient is a 61-year-old male presenting to the hospital with diarrhea and crampy abdominal pain symptoms have been going on for about a week before presentation hospital [facility] abdominal pannus with a long segment wall thickening and inflammatory changes concerning for colitis stool for C. diff was negative. Patient is status post colonoscopy completed 02/12/2022 with evidence of colitis biopsies has been obtained which are currently pending On today's evaluation that is 02/15/2022, the patient continues to be afebrile, patient abdominal pain has decreased in intensity, the patient diarrhea has slowed down and not as bloody as he used to be , the patient denies any chest pain shortness of breath or cough, no new symptoms Objective - Vital Signs Vital signs: Vital Signs Temp 98.1 F 02/15/22 04:36 Pulse 97 02/15/22 04:36 Resp 18 02/15/22 04:36 BP 126/85 02/15/22 04:36 Pulse Ox 94 L 02/15/22 04:36 FiO2 Intake & Output 02/14/22 02/15/22 02/15/22 18:59 06:59 18:59 Intake Total 400 406 Balance 400 406 Intake: Intake, IV Titration 400 Amount Ampicillin-Sulbactam 3 gm 200 In Sodium Chloride 0.9% 100 ml @ 200 mls/hr IVPB Q6HR [facility] Rx#:[id number] metroNIDAZOLE-NS PMX 500 200 mg In Saline 1 100ml.bag @ 100 mls/hr IVPB Q6H [facility] Rx#:[id number] Oral 120 Blood Product 286 Rc Pheresis As-3 Unit 286 [id number] Other: Voiding Method Toilet Toilet Toilet # Voids 1 # Bowel Movements 4 4 - Exam GENERAL DESCRIPTION: An elderly male lying in bed in no distress RESPIRATORY SYSTEM: Unlabored breathing , decreased breath sounds at bases HEART: S1 S2 regular rate and rhythm , ABDOMEN: Soft , mild distention and tenderness EXTREMITIES: No edema feet - Labs CBC & Chem 7: 02/15/22 05:32 02/13/22 08:28 Labs: Abnormal Lab Results - Last 24 Hours (Table) 02/14/22 02/15/22 Range/Units 12:55 05:32 WBC 14.92 H (4.50-10.00) X 10*3/uL RBC 2.57 L (4.40-5.60) X 10*6/uL Hgb 7.3 L (13.0-17.0) g/dL Hct 22.0 L (39.6-50.0) % RDW 17.7 H (11.5-14.5) % MPV 9.0 L (9.5-12.2) fL Absolute Nucleated RBC 0.23 H (0.00-0.00) X 10*3/uL Metamyelocytes % 1 H (0-0) % Neutrophils # (Manual) 13.88 H (2.00-8.90) X 10*3/uL Lymphocytes # (Manual) 0.60 L (0.90-5.00) X 10*3/uL Eosinophils # (Manual) 0 L (0.04-0.35) X 10*3/uL NRBC/100 WBC Diff 1.5 H (0.0-0.0) /100 WBCS Crossmatch See Detail Assessment and Plan (1) Acute colitis Current Visit: Yes Status: Acute Code(s): K52.9 - NONINFECTIVE GASTROENTERITIS AND COLITIS, UNSPECIFIED SNOMED Code(s): 98540626 Plan: 1patient presented to hospital with diarrhea and crampy abdominal pain in this patient with a low-grade fever also have elevated white count with a CT abdominal pelvis suggestive of a long segment of colitis with a question of infectious versus noninfectious etiology patient did not have any recent antibiotic exposure and stool for C. difficile negative. 2 stool culture has been negative,colon Biopsy reported as chronic active colitis 3patient has shown some clinical improvement however the x-ray showing worsening and concerning for possible toxic megacolon patient is in the process of getting transferred to tertiary care continue with the current empiric antibiotic form of Unasyn and monitor clinical course closely Time with Patient: Less than 30
[2022-02-15 20:03] LABS: Anisocytosis Slight; HCT 25.8 % (39.0-53.0); HGB 8.2 gm/dL (13.0-17.5); Hypochromasia Slight; MCHC 31.9 g/dL (31.0-37.0); MCV 87.8 fL (80.0-100.0); Mean Platelet Volume 7.6; Platelet Count 458 k/uL (150-450); Poikilocytosis Slight; RBC 2.94 m/uL (4.30-5.90); RDW 17.5 % (11.5-15.5)
[2022-02-15 20:41] LABS: Band Neutrophils % 30 %; Lymphocytes # (M) 1.15 k/uL (1.0-4.8); Metamyelocytes # (M) 0.29 k/uL (0); Metamyelocytes % 3 %; Monocytes # (M) 0.19 k/uL (0-1.0); Myelocytes % 1 %; Neutrophils % (M) 53 %; Nucleated Red Blood Cells 7 /100 WBC (0-0); Polychromasia Present; Total Cells Counted 200; WBC 9.6 k/uL (3.8-10.6)
[2022-02-16] MEDS: HYDROCORTISONE SUCCINATE 100 MG/2 ML VIAL IV SCH ×2 (03:29→09:01)
[2022-02-16] MEDS: metroNIDAZOLE-NS PMX 500 MG in SALINE 1 100ML.BAG IVPB SCH (03:30)
[2022-02-16] MEDS: HYDROmorphone 1 MG/ML 1 ML SYRINGE IVP PRN ×3 (03:30→07:08)
[2022-02-16 03:40] VITALS: BP 145/94; PULSE 92; RESP 18; TEMP 97.7
[2022-02-16] MEDS: AMPICILLIN-SULBACTAM 3 GM in SODIUM CHLORIDE 0.9% 100 ML IVPB SCH ×3 (05:17)
[2022-02-16] MEDS: METOPROLOL TARTRATE 12.5 MG TAB PO SCH (09:00)
[2022-02-16] MEDS: PANTOPRAZOLE 40 MG/10 ML VIAL IV SCH (09:00)
--- NOTE | 2022-02-16 09:10 | P.PN ---
Progress Note - Text Progress Note Date: 02/16/22 Patient states he feels better today. He has finished his breakfast. He denies a significant abdominal pain. On exam vital signs are stable. Abdomen soft. Abdomen is distended. There is some minimal tenderness on palpation. Rivera colitis. Patient is. We will transfer to a tertiary care hospital.
== END 2022-02-16 11:00 | disposition short-term general hospital (02) | DRG 386 ==
LOC: EC 11:06 → 5NMEDONC 15:53
PROVIDERS: ADMIT Hospitalist; ATTEND Hospitalist
PROC: 0DBL8ZX Excision of Transverse Colon, Via Natural or Artificial Opening Endoscopic, Diagnostic (ICD-10-PCS; principal; 2022-02-12 07:55)
PROC: 30233N1 Transfusion of Nonautologous Red Blood Cells into Peripheral Vein, Percutaneous Approach (ICD-10-PCS; 2022-02-15)
DX: K51.911 Ulcerative colitis, unspecified with rectal bleeding (principal); D62 Acute posthemorrhagic anemia; E87.1 Hypo-osmolality and hyponatremia; J98.11 Atelectasis; R00.0 Tachycardia, unspecified; K57.92 Diverticulitis of intestine, part unspecified, without perforation or abscess without bleeding; K64.4 Residual hemorrhoidal skin tags; E83.42 Hypomagnesemia; E87.6 Hypokalemia; K64.8 Other hemorrhoids; Z79.52 Long term (current) use of systemic steroids; Z80.8 Family history of malignant neoplasm of other organs or systems; Z82.0 Family history of epilepsy and other diseases of the nervous system
CPT/HCPCS: 36415; 45380; 71046; 74018; 74019; 74177; 80048; 80053; 82150; 82272; 83605; 83690; 83735; 84132; 85025; 85027; 85610; 85730; 86850; 86900; 86901; 86920; 87040; 87045; 87046; 87324; 87635; 88305; 93005; 96365; 96366; 96375; 99291

== ENCOUNTER 2022-03-18 11:32 | Emergency (ER) | payer OTHER ==
[2022-03-18 11:43] VITALS: TEMP 98.7
--- NOTE | 2022-03-18 15:06 | ED ---
General Adult HPI - General Chief complaint: GI Bleed Stated complaint: rectal bleeding Time Seen by Provider: 03/18/22 14:00 Source: patient, RN notes reviewed, old records reviewed Mode of arrival: ambulatory Limitations: no limitations - History of Present Illness Initial comments: This is a 61-year-old male who presents emergency Department having had a total colectomy for ulcerative colitis 3 weeks ago. Patient has an ileostomy. Patient comes in because there was a reddish color drainage coming from his rectum so he didn't know if his blood so he was concerned. Patient denies being symptomatic. Patient denies lightheadedness or dizziness. Patient denies any chest pain palpitations or difficulty breathing. Patient denies any significant abdominal pain other than a little soreness from his surgery. Patient denies any fever chills or cough - Related Data Home Medications Medication Instructions Recorded Confirmed Multivitamins, Thera [Multivitamin 1 tab PO DAILY 02/07/22 02/07/22 (formulary)] Allergies Allergy/AdvReac Type Severity Reaction Status Date / Time No Known Allergies Allergy Verified 03/18/22 11:43 Review of Systems ROS Statement: Those systems with pertinent positive or pertinent negative responses have been documented in the HPI. ROS Other: All systems not noted in ROS Statement are negative. Past Medical History Past Medical History: No Reported History History of Any Multi-Drug Resistant Organisms: None Reported Past Surgical History: Hernia Repair Additional Past Surgical History / Comment(s): Pt is unsure but thinks he may have had a colonoscopy many years ago. Ileostomy. Past Anesthesia/Blood Transfusion Reactions: No Reported Reaction Past Psychological History: No Psychological Hx Reported Smoking Status: Never smoker Past Alcohol Use History: Rare Past Drug Use History: None Reported - Past Family History Father Family Medical History: Cancer, Musculoskeletal Disorder, Neurologic Disorder Additional Family Medical History / Comment(s): Father had melanoma and parkinson's dx. He is . Mother Family Medical History: No Reported History Additional Family Medical History / Comment(s): Mother is healthy General Exam - General Exam Comments Initial Comments: GENERAL: Patient is well-developed and well-nourished. Patient is nontoxic and well- hydrated and is in no acute distress. ENT: Neck is soft and supple. No significant lymphadenopathy is noted. Oropharynx is clear. Moist mucous membranes. Neck has full range of motion without eliciting any pain. EYES: The sclera were anicteric and conjunctiva were pink and moist. Extraocular movements were intact and pupils were equal round and reactive to light. Eyelids were unremarkable. PULMONARY: Unlabored respirations. Good breath sounds bilaterally. No audible rales rhonchi or wheezing was noted. CARDIOVASCULAR: There is a regular rate and rhythm without any murmurs gallops or rubs. ABDOMEN: Soft and nontender with normal bowel sounds. Patient has an ileostomy. RECTAL: Rectal exam was normal occult blood was sent SKIN: Skin is clear with no lesions or rashes and otherwise unremarkable. NEUROLOGIC: Patient is alert and oriented x3. Cranial nerves II through XII are grossly intact. Motor and sensory are also intact. Normal speech, volume and content. Symmetrical smile. MUSCULOSKELETAL: Normal extremities with adequate strength and full range of motion. No lower extremity swelling or edema. No calf tenderness. LYMPHATICS: No significant lymphadenopathy is noted PSYCHIATRIC: Normal psychiatric evaluation. Limitations: no limitations Course Vital Signs 03/18/22 11:41 Temperature 98.7 F Pulse Rate 124 H Respiratory 22 Rate Blood Pressure 105/78 O2 Sat by Pulse 97 Oximetry Medical Decision Making - Medical Decision Making Patient's occult blood was positive however hemoglobin was 11.3 which is considerably higher than his last visit multiple. Patient remained asymptomatic. I spoke with Dr. Juliane Cardozo wanted him to contact his surgeon's and follow-up with them. EKG shows sinus tachycardia at 106 bpm FL interval 138 QRS is 82 QT interval 320 QTC is 382. Patient's EKG shows no ST segment elevation or depression. - Lab Data Result diagrams: 03/18/22 15:46 03/18/22 15:46 Lab Results 03/18/22 03/18/22 03/18/22 Range/Units 15:46 15:46 15:46 WBC 10.6 (3.8-10.6) k/uL RBC 3.85 L (4.30-5.90) m/uL Hgb 11.3 L D (13.0-17.5) gm/dL Hct 34.7 L (39.0-53.0) % MCV 90.3 (80.0-100.0) fL MCH 29.4 (25.0-35.0) pg MCHC 32.5 (31.0-37.0) g/dL RDW 15.4 (11.5-15.5) % Plt Count 614 H (150-450) k/uL MPV 6.9 Neutrophils % (Manual) 85 % Band Neuts % (Manual) 1 % Lymphocytes % (Manual) 13 % Monocytes % (Manual) 1 % Neutrophils # (Manual) 9.10 H (1.3-7.7) k/uL Lymphocytes # (Manual) 1.38 (1.0-4.8) k/uL Monocytes # (Manual) 0.11 (0-1.0) k/uL Nucleated RBCs 0 (0-0) /100 WBC Manual Slide Review Performed Hypochromasia Marked PT 10.5 (9.0-12.0) sec INR 1.0 (<1.2) APTT 22.4 (22.0-30.0) sec Sodium 136 L (137-145) mmol/L Potassium 5.3 H (3.5-5.1) mmol/L Chloride 100 (98-107) mmol/L Carbon Dioxide 24 (22-30) mmol/L Anion Gap 12 mmol/L BUN 10 (9-20) mg/dL Creatinine 0.72 (0.66-1.25) mg/dL Est GFR (CKD-EPI)AfAm >90 (>60 ml/min/1.73 sqM) Est GFR (CKD-EPI)NonAf >90 (>60 ml/min/1.73 sqM) Glucose 106 H (74-99) mg/dL Calcium 9.0 (8.4-10.2) mg/dL Magnesium 2.0 (1.6-2.3) mg/dL Total Bilirubin 0.7 (0.2-1.3) mg/dL AST 59 (17-59) U/L ALT 55 H (4-49) U/L Alkaline Phosphatase 162 H (38-126) U/L Troponin I (0.000-0.034) ng/mL Total Protein 7.8 (6.3-8.2) g/dL Albumin 3.6 (3.5-5.0) g/dL Stool Occult Blood (Negative) 03/18/22 03/18/22 Range/Units 15:46 Unknown WBC (3.8-10.6) k/uL RBC (4.30-5.90) m/uL Hgb (13.0-17.5) gm/dL Hct (39.0-53.0) % MCV (80.0-100.0) fL MCH (25.0-35.0) pg MCHC (31.0-37.0) g/dL RDW (11.5-15.5) % Plt Count (150-450) k/uL MPV Neutrophils % (Manual) % Band Neuts % (Manual) % Lymphocytes % (Manual) % Monocytes % (Manual) % Neutrophils # (Manual) (1.3-7.7) k/uL Lymphocytes # (Manual) (1.0-4.8) k/uL Monocytes # (Manual) (0-1.0) k/uL Nucleated RBCs (0-0) /100 WBC Manual Slide Review Hypochromasia PT (9.0-12.0) sec INR (<1.2) APTT (22.0-30.0) sec Sodium (137-145) mmol/L Potassium (3.5-5.1) mmol/L Chloride (98-107) mmol/L Carbon Dioxide (22-30) mmol/L Anion Gap mmol/L BUN (9-20) mg/dL Creatinine (0.66-1.25) mg/dL Est GFR (CKD-EPI)AfAm (>60 ml/min/1.73 sqM) Est GFR (CKD-EPI)NonAf (>60 ml/min/1.73 sqM) Glucose (74-99) mg/dL Calcium (8.4-10.2) mg/dL Magnesium (1.6-2.3) mg/dL Total Bilirubin (0.2-1.3) mg/dL AST (17-59) U/L ALT (4-49) U/L Alkaline Phosphatase (38-126) U/L Troponin I <0.012 (0.000-0.034) ng/mL Total Protein (6.3-8.2) g/dL Albumin (3.5-5.0) g/dL Stool Occult Blood Positive (Negative) Disposition Clinical Impression: Rectal bleeding Disposition: HOME SELF-CARE Condition: Good Instructions (If sedation given, give patient instructions): Rectal Bleeding (ED) Additional Instructions: Patient should follow-up with his surgeon tomorrow. Returns emergency department any increased bleeding difficulty breathing lightheadedness or syncopal episode. Is patient prescribed a controlled substance at d/c from ED?: No Referrals: Nonstaff,Physician [Primary Care Provider] - 1-2 days Time of Disposition: 16:27
[2022-03-18 15:55] LABS: HCT 34.7 % (39.0-53.0); Hypochromasia Marked; MCH 29.4 pg (25.0-35.0); MCHC 32.5 g/dL (31.0-37.0); MCV 90.3 fL (80.0-100.0); Mean Platelet Volume 6.9; Platelet Count 614 k/uL (150-450); RBC 3.85 m/uL (4.30-5.90); RDW 15.4 % (11.5-15.5); WBC 10.6 k/uL (3.8-10.6)
[2022-03-18 16:03] LABS: HGB 11.3 gm/dL (13.0-17.5)
[2022-03-18 16:06] LABS: ALT 55 U/L (4-49); AST 59 U/L (17-59); African American GFR (CKD) >90 (>60 ml/min/1.73 sqM); Albumin 3.6 g/dL (3.5-5.0); Alkaline Phosphatase 162 U/L (38-126); Anion Gap 12 mmol/L; Blood Urea Nitrogen 10 mg/dL (9-20); Carbon Dioxide 24 mmol/L (22-30); Chloride 100 mmol/L (98-107); Glucose 106 mg/dL (74-99); Non-African American GFR(CKD) >90 (>60 ml/min/1.73 sqM); Sodium 136 mmol/L (137-145); Total Bilirubin 0.7 mg/dL (0.2-1.3); Total Protein 7.8 g/dL (6.3-8.2)
[2022-03-18 16:11] LABS: Potassium 5.3 mmol/L (3.5-5.1)
[2022-03-18 16:12] LABS: Partial Thromboplastin Time 22.4 sec (22.0-30.0); Prothrombin Time 10.5 sec (9.0-12.0)
[2022-03-18 16:14] LABS: Band Neutrophils % 1 %; Lymphocytes # (M) 1.38 k/uL (1.0-4.8); Monocytes # (M) 0.11 k/uL (0-1.0); Neutrophils % (M) 85 %; Nucleated Red Blood Cells 0 /100 WBC (0-0); Total Cells Counted 100
[2022-03-18 17:21] VITALS: BP 110/68; PULSE 98; RESP 18
== END 2022-03-18 17:20 | disposition home or self-care (01) ==
LOC: EC 11:32
DX: K62.5 Hemorrhage of anus and rectum (principal)
CPT/HCPCS: 36415; 80053; 82272; 83735; 84484; 85025; 85610; 85730; 93005; 99283

== ENCOUNTER 2022-12-15 08:39 | Emergency (ER) | payer OTHER ==
[2022-12-15 08:46] VITALS: RESP 18; TEMP 99.3
--- NOTE | 2022-12-15 08:57 | ED ---
General Adult HPI - General Chief complaint: Skin/Abscess/Foreign Body Stated complaint: toe injury Time Seen by Provider: 12/15/22 08:47 Source: patient, RN notes reviewed, old records reviewed Mode of arrival: ambulatory Limitations: no limitations - History of Present Illness Initial comments: 62-year-old male presenting with complaints of right great toe pain for one week with inflammation and drainage. Denies any other symptoms. Recent bowel surgery and sepsis 2 months ago at [facility] currently with ileostomy. -: week(s) (1) Location: right (great toe) Severity scale (1-10): 4 Quality: constant Consistency: constant Associated Symptoms: denies other symptoms Treatments Prior to Arrival: none - Related Data Previous Rx's Medication Instructions Recorded Cephalexin [Keflex] 500 mg PO Q6HR 5 Days #20 cap 12/15/22 Allergies Allergy/AdvReac Type Severity Reaction Status Date / Time No Known Allergies Allergy Verified 12/15/22 08:46 Review of Systems ROS Statement: Those systems with pertinent positive or pertinent negative responses have been documented in the HPI. ROS Other: All systems not noted in ROS Statement are negative. Past Medical History Past Medical History: No Reported History History of Any Multi-Drug Resistant Organisms: None Reported Past Surgical History: Hernia Repair Additional Past Surgical History / Comment(s): Pt is unsure but thinks he may have had a colonoscopy many years ago. Ileostomy. Bowel surgery Past Anesthesia/Blood Transfusion Reactions: No Reported Reaction Past Psychological History: No Psychological Hx Reported Smoking Status: Never smoker Past Alcohol Use History: Rare Past Drug Use History: None Reported - Past Family History Father Family Medical History: Cancer, Musculoskeletal Disorder, Neurologic Disorder Additional Family Medical History / Comment(s): Father had melanoma and parkinson's dx. He is . Mother Family Medical History: No Reported History Additional Family Medical History / Comment(s): Mother is healthy General Exam Limitations: no limitations General appearance: alert, in no apparent distress Head exam: Present: atraumatic Eye exam: Present: normal appearance. Absent: scleral icterus, conjunctival injection, periorbital swelling Neck exam: Present: full ROM. Absent: meningismus Respiratory exam: Absent: respiratory distress, accessory muscle use Cardiovascular Exam: Present: tachycardia GI/Abdominal exam: Present: other (Ileostomy with brown stool) Extremities exam: Present: full ROM Right Foot/Toe exam: Present: tenderness, swelling, erythema (Great toe paronychia) Neurovascular tendon exam: Present: no vascular compromise. Absent: abnormal cap refill, pallor, foot drop Neurological exam: Present: alert, oriented X3 Psychiatric exam: Present: normal affect, normal mood Skin exam: Present: warm, dry, normal color. Absent: cyanosis, diaphoretic, petechiae, pallor Course Vital Signs 12/15/22 12/15/22 08:40 09:55 Temperature 99.3 F Pulse Rate 124 H 78 Respiratory 18 18 Rate Blood Pressure 121/91 130/74 O2 Sat by Pulse 100 99 Oximetry Procedures - Incision & Drainage Consent Obtained: verbal consent Site: foot (right great toe) Scalpel Used: #11 Needle Aspiration Performed?: No Irrigation Performed?: Yes I&D Drainage Obtained: Blood Culture Obtained?: No Patient Tolerated Procedure: well, no complications Medical Decision Making - Medical Decision Making Was pt. sent in by a medical professional or institution (, PA, [employer], urgent care, hospital, or intermediate...) When possible be specific @ -No Did you speak to anyone other than the patient for history (EMS, parent, family, police, friend...)? What history was obtained from this source @ -No Did you review nursing and triage notes (agree or disagree)? Why? @ -I reviewed and agree with nursing and triage notes Were old charts reviewed (outside hosp., previous admission, EMS record, old EKG, old radiological studies, urgent care reports/EKG's, intermediate records)? Report findings @ -No old charts were reviewed Differential Diagnosis (chest pain, altered mental status, abdominal pain women, abdominal pain men, vaginal bleeding, weakness, fever, dyspnea, syncope, headache, dizziness, GI bleed, back pain, seizure, CVA, palpatations, mental health, musculoskeletal)? @ -Cellulitis, foreign body, paronychia, gout EKG interpreted by me (3pts min.). @ -n/a X-rays interpreted by me (1pt min.). @ -None done CT interpreted by me (1pt min.). @ -None done U/S interpreted by me (1pt. min.). @ -None done What testing was considered but not performed or refused? (CT, X-rays, U/S, labs)? Why? @ -X-ray was considered however patient denies any trauma What meds were considered but not given or refused? Why? @ -None Did you discuss the management of the patient with other professionals (professionals i.e. , PA, [employer], lab, RT, psych nurse, social media campaign manager, marketing production manager, teacher, hospital chief financial officer, telephonic case manager)? Give summary @ -No Was smoking cessation discussed for >3mins.? @ -No Was critical care preformed (if so, how long)? @ -No Were there social determinants of health that impacted care today? How? (Homelessness, low income, unemployed, alcoholism, drug addiction, trans portation, low edu. Level, literacy, decrease access to med. care, assisted, rehab)? @ -No Was there de-escalation of care discussed even if they declined (Discuss DNR or withdrawal of care, Hospice)? DNR status @ -No What co-morbidities impacted this encounter? (DM, HTN, Smoking, COPD, CAD, Cancer, CVA, ARF, Chemo, Hep., AIDS, mental health diagnosis, sleep apnea, morbid obesity)? @ -Bowel resection with ileostomy, recent sepsis Was patient admitted / discharged? Hospital course, mention meds given and route, prescriptions, significant lab abnormalities, going to OR and other pertinent info. @ -Discharged 62-year-old male presenting with complaints of right great toe pain for one week with inflammation and drainage. Denies any other symptoms. Recent bowel surgery and sepsis 2 months ago at [facility] currently with ileostomy. Foot was soaked in warm soapy water for 15 minutes. Dried exudate and scale was removed. 11 blade scalpel used to I&D parallel to the nail. Antibiotics given and patient prescribed Keflex. Directed to continue to soak 4 times a day for 20 minutes at a time. Explained there may be an underlying ingrown nail that needs to be addressed with podiatry. Wear loosefitting shoes. Follow-up with primary care doctor next week. Return to the emergency room with a new or concerning symptoms. Patient family member agreeable to this plan of care. Case discussed with Dr. Cotter. Undiagnosed new problem with uncertain prognosis? @ -No Drug Therapy requiring intensive monitoring for toxicity (Heparin, Nitro, Insulin, Cardizem)? @ -No Were any procedures done? @ -Incision and drainage paronychia Diagnosis/symptom? @ -Paronychia, cellulitis Acute, or Chronic, or Acute on Chronic? @ -Acute Uncomplicated (without systemic symptoms) or Complicated (systemic symptoms)? @ -Complicated Side effects of treatment? @ -No Exacerbation, Progression, or Severe Exacerbation? @ -No Poses a threat to life or bodily function? How? (Chest pain, USA, ID, pneumonia, PE, COPD, DKA, ARF, appy, cholecystitis, CVA, Diverticulitis, Homicidal, Suicidal, threat to staff... and all critical care pts) @ -No Disposition Clinical Impression: Paronychia of great toe, right, Cellulitis of toe of right foot Disposition: HOME SELF-CARE Condition: Good Instructions (If sedation given, give patient instructions): Paronychia (ED), Cellulitis (ED) Additional Instructions: Take antibiotics as prescribed. Soak foot in warm soapy water twice a day. Follow-up with your primary care doctor this week for reevaluation. Return to the emergency room with any new or concerning symptoms. Prescriptions: Cephalexin [Keflex] 500 mg PO Q6HR 5 Days #20 cap Is patient prescribed a controlled substance at d/c from ED?: No Referrals: Nonstaff,Physician [REFERRING] - 1-2 days Time of Disposition: 09:37
[2022-12-15] MEDS ORDERED: CEPHALEXIN 500 MG CAP PO STA (09:20)
[2022-12-15] MEDS ORDERED: BACITRACIN OINT 1 EACH PACKET TOPICAL ONE (09:37)
[2022-12-15] MEDS ORDERED: IBUPROFEN 600 MG TAB PO STA (09:37)
[2022-12-15] MEDS ORDERED: ACETAMINOPHEN TAB 325 MG TAB PO STA (09:37)
[2022-12-15 09:56] VITALS: BP 130/74; PULSE 78
== END 2022-12-15 09:56 | disposition home or self-care (01) ==
LOC: EC 08:39
DX: L03.031 Cellulitis of right toe (principal)
CPT/HCPCS: 10060; 99283